=== PATIENT | female | born 1935 | race Caucasian/White ===

== ENCOUNTER 2016-09-03 12:04 | Emergency (ER) | payer OTHER ==
[~2016-09-03] VITALS: Ht 147.3 cm; Wt 90.8 kg
[~2016-09-03 12:04] MED LIST: ALBU1AER9 INH; CALC500C50 PO; CHOL20009 PO; DOXY100C2 PO; IBUP1CAP9 PO; METF500T5 PO; METO1TAB66 PO; MONT1TAB3 PO; NRV/10 PO; OMEG500C2 PO; QUIN20TA30 PO; ROSU20TA PO; SPIR25TA89 PO
[2016-09-03 12:08] VITALS: TEMP 36.9; Ht 147.3 cm; Wt 90.8 kg
--- NOTE | 2016-09-03 12:49 | EMERGENCY ROOM VISIT NOTE ---
History Report prepared by Maverick: Tanner Silva Under the Supervision of: Dr. Shereen Pierre M.D. First contact with patient: 12:24 Chief Complaint: BACK PAIN Stated Complaint: LOWER BACK PAIN History of Present Illness The patient is an 81 year old female who presents to the Emergency Room with complaints of worsening back pain that started a month ago. The patient presented to [facility] because the discomfort was more severe today than it had been. At [facility], they did an X-Ray that was inconclusive and they recommended she present to the ED for further evaluation. She notes that the discomfort is mostly on the left side and radiates upwards. The discomfort is worse with bending. She notes that she did not do more activity last night than she normally does. She denies urinary symptoms, abdominal pain, or fever. Source of History: patient Onset: a month ago Position: back Symptom Intensity: severe Timing: other (persistent) Modifying Factors (Worsening): other (bending) Associated Symptoms: No abdominal pain, No fevers, No urinary symptoms Review of Systems See HPI for pertinent positives & negatives. A total of 10 systems reviewed and were otherwise negative. Past Medical & Surgical Medical Problems: (1) Asthma (2) Diabetes (3) Heart disease (4) Hyperlipemia (5) Hypertension Surgical Problems: (1) History of appendectomy (2) History of cholecystectomy (3) History of hysterectomy (4) History of thyroidectomy Family History Diabetes mellitus Gallbladder disease Heart disease Hypertension Social History Smoking Status: Never Smoker Alcohol Use: none Marital Status: Housing Status: lives with significant other Occupation Status: retired Current/Historical Medications Scheduled Amlodipine Besylate (Amlodipine Besylate), 10 MG PO DAILY Calcium Carbonate (Antacid) (Tums), 2 TABS PO BIDM Cholecalciferol (Vitamin D), 2,000 UNITS PO DAILY Metformin Hcl Er (Glucophage Er), 500 MG PO QPM Metoprolol Succinate (Toprol Xl), 50 MG PO DAILY Montelukast Sodium (Singulair), 10 MG PO DAILY Rogers-3 Fatty Acids (Fish Oil), 1,000 MG PO BID Quinapril Hcl (Quinapril Hcl), 20 MG PO DAILY Rosuvastatin Calcium (Crestor), 20 MG PO DAILY Spironolactone (Aldactone), 25 MG PO DAILY Scheduled PRN Albuterol Sulfate (Proair Hfa), 2 PUFFS INH Q6H PRN for Shortness of Breath Doxycycline Hyclate (Vibramycin), 100 MG PO DAILY PRN for PRN Ibuprofen (Ibuprofen), 200 MG PO DAILY PRN for Pain Allergies Coded Allergies: Hydrochlorothiazide (Unverified Allergy, Unknown, unknown, 01/23/16) Physical Exam Vital Signs Date Time Temp Pulse Resp B/P Pulse Ox O2 Delivery O2 Flow Rate FiO2 09/03/16 14:50 78 16 154/68 96 09/03/16 13:47 68 16 134/70 09/03/16 12:08 36.9 71 16 148/65 97 Room Air Physical Exam Vital signs reviewed. General: Elderly-appearing female, in no significant distress, obese. HEENT: No scleral icterus, PERRLA, neck supple. Atraumatic. Cardiovascular: Regular rate and rhythm, no extra sounds. Pulmonary: Clear to auscultation bilaterally, normal work of breathing. Abdomen: Soft, tenderness to palpation to left lower quadrant to deep palpation , nondistended, positive bowel sounds. Musculoskeletal: Atraumatic, no peripheral edema. Mild tenderness over left lumbar spine, no CVA tenderness. Neurologic: Patient awake alert and oriented x 3, full strength in all 4 extremities. Cranial nerves 2 through 12 grossly intact. Skin: Warm, dry, no rash Medical Decision & Procedures ER Provider Diagnostic Interpretation: CT results as stated below per my review and radiologist interpretation: ABDOMEN AND PELVIS CT WITHOUT CONTRAST CT DOSE: 1042.71 mGycm HISTORY: Pain. Nausea. L flank pain TECHNIQUE: Multiaxial CT images of the abdomen and pelvis were performed without contrast. COMPARISON STUDY: None. FINDINGS: Lung bases are clear. Configuration of liver spleen and pancreas are unremarkable. There are several small hepatic hypodensities statistically consistent with cysts. Prior cholecystectomy. Pancreas is uniform. Kidneys are negative for calcification or hydronephrosis. Multiple lower pole left kidney suggests possibility of an exophytic mass measuring 2.9 x 1.9 cm. Bowel pattern is nonobstructive. There is no significant para-aortic or inguinal adenopathy. There are findings of sigmoid diverticulosis with evidence for moderate wall thickening. Mild pericolonic infiltrative change in the left lateral pericolonic region raising the possibility of acute diverticulitis. There is no evidence for abscess collection or obstruction. IMPRESSION: 1. Acute sigmoid diverticulitis. 2. No evidence for abscess collection or obstruction.. 3. Exophytic mass arising from the lower pole left kidney. A multi phase evaluation of the kidneys is suggested as initial follow-up. Alternatively, renal ultrasound could be utilized initially. 4. Study is otherwise negative post cholecystectomy Electronically signed by: Bruce Valdez M.D. 09/03/2016 2:07 PM Dictated Date/Time: 09/03/2016 2:02 PM Laboratory Results 09/03/16 13:20 Red Blood Count 4.45, Mean Corpuscular Volume 92.1, Mean Corpuscular Hemoglobin 31.9, Mean Corpuscular Hemoglobin Concent 34.6, Mean Platelet Volume 10.1, Neutrophils (%) (Auto) 56.4, Lymphocytes (%) (Auto) 31.4, Monocytes (%) (Auto) 11.8, Eosinophils (%) (Auto) 0.0, Basophils (%) (Auto) 0.4, Neutrophils # (Auto ) 2.64, Lymphocytes # (Auto) 1.47, Monocytes # (Auto) 0.55, Eosinophils # (Auto ) 0.00, Basophils # (Auto) 0.02 09/03/16 13:20 Test 09/03/16 13:15 09/03/16 13:20 Urine Color YELLOW Urine Appearance CLEAR (CLEAR) Urine pH 7.0 (4.5-7.5) Urine Specific Farrar 1.010 (1.000-1.030) Urine Protein NEG (NEG) Urine Glucose (UA) NEG (NEG) Urine Ketones NEG (NEG) Urine Occult Blood NEG (NEG) Urine Nitrite NEG (NEG) Urine Bilirubin NEG (NEG) Urine Urobilinogen NEG (NEG) Urine Leukocyte Esterase MODERATE (NEG) Urine WBC (Auto) 1-5 /hpf (0-5) Urine RBC (Auto) 0-4 /hpf (0-4) Urine Hyaline Casts (Auto) 0 /lpf (0-5) Urine Epithelial Cells (Auto) >30 /lpf (0-5) Urine Bacteria (Auto) NEG (NEG) White Blood Count 4.68 K/uL (4.8-10.8) Red Blood Count 4.45 M/uL (4.2-5.4) Hemoglobin 14.2 g/dL (12.0-16.0) Hematocrit 41.0 % (37-47) Mean Corpuscular Volume 92.1 fL (80-100) Mean Corpuscular Hemoglobin 31.9 pg (25-34) Mean Corpuscular Hemoglobin Concent 34.6 g/dl (32-36) Platelet Count 127 K/uL (130-400) Mean Platelet Volume 10.1 fL (7.4-10.4) Neutrophils (%) (Auto) 56.4 % Lymphocytes (%) (Auto) 31.4 % Monocytes (%) (Auto) 11.8 % Eosinophils (%) (Auto) 0.0 % Basophils (%) (Auto) 0.4 % Neutrophils # (Auto) 2.64 K/uL (1.4-6.5) Lymphocytes # (Auto) 1.47 K/uL (1.2-3.4) Monocytes # (Auto) 0.55 K/uL (0.11-0.59) Eosinophils # (Auto) 0.00 K/uL (0-0.5) Basophils # (Auto) 0.02 K/uL (0-0.2) RDW Standard Deviation 43.6 fL (36.4-46.3) RDW Coefficient of Variation 12.9 % (11.5-14.5) Immature Granulocyte % (Auto) 0.0 % Immature Granulocyte # (Auto) 0.00 K/uL (0.00-0.02) Anion Gap 5.0 mmol/L (3-11) Est Creatinine Clear Calc Drug Dose 46.3 ml/min Estimated GFR () 69.0 Estimated GFR (Non- 59.5 BUN/Creatinine Ratio 19.5 (10-20) Calcium Level 8.7 mg/dl (8.5-10.1) Total Bilirubin 0.5 mg/dl (0.2-1) Direct Bilirubin 0.1 mg/dl (0-0.2) Aspartate Amino Transf (AST/SGOT) 21 U/L (15-37) Alanine Aminotransferase (ALT/SGPT) 45 U/L (12-78) Alkaline Phosphatase 48 U/L (45-117) Total Protein 7.3 gm/dl (6.4-8.2) Albumin 3.7 gm/dl (3.4-5.0) Laboratory results per my review. Medications Administered Medications (Trade) Dose Ordered Sig/Janice Route Start Time Stop Time Status Last Admin Dose Admin Sodium Chloride (Nss 1000ml) 1,000 ml @ 125 mls/hr Q8H STAT IV 09/03/16 13:13 09/03/16 14:58 DC 09/03/16 13:28 125 MLS/HR ED Course 1242: Past medical records reviewed. The patient was evaluated in room A10. A complete history and physical examination was performed. 1313: Ordered NSS 1000 ml @ 125 mls/hr IV. 1436: Upon reevaluation, the patient appeared to have improvement of her symptoms. I discussed findings with her. She verbalized agreement of the treatment plan. She will follow-up with Dr. Acevedo - [facility] tomorrow in the clinic. The patient was discharged home. Medical Decision Differential diagnosis: Etiologies such as musculoskeletal, disc herniation, fracture, aortic disease, metastatic disease, cord compression, discitis, infection, renal colic, gastrointestinal, acute exacerbation of chronic back pain, sciatica, cauda equina, as well as others were entertained. This patient was evaluated and appeared to be in no significant distress. IV access was obtained and laboratory work was drawn. The patient was placed on the utility locate technician and found to be in a normal sinus rhythm. Patient was hydrated with normal saline solution. CT scan of the abdomen and pelvis was performed and reveals a mass on the left kidney. This may explain the patient' s flank discomfort. The patient was informed of the findings. There is no acute issue. The patient was asked to use oral Tylenol as needed for pain. She will follow-up with her physician tomorrow as scheduled by case management. Further workup can be ordered as an outpatient. The patient is aware of the plan and agrees. Impression Primary Impression: Left renal mass Additional Impression: Left flank pain Scribe Attestation The scribe's documentation has been prepared under my direction and personally reviewed by me in its entirety. I confirm that the note above accurately reflects all work, treatment, procedures, and medical decision making performed by me. Departure Information Dispostion Home / Self-Care Referrals Mavis Acevedo D.O. (PCP) Forms HOME CARE DOCUMENTATION FORM, IMPORTANT VISIT INFORMATION Patient Instructions My [facility] Additional Instructions Diagnosis: Left renal mass and flank pain Tylenol 650 mg every 6 hours as needed for pain. Warm compresses and gentle stretching. Follow-up with Dr. Acevedo tomorrow at 11 AM as scheduled by case management. Return to the emergency department for worsening of symptoms or any medical concerns. Problem Qualifiers
[2016-09-03] MEDS ORDERED: SODIUM CHLORIDE 0.9% 1000ML 1,000 ML IV STA (13:13)
[2016-09-03 13:33] LABS: BASO % 0.4 %; BASO ABS # 0.02 K/uL (0-0.2); COMPLETE YES; LYMPH % 31.4 %; LYMPH ABS # 1.47 K/uL (1.2-3.4); MEAN CELL VOLUME 92.1 fL (80-100); MEAN CORPUSCULAR HEMOGLOBIN 31.9 pg (25-34); MEAN CORPUSCULAR HGB CONC 34.6 g/dl (32-36); MEAN PLATELET VOLUME 10.1 fL (7.4-10.4); MONO % 11.8 %; NEUT % 56.4 %; PLATELET COUNT 127 K/uL (130-400); RED BLOOD COUNT 4.45 M/uL (4.2-5.4); WHITE BLOOD COUNT 4.68 K/uL (4.8-10.8)
[2016-09-03 13:34] LABS: URINE APPEARANCE CLEAR (CLEAR); URINE BILIRUBIN NEG (NEG); URINE COLOR YELLOW; URINE EPITHELIAL CELL AUTO >30 /lpf (0-5); URINE NITRITE NEG (NEG); UROBILINOGEN NEG (NEG); ZZUR CULT IF INDIC CLEAN CATCH NO
[2016-09-03 13:46] LABS: MANUAL MICROSCOPIC REQUIRED? NO; REVIEW REQ? NO
[2016-09-03 13:55] LABS: BUN/CREATININE RATIO 19.5 (10-20); CALCIUM 8.7 mg/dl (8.5-10.1); CREATININE 0.9 mg/dl (0.60-1.20); POTASSIUM 4.2 mmol/L (3.5-5.1)
--- NOTE | 2016-09-03 14:08 | DIAGNOSTIC IMAGING REPORT ---
ABDOMEN AND PELVIS CT WITHOUT CONTRAST CT DOSE: 1042.71 mGycm HISTORY: Pain. Nausea. L flank pain TECHNIQUE: Multiaxial CT images of the abdomen and pelvis were performed without contrast. COMPARISON STUDY: None. FINDINGS: Lung bases are clear. Configuration of liver spleen and pancreas are unremarkable. There are several small hepatic hypodensities statistically consistent with cysts. Prior cholecystectomy. Pancreas is uniform. Kidneys are negative for calcification or hydronephrosis. Multiple lower pole left kidney suggests possibility of an exophytic mass measuring 2.9 x 1.9 cm. Bowel pattern is nonobstructive. There is no significant para-aortic or inguinal adenopathy. There are findings of sigmoid diverticulosis with evidence for moderate wall thickening. Mild pericolonic infiltrative change in the left lateral pericolonic region raising the possibility of acute diverticulitis. There is no evidence for abscess collection or obstruction. IMPRESSION: 1. Acute sigmoid diverticulitis. 2. No evidence for abscess collection or obstruction.. 3. Exophytic mass arising from the lower pole left kidney. A multi phase evaluation of the kidneys is suggested as initial follow-up. Alternatively, renal ultrasound could be utilized initially. 4. Study is otherwise negative post cholecystectomy Electronically signed by: Bruce Valdez M.D. 09/03/2016 2:07 PM Dictated Date/Time: 09/03/2016 2:02 PM
[2016-09-03 14:50] VITALS: BP 154/68; PULSE 78; O2SAT 96
== END 2016-09-03 14:51 | disposition home or self-care (01) ==
LOC: C.EDB 12:06 → C.EDA 14:51
DX: N28.89 Other specified disorders of kidney and ureter (principal); R10.9 Unspecified abdominal pain; J45.909 Unspecified asthma, uncomplicated; E11.9 Type 2 diabetes mellitus without complications; E78.5 Hyperlipidemia, unspecified; I10 Essential (primary) hypertension; K57.32 Diverticulitis of large intestine without perforation or abscess without bleeding; Z90.710 Acquired absence of both cervix and uterus; Z83.3 Family history of diabetes mellitus; Z82.49 Family history of ischemic heart disease and other diseases of the circulatory system

== ENCOUNTER → 2016-10-28 | Outpatient (CLI) | payer OTHER ==
[~2016-10-28] MED LIST changes: +ASPI81TA28 PO; +CHOL20007 PO; +INSDGIPEN SQ; +METO-452 PO; -METO1TAB66 PO; +TRAM-10 PO
[2016-10-28 15:07] LABS: ALT/SGPT 51 U/L (12-78); BLOOD UREA NITROGEN 20 mg/dl (7-18); BUN/CREATININE RATIO 24.2 (10-20); CARBON DIOXIDE 33 mmol/L (21-32); CHLORIDE 103 mmol/L (98-107); CHOLESTEROL 148 mg/dl (0-200); CREATININE 0.84 mg/dl (0.60-1.20); GLUCOSE 89 mg/dl (70-99); POTASSIUM 4.3 mmol/L (3.5-5.1); SODIUM 139 mmol/L (136-145); TRIGLYCERIDES 321 mg/dl (0-150); VERY LOW DENSITY LIPOPROT CALC 64 mg/dl
[2016-10-28 15:13] LABS: CALCIUM 9.7 mg/dl (8.5-10.1)
[2016-10-28 15:16] LABS: ALB/GLOB RATIO 1.2 (0.9-2); ALKALINE PHOSPHATASE 51 U/L (45-117); AST/SGOT 28 U/L (15-37); CHOLESTEROL/HDL RATIO 3.3; HDL CHOLESTEROL 45 mg/dl; LDL CHOLESTEROL CALCULATED 39 mg/dl
[2016-10-28 15:31] LABS: RATIO 4.8 mcg/mg (0-30.0)
[2016-10-29 06:02] LABS: ESTIMATED AVERAGE GLUCOSE 137 mg/dl; HA1C FLAG Normal (Normal)
== END | disposition home or self-care (01) ==
LOC: C.LAB1850 12:44
PROVIDERS: ATTEND Nurse Practitioner Adult Health
DX: E11.9 Type 2 diabetes mellitus without complications (principal); E78.5 Hyperlipidemia, unspecified; I10 Essential (primary) hypertension; E66.01 Morbid (severe) obesity due to excess calories

== ENCOUNTER 2016-11-29 14:32 | Emergency (ER) | payer OTHER ==
[~2016-11-29] VITALS: Ht 147.3 cm; Wt 91.0 kg
[~2016-11-29 14:32] MED LIST changes: -ASPI81TA28 PO; -CHOL20007 PO; -INSDGIPEN SQ; -TRAM-10 PO
[2016-11-29 14:35] VITALS: TEMP 36.8; Ht 147.3 cm; Wt 91.0 kg
[2016-11-29] MEDS ORDERED: INSDGIPEN SQ (15:28)
[2016-11-29] MEDS ORDERED: ASPI81TA28 PO (15:30)
[2016-11-29] MEDS ORDERED: CHOL20007 PO (15:37)
--- NOTE | 2016-11-29 15:55 | DIAGNOSTIC IMAGING REPORT ---
CERVICAL SPINE 5 VIEWS HISTORY: R neck/shoulder pain COMPARISON: None. FINDINGS: The cervical spine is visualized from C1 through the superior endplate of T1. There is no fracture. No subluxation. Considerable degenerative disc change of the mid to lower cervical region. Prevertebral soft tissues and the atlantodens interval are intact. IMPRESSION: Considerable degenerative change. No acute process. Electronically signed by: Bruce Valdez M.D. 11/29/2016 3:54 PM Dictated Date/Time: 11/29/2016 3:53 PM
--- NOTE | 2016-11-29 15:56 | DIAGNOSTIC IMAGING REPORT ---
RIGHT SHOULDER MIN 2 VIEWS ROUTINE CLINICAL HISTORY: R neck/shoulder pain Right pain COMPARISON: None. DISCUSSION: Calcific supraspinatus tendinitis. Moderate degenerative change glenohumeral as well as acromioclavicular joint. No evidence for fracture. There is no evidence for soft tissue swelling. IMPRESSION: Calcific supraspinatus tendinitis. Moderate degenerative change. Electronically signed by: Bruce Valdez M.D. 11/29/2016 3:55 PM Dictated Date/Time: 11/29/2016 3:54 PM
[2016-11-29 16:30] VITALS: BP 133/68; PULSE 69; O2SAT 95
--- NOTE | 2016-11-29 16:41 | EMERGENCY ROOM VISIT NOTE ---
ED Visit Note First contact with patient: 14:40 Patient was seen by our PA/[employer] UP [employer]. I was involved in the patient's care and did evaluate the patient myself. I was involved in the care throughout the ER stay. The patient has right shoulder pain, she has calcific tendinitis on x-ray, she will be sent to orthopedics for follow-up.
[2016-11-29] MEDS ORDERED: TRAM-10 PO (16:54)
--- NOTE | 2016-11-29 17:02 | EMERGENCY ROOM VISIT NOTE ---
History First contact with patient: 14:40 Chief Complaint: SHOULDER PAIN Stated Complaint: PAIN IN SHOULDER PAIN History of Present Illness The patient is a 81 year old female who presents to the Emergency Room with complaints of right shoulder and neck pain for the past 4 days. The patient denies any known injury. The patient reports that she is not physically active , and cannot recall doing anything around the house to have injured her neck or shoulder. The patient is a back and side sleeper. She denies any prior history of neck stiffness or discomfort. She does report a history of moderately severe osteoarthritis, mostly in her knees. She also denies any history of right shoulder pain. She has noticed limited range of motion of the shoulder over the past few days as well. She reports that the pain radiates from her neck to her right elbow. She denies any paresthesias or numbness of the right hand or fingers. The patient is [id number], and rates her discomfort a 7 out of 10. Review of Systems 10 system review was performed and was negative except for pertinent positives and negatives as indicated in history of present illness Past Medical/Surgical History Medical Problems: (1) Asthma (2) Diabetes (3) Heart disease (4) Hyperlipemia (5) Hypertension (6) Osteoarthritis Surgical Problems: (1) History of appendectomy (2) History of cholecystectomy (3) History of hysterectomy (4) History of thyroidectomy Family History Diabetes mellitus Gallbladder disease Heart disease Hypertension Social History Smoking Status: Never Smoker Alcohol Use: none Marital Status: Housing Status: lives with significant other Occupation Status: retired Current/Historical Medications Scheduled Amlodipine Besylate (Amlodipine Besylate), 10 MG PO DAILY Aspirin (Aspirin Ec), 81 MG PO QPM Calcium Carbonate (Antacid) (Tums), 2 TABS PO BIDM Cholecalciferol (Vitamin D3), 2,000 UNITS PO DAILY Insulin Glargine (Lantus Solostar), 20 UNITS SQ QAM Metformin Hcl Er (Glucophage Er), 500 MG PO QPM Metoprolol Succinate (Toprol Xl), 50 MG PO DAILY Montelukast Sodium (Singulair), 10 MG PO DAILY Quinapril Hcl (Quinapril Hcl), 20 MG PO DAILY Rosuvastatin Calcium (Crestor), 20 MG PO DAILY Spironolactone (Aldactone), 25 MG PO DAILY Scheduled PRN Albuterol Sulfate (Proair Hfa), 2 PUFFS INH Q6H PRN for Shortness of Breath Doxycycline Hyclate (Vibramycin), 100 MG PO DAILY PRN for PRN Ibuprofen (Ibuprofen), 200 MG PO DAILY PRN for Pain Tramadol (Ultram), 1 TAB PO Q4H PRN for Pain Allergies Coded Allergies: Hydrochlorothiazide (Unverified Allergy, Unknown, unknown, 01/23/16) Physical Exam Vital Signs Date Time Temp Pulse Resp B/P (MAP) Pulse Ox O2 Delivery O2 Flow Rate FiO2 11/29/16 16:30 69 16 133/68 95 Room Air 11/29/16 14:35 36.8 80 20 157/77 96 Room Air Physical Exam CONSTITUTIONAL: Healthy and well nourished. Alert and oriented X 3 with positive affect. Patient does not appear in any acute distress. HEENT: Normocephalic, atraumatic. Pupils equal, round and reactive. Ears and nares are clear. No scleral icterus or conjunctival injection/pallor. NECK: Patient has mild discomfort with left lateral gaze. She has mild tenderness over the right lower cervical nerve roots. No focal tenderness through the paraspinous muscles or central cervical spine. She does have mild tenderness to the right sternocleidomastoid muscle. No muscle rigidity noted. No carotid bruits or JVD on examination. RESPIRATORY: Clear to auscultation bilaterally with no wheezing, crackles, rhonchi or stridor. Breathing does not cause any discomfort. CARDIOVASCULAR: Regular rate and rhythm with no murmurs, rubs or gallops. MUSCULOSKELETAL: Examination shows mild tenderness to palpation about the shoulder. She has noticeable loss of range of motion, limited to approximately 45 of abduction and forward flexion. She has no focal tenderness over the acromioclavicular joint, bicipital groove or biceps/triceps musculature. No focal tenderness to palpation about the elbow. Negative compression test and Tinel at the cubital tunnel. Equal hand home sales service professional bilaterally. Distal pulses are intact. INTEGUMENTARY: No rash or other significant dermatologic conditions noted. NEUROLOGIC: No focal neurologic deficits noted. Right hand median, radial and ulnar motor and sensory are intact. Right deltoid sensation is intact. Medical Decision & Procedures ER Provider Diagnostic Interpretation: My interpretation of an ECG shows a normal sinus rhythm of [address] elevation or other conduction abnormalities. My interpretation of cervical spine x-rays show significant degenerative changes without evidence for fracture. My interpretation of right shoulder x-rays shows a calcific supraspinatus tendinitis without evidence for fractures or dislocation. Mild glenohumeral arthritis is also noted. There is no superior migration of the humeral head in relation to the glenohumeral joint. Radiologist reports were also reviewed. ED Course Patient history and physical exam were performed. Nurse's notes were reviewed. Vital signs were reviewed and normal. The patient refused any analgesics on initial exam. I did elect to do an ECG, showing a normal sinus rhythm. X-rays of the cervical spine shows significant degenerative changes. X-rays of the right shoulder shows a calcific tendinitis of the supraspinatus tendon. The patient was advised of her x-ray findings. She was encouraged to follow-up with her orthopedic surgeon for further reevaluation and management. I did suggest alternating ice and heat to the shoulder. I also encouraged her to perform range of motion exercises to prevent stiffness. The patient reports that she can tolerate Motrin and Tylenol. She was encouraged to alternate these medications for baseline pain relief. She was provided a prescription for Ultram if needed for breakthrough pain. The patient was happy with plan of care, voice understanding of all discharge instructions, and rated her pain a 5 out of 10 at the time of discharge, continuing to refuse any additional medications. The patient was also seen and examined by Dr. Ruth, ED attending physician, who agrees with workup and plan of care. Medical Decision I suspect most of the patient's discomfort is secondary to a right super spinatus tendinitis. However, I cannot rule out the possibility of a mild cervical radiculopathy. I do not suspect cardiopulmonary etiology. She has no rash to suggest herpes zoster. The patient has no carotid bruits on auscultation. Impression Primary Impression: Right supraspinatus tendonitis Additional Impression: Neck pain on right side Departure Information Prescriptions Tramadol (Ultram) 50 Mg Tab 1 TAB PO Q4H Y for Pain, #15 TAB For Initial Treatment Prov: Sanchez Gilbert PA 11/29/16 Referrals Mavis Acevedo D.O. (PCP) Patient Instructions My [facility] Problem Qualifiers
== END 2016-11-29 17:08 | disposition home or self-care (01) ==
LOC: C.EDB 14:33 → C.EDA 17:08
DX: M75.81 Other shoulder lesions, right shoulder (principal); M54.2 Cervicalgia; J45.909 Unspecified asthma, uncomplicated; E11.9 Type 2 diabetes mellitus without complications; I51.9 Heart disease, unspecified; E78.5 Hyperlipidemia, unspecified; I10 Essential (primary) hypertension; M19.90 Unspecified osteoarthritis, unspecified site; Z83.3 Family history of diabetes mellitus; Z83.79 Family history of other diseases of the digestive system; Z82.49 Family history of ischemic heart disease and other diseases of the circulatory system; Z79.4 Long term (current) use of insulin; Z79.82 Long term (current) use of aspirin; Z79.899 Other long term (current) drug therapy

== ENCOUNTER → 2017-05-15 | Outpatient (CLI) | payer OTHER ==
[~2017-05-15] MED LIST changes: +ASPI81TA28 PO; +CHOL20007 PO; -CHOL20009 PO; +INSDGIPEN SQ; -OMEG500C2 PO; +TRAM-10 PO
[2017-05-15 11:57] LABS: HEMATOCRIT 43.8 % (37-47)
[2017-05-15 12:21] LABS: ESTIMATED AVERAGE GLUCOSE 137 mg/dl; HA1C FLAG Normal (Normal)
== END | disposition home or self-care (01) ==
LOC: C.LABPBG 08:31
PROVIDERS: ATTEND Nurse Practitioner Adult Health
DX: E11.9 Type 2 diabetes mellitus without complications (principal); Z51.81 Encounter for therapeutic drug level monitoring; Z79.4 Long term (current) use of insulin

== ENCOUNTER 2017-08-03 12:15 | Emergency (ER) | payer OTHER ==
[~2017-08-03] VITALS: Ht 147.3 cm; Wt 91.0 kg
[~2017-08-03 12:15] MED LIST changes: -TRAM-10 PO
[2017-08-03 12:18] VITALS: Ht 147.3 cm; Wt 91.0 kg
[2017-08-03] MEDS ORDERED: OPTIRAY 320 IV PRN (13:45)
[2017-08-03 13:50] LABS: BASO % 0.2 %; BASO ABS # 0.01 K/uL (0-0.2); EOS % 0.2 %; EOS ABS # 0.01 K/uL (0-0.5); HEMATOCRIT 44.2 % (37-47); HEMOGLOBIN 15.3 g/dL (12.0-16.0); LYMPH % 30.1 %; LYMPH ABS # 1.72 K/uL (1.2-3.4); MEAN CELL VOLUME 91.9 fL (80-100); MEAN CORPUSCULAR HEMOGLOBIN 31.8 pg (25-34); MEAN CORPUSCULAR HGB CONC 34.6 g/dl (32-36); MEAN PLATELET VOLUME 10.4 fL (7.4-10.4); MONO % 10.1 %; MONO ABS # 0.58 K/uL (0.11-0.59); NEUT % 59.4 %; PLATELET COUNT 137 K/uL (130-400); RED CELL DISTRIBUTION WIDTH CV 12.7 % (11.5-14.5); RED CELL DISTRIBUTION WIDTH SD 42.6 fL (36.4-46.3); WHITE BLOOD COUNT 5.72 K/uL (4.8-10.8)
[2017-08-03] MEDS ORDERED: ALBU18002 INH (13:55)
[2017-08-03 13:57] LABS: CALCIUM 9.5 mg/dl (8.5-10.1); CREATININE 0.87 mg/dl (0.60-1.20)
[2017-08-03 14:00] LABS: TOTAL PROTEIN 7.9 gm/dl (6.4-8.2)
--- NOTE | 2017-08-03 14:54 | DIAGNOSTIC IMAGING REPORT ---
CT ANGIOGRAPHY HEAD COMBO CT DOSE: 657.79 mGy.cm CLINICAL HISTORY: Atypical headache TECHNIQUE: Unenhanced images were obtained the brain. CT angiography was then performed in a dynamic helical fashion during intravenous administration of 93 cc of Optiray 320. MIP imaging was performed A dose lowering technique was utilized adhering to the principles of ALARA. COMPARISON STUDY: Noncontrast head CT dated 01/23/2016 FINDINGS: Unenhanced images reveal no intra or extra-axial mass lesions. There is no CT evidence of acute cortical infarction. There is no midline shift. There is no acute hemorrhage. There is no hydrocephalus. There are patchy white matter hypodensities likely small vessel basis. Postcontrast images reveal narrowing of the distal left vertebral artery. 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 There are no major intracranial branch occlusions. There are no additional lesions suspicious for aneurysm. There are no pathologically enhancing masses. There is no evidence of dural venous sinus thrombosis. IMPRESSION: 1. No evidence of acute intracranial hemorrhage 2. 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 08/03/2017 2:52 PM Dictated Date/Time: 08/03/2017 2:40 PM
--- NOTE | 2017-08-03 15:26 | EMERGENCY ROOM VISIT NOTE ---
History Report prepared by Maverick: Trav Love Under the Supervision of: Alicia MullerO. First contact with patient: 13:15 Chief Complaint: HEADACHE Stated Complaint: HEADACHE History of Present Illness The patient is an 82 year old female who presents to the Emergency Room with complaints of a persistent headache starting around 0730 this morning. The patient states that she is a diabetic, and she was switched from Lantus to Tresiba, and she states that she got a headache for a week and was put back on Lantus and felt better. She then went back on the Tresiba two days ago, and the headache came back today, and she states that the pain feels similar. The patient notes that she had some abdominal pain at 0500 this morning, and it went away when the headache came. She denies any changes in vision, black stools , bloody stools, change in urine, nausea, vomiting, fevers, and chills. The patient notes that she is a little bit light headed and has some intermittent chest pain, though she has a history of GERD. The patient states that her sugar was 132 this morning which is high for her, and she has not eaten any food today. She states that she took and Excedrin this morning, and she states that this has helped her headache. Source of History: patient Onset: 0730 this morning Position: head Quality: ache Timing: other (persistent) Modifying Factors (Relieving): other (Excedrin) Associated Symptoms: No fevers, No chills, No nausea, No vomiting Note: Associated symptoms: Light headed. Review of Systems See HPI for pertinent positives & negatives. A total of 10 systems reviewed and were otherwise negative. Past Medical & Surgical Medical Problems: (1) Asthma (2) Diabetes (3) Heart disease (4) Hyperlipemia (5) Hypertension (6) Osteoarthritis Surgical Problems: (1) History of appendectomy (2) History of cholecystectomy (3) History of hysterectomy (4) History of thyroidectomy Family History Diabetes mellitus Gallbladder disease Heart disease Hypertension Social History Smoking Status: Never Smoker Alcohol Use: none Marital Status: Housing Status: lives with significant other Occupation Status: retired Current/Historical Medications Scheduled Amlodipine Besylate (Amlodipine Besylate), 10 MG PO DAILY Calcium Carbonate (Antacid) (Tums), 2 TABS PO BIDM Cholecalciferol (Vitamin D3), 2,000 UNITS PO DAILY Insulin Glargine (Lantus Solostar), 22 UNITS SQ QAM Metformin Hcl Er (Glucophage Er), 500 MG PO QPM Metoprolol Succinate (Toprol Xl), 50 MG PO DAILY Montelukast Sodium (Singulair), 10 MG PO DAILY Quinapril Hcl (Quinapril Hcl), 2 TABS PO DAILY Rosuvastatin Calcium (Crestor), 20 MG PO DAILY Spironolactone (Aldactone), 25 MG PO DAILY Scheduled PRN Albuterol Sulfate (Proair Respiclick), 1 PUFF INH DAILY PRN for SOB/Wheezing Doxycycline Hyclate (Vibramycin), 100 MG PO DAILY PRN for PRN Ibuprofen (Ibuprofen), 200 MG PO DAILY PRN for Pain Allergies Coded Allergies: Hydrochlorothiazide (Unverified Allergy, Unknown, unknown, 08/03/17) Physical Exam Vital Signs Date Time Temp Pulse Resp B/P (MAP) Pulse Ox O2 Delivery O2 Flow Rate FiO2 08/03/17 16:37 37.1 62 18 129/70 96 Room Air 08/03/17 15:37 37.0 59 18 133/67 95 Room Air 08/03/17 13:56 62 18 121/60 98 Room Air 08/03/17 12:53 61 08/03/17 12:18 36.6 71 16 146/76 96 Physical Exam GENERAL: alert, well appearing, well nourished, no distress, non-toxic HEAD: no reproducible tenderness, no palpable mass at temples EYE EXAM: normal conjunctiva, PERRL and EOM's grossly intact OROPHARYNX: no exudate, no erythema, lips, buccal mucosa, and tongue normal and mucous membranes are moist NECK: supple, no nuchal rigidity, no adenopathy, non-tender LUNGS: Clear to auscultation. Normal chest wall mechanics HEART: no murmurs, S1 normal and S2 normal ABDOMEN: abdomen soft, non-tender, normo-active bowel sounds, no masses, no rebound or guarding. BACK: Back is symmetrical on inspection and there is no deformity, no midline tenderness, no CVA tenderness. SKIN: no rashes and no bruising UPPER EXTREMITIES: upper extremities are grossly normal. LOWER EXTREMITIES: No pitting edema. NEURO EXAM: Normal sensorium, cranial nerves II-XII intact, normal speech, no weakness of arms, no weakness of legs. No drift. Gross sensation intact. Medical Decision & Procedures ER Provider Diagnostic Interpretation: Radiology results have been interpreted by the radiologist and reviewed by me. CT ANGIOGRAPHY HEAD COMBO CT DOSE: 657.79 mGy.cm CLINICAL HISTORY: Atypical headache TECHNIQUE: Unenhanced images were obtained the brain. CT angiography was then performed in a dynamic helical fashion during intravenous administration of 93 cc of Optiray 320. MIP imaging was performed A dose lowering technique was utilized adhering to the principles of ALARA. COMPARISON STUDY: Noncontrast head CT dated 01/23/2016 FINDINGS: Unenhanced images reveal no intra or extra-axial mass lesions. There is no CT evidence of acute cortical infarction. There is no midline shift. There is no acute hemorrhage. There is no hydrocephalus. There are patchy white matter hypodensities likely small vessel basis. Postcontrast images reveal narrowing of the distal left vertebral artery. 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 There are no major intracranial branch occlusions. There are no additional lesions suspicious for aneurysm. There are no pathologically enhancing masses. There is no evidence of dural venous sinus thrombosis. IMPRESSION: 1. No evidence of acute intracranial hemorrhage 2. 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 08/03/2017 2:52 PM Dictated Date/Time: 08/03/2017 2:40 PM Laboratory Results 08/03/17 12:50 Red Blood Count 4.81, Mean Corpuscular Volume 91.9, Mean Corpuscular Hemoglobin 31.8, Mean Corpuscular Hemoglobin Concent 34.6, Mean Platelet Volume 10.4, Neutrophils (%) (Auto) 59.4, Lymphocytes (%) (Auto) 30.1, Monocytes (%) (Auto) 10.1, Eosinophils (%) (Auto) 0.2, Basophils (%) (Auto) 0.2, Neutrophils # (Auto ) 3.40, Lymphocytes # (Auto) 1.72, Monocytes # (Auto) 0.58, Eosinophils # (Auto ) 0.01, Basophils # (Auto) 0.01 08/03/17 12:50 Test 08/03/17 12:50 08/03/17 13:04 2/19/18 14:00 White Blood Count 5.72 K/uL (4.8-10.8) Red Blood Count 4.81 M/uL (4.2-5.4) Hemoglobin 15.3 g/dL (12.0-16.0) Hematocrit 44.2 % (37-47) Mean Corpuscular Volume 91.9 fL (80-100) Mean Corpuscular Hemoglobin 31.8 pg (25-34) Mean Corpuscular Hemoglobin Concent 34.6 g/dl (32-36) Platelet Count 137 K/uL (130-400) Mean Platelet Volume 10.4 fL (7.4-10.4) Neutrophils (%) (Auto) 59.4 % Lymphocytes (%) (Auto) 30.1 % Monocytes (%) (Auto) 10.1 % Eosinophils (%) (Auto) 0.2 % Basophils (%) (Auto) 0.2 % Neutrophils # (Auto) 3.40 K/uL (1.4-6.5) Lymphocytes # (Auto) 1.72 K/uL (1.2-3.4) Monocytes # (Auto) 0.58 K/uL (0.11-0.59) Eosinophils # (Auto) 0.01 K/uL (0-0.5) Basophils # (Auto) 0.01 K/uL (0-0.2) RDW Standard Deviation 42.6 fL (36.4-46.3) RDW Coefficient of Variation 12.7 % (11.5-14.5) Immature Granulocyte % (Auto) 0.0 % Immature Granulocyte # (Auto) 0.00 K/uL (0.00-0.02) Erythrocyte Sedimentation Rate 17 mm/hr (0-21) Anion Gap 7.0 mmol/L (3-11) Est Creatinine Clear Calc Drug Dose 47.1 ml/min Estimated GFR () 71.4 Estimated GFR (Non- 61.6 BUN/Creatinine Ratio 17.5 (10-20) Calcium Level 9.5 mg/dl (8.5-10.1) Magnesium Level 2.1 mg/dl (1.8-2.4) Total Bilirubin 0.6 mg/dl (0.2-1) Aspartate Amino Transf (AST/SGOT) 24 U/L (15-37) Alanine Aminotransferase (ALT/SGPT) 38 U/L (12-78) Alkaline Phosphatase 42 U/L (45-117) Total Protein 7.9 gm/dl (6.4-8.2) Albumin 4.0 gm/dl (3.4-5.0) Globulin 3.9 gm/dl (2.5-4.0) Albumin/Globulin Ratio 1.0 (0.9-2) Bedside Glucose 114 mg/dl (70-90) Urine Color YELLOW Urine Appearance CLEAR (CLEAR) Urine pH 7.5 (4.5-7.5) Urine Specific [place] 1.010 (1.000-1.030) Urine Protein NEG (NEG) Urine Glucose (UA) NEG (NEG) Urine Ketones NEG (NEG) Urine Occult Blood NEG (NEG) Urine Nitrite NEG (NEG) Urine Bilirubin NEG (NEG) Urine Urobilinogen NEG (NEG) Urine Leukocyte Esterase MODERATE (NEG) Urine WBC (Auto) 5-10 /hpf (0-5) Urine RBC (Auto) 0-4 /hpf (0-4) Urine Hyaline Casts (Auto) 0 /lpf (0-5) Urine Epithelial Cells (Auto) >30 /lpf (0-5) Urine Bacteria (Auto) NEG (NEG) Laboratory results per my review. Medications Administered Medications (Trade) Dose Ordered Sig/Janice Route Start Time Stop Time Status Last Admin Dose Admin Acetaminophen (Tylenol Tab) 1,000 mg NOW STAT PO 08/03/17 15:34 08/03/17 15:35 DC 08/03/17 15:39 1,000 MG ECG Per My Interpretation Indication: other (headache) Rate (beats per minute): 63 Rhythm: sinus rhythm Findings: no acute ischemic change, no ectopy, other (Normal interval and normal axis) ED Course 1315: The patient was evaluated in room C12. A complete history and physical exam was performed. 1532: I talked to Dr. Vaca - Radiology, and he thinks that the CT results are most likely chronic. 1534: Tylenol Tab 1000mg PO 1600: I reevaluated the patient, and I updated her on the results. 1613: I talked to Genesis, the nurse from [facility], and we are going to change her long acting insulin, and she is going to call in a new prescription for her. 1620: Upon reevaluation, the patient is feeling better. I discussed the findings and the treatment plan with the patient. She verbalizes agreement and understanding. She was discharged home. Medical Decision Differential diagnosis: Etiologies such as migraine headache, meningitis, sinusitis, CO exposure, ICH, SAH, infection, tumor, headache, sinus thrombosis, arterial dissection, as well as others were entertained. I feel most likely pt symptoms from medication change. Doubt cva, cerebellar etiology, temporal arteritis, meningitis/encephalitis, sinusitis. Labs and imaging reassuring. Doubt vascular etiology. Discussed with nurse from PCP's office regarding med changes. They will call in new prescription, f/u with pt, and f/u response of BSG to meds. Pt's family comfortable with plan and verbalized understanding. Pt with stable VS throughout. Well appearing. Headache not the worst of her life, not sudden onset. Did not feel pt warranted LP. Medication Reconcilliation Current Medication List: was personally reviewed by me Blood Pressure Screening Patient's blood pressure: Elevated blood pressure Blood pressure disposition: Elevated BP felt to be situational Consults Time Called: 1600 Consulting Physician: Genesis, the nurse from [facility] Returned Call: 1613 I talked to Genesis, the nurse from [facility], and we are going to change her long acting insulin, and she is going to call in a new prescription for her. Impression Primary Impression: Headache Additional Impression: Medication adverse effect Scribe Attestation The scribe's documentation has been prepared under my direction and personally reviewed by me in its entirety. I confirm that the note above accurately reflects all work, treatment, procedures, and medical decision making performed by me. Departure Information Dispostion Home / Self-Care Referrals No Doctor, Assigned (PCP) Forms HOME CARE DOCUMENTATION FORM, IMPORTANT VISIT INFORMATION Patient Instructions My [facility] Additional Instructions Please do not take the new diabetic medication. Please discuss your diabetes regimen with your doctor. Please continue checking your blood sugar daily. You may use routine [id number] medications to treat any residual headache. Please make sure you're drinking plenty of water. If you have any recurrent headaches, develop vision changes, vomiting, dizziness, numbness or tingling, difficulty walking, fevers, you've any other new concerns, please return the emergency room. Please follow-up with your family doctor about your headaches. Problem Qualifiers Primary Impression: Headache Headache type: unspecified Headache chronicity pattern: episodic headache Intractability: not intractable Qualified Codes: R51 - Headache Additional Impression: Medication adverse effect Encounter type: initial encounter Qualified Codes: T88.7XXA - Unspecified adverse effect of drug or medicament, initial encounter
[2017-08-03] MEDS ORDERED: ACETAMINOPHEN 500 MG TAB PO STA (15:34)
[2017-08-03 16:37] VITALS: BP 129/70; PULSE 62; TEMP 37.1; O2SAT 96
== END 2017-08-03 16:46 | disposition home or self-care (01) ==
LOC: C.EDB 12:16 → C.EDC 16:46
DX: R51 Headache (principal); T38.3X5A Adverse effect of insulin and oral hypoglycemic [antidiabetic] drugs, initial encounter; X58.XXXA Exposure to other specified factors, initial encounter; E11.9 Type 2 diabetes mellitus without complications; K21.9 Gastro-esophageal reflux disease without esophagitis; J45.909 Unspecified asthma, uncomplicated; E78.5 Hyperlipidemia, unspecified; I10 Essential (primary) hypertension; M19.90 Unspecified osteoarthritis, unspecified site; Z90.49 Acquired absence of other specified parts of digestive tract; Z90.710 Acquired absence of both cervix and uterus; Z79.4 Long term (current) use of insulin; Z79.84 Long term (current) use of oral hypoglycemic drugs; Z83.3 Family history of diabetes mellitus; Z82.49 Family history of ischemic heart disease and other diseases of the circulatory system

== ENCOUNTER → 2017-09-28 | Outpatient (CLI) | payer OTHER ==
[~2017-09-28] MED LIST changes: +ALBU18002 INH; -ALBU1AER9 INH; -ASPI81TA28 PO
[2017-09-28 13:05] LABS: ALBUMIN 3.9 gm/dl (3.4-5.0); ALT/SGPT 38 U/L (12-78); AST/SGOT 21 U/L (15-37); BLOOD UREA NITROGEN 17 mg/dl (7-18); CARBON DIOXIDE 27 mmol/L (21-32); CHOLESTEROL 127 mg/dl (0-200); GLUCOSE 134 mg/dl (70-99); POTASSIUM 4.3 mmol/L (3.5-5.1); SODIUM 139 mmol/L (136-145)
[2017-09-28 13:08] LABS: HEMOGLOBIN A1C 6.4 % (4.5-5.6)
[2017-09-28 13:15] LABS: ALKALINE PHOSPHATASE 48 U/L (45-117); LDL CHOLESTEROL CALCULATED 47 mg/dl; TOTAL PROTEIN 7.5 gm/dl (6.4-8.2)
== END | disposition home or self-care (01) ==
LOC: C.LABPBG 08:14
PROVIDERS: ATTEND Nurse Practitioner Adult Health
DX: E11.9 Type 2 diabetes mellitus without complications (principal); E78.5 Hyperlipidemia, unspecified; I10 Essential (primary) hypertension; E66.01 Morbid (severe) obesity due to excess calories; M17.10 Unilateral primary osteoarthritis, unspecified knee; L71.9 Rosacea, unspecified

== ENCOUNTER 2019-01-31 11:46 | Observation (INO) ==
[2019-01-31] MEDS ORDERED: FAMOTIDINE 20MG/5ML IV PUSH IV STA (12:04)
[2019-01-31] MEDS ORDERED: SODIUM CHLORIDE 0.9% 500 ML IV SCH (12:15)
[2019-01-31] MEDS ORDERED: PANTOprazole 80 MG in DEXTROSE 5% 100 ML IV STA (12:16)
--- NOTE | 2019-01-31 12:25 | Emergency Department Note ---
Entered by Judy Peace acting as a scribe for History of Present Illness General Chief complaint: Rectal Bleed Stated complaint: RECTAL BLEED Time Seen by Provider: 01/31/19 11:53 Source: patient History of Present Illness Provider complaint: rectal bleed Onset (ago): hour(s) less than 1 Pain Consistency: + other (episode) Maximum Pain Intensity: 5 Quality: + other (rectal bleeding) Associated symptoms: + other (epigastric pain that is worse at night, Heme positive stool, dizzy when she goes from a laying to sitting or standing position); no nausea/vomiting Treatments prior to arrival: other (Protonix) The patient is an 83 year old female with PMHx of GI bleeding who presents to the ED with complaints of an episode of rectal bleeding that began less than 1 hour ago. The patient states that she went to [facility] prior to coming to the ED and they found Heme positive stool. The patient states that she has also had epigastric pain for 1 week. The patient notes that [facility] The patient rates this pain as a 5/10 when it occurs.The patient states that sitting up mildly relieves this pain. The patient states that she has not been taking her Protonix in the past few months, but started taking it again 2 days ago. The patient states that she gets dizzy when she goes from a laying to sitting or standing position. The patient denies vomiting. Home Medications Home Medications Medication Instructions Recorded Confirmed Type amlodipine 10 mg PO QAM 09/13/18 01/31/19 History calcium carbonate [Tums] 400 mg PO BIDM 09/13/18 01/31/19 History cholecalciferol (vitamin D3) 2,000 unit PO HS 09/13/18 01/31/19 History [Vitamin D3] metformin 500 mg PO HS 09/13/18 01/31/19 History metoprolol succinate 50 mg PO QAM 09/13/18 01/31/19 History montelukast 10 mg PO QAM 09/13/18 01/31/19 History quinapril 20 mg PO BID 09/13/18 01/31/19 History spironolactone 25 mg PO QAM 09/13/18 01/31/19 History pantoprazole 40 mg PO QAM 09/19/18 01/31/19 History rosuvastatin 20 mg PO HS 09/19/18 01/31/19 History acetaminophen [Tylenol Extra 500 mg PO Q6H PRN 01/31/19 01/31/19 History Strength] albuterol sulfate [ProAir HFA] 2 puff INHALATION QID PRN 01/31/19 01/31/19 History aspirin 81 mg PO DAILY 01/31/19 01/31/19 History insulin glargine [Basaglar KwikPen 10 unit SUBCUT QAM 01/31/19 01/31/19 History U-100 Insulin] Allergies Allergy/AdvReac Type Severity Reaction Status Date / Time hydrochlorothiazide Allergy Unknown unknown Unverified 01/31/19 12:21 Past Med/Surg History Medical History Obesity (Chronic) Hypertension (Chronic) Diabetes (Chronic) Hyperlipemia (Chronic) Asthma (Chronic) Osteoarthritis (Chronic) Heart disease (Chronic) Surgical History History of cardiac cath (Chronic) 05/2009, 08/2013; no stents placed History of hysterectomy (Chronic) History of appendectomy (Chronic) History of cholecystectomy (Chronic) History of thyroidectomy (Chronic) partial removal thyroid lobe. 02/11/2011 Family History Other Coronary heart disease Diabetes Hypertension Social History Preferred Language: Telugu Communication Ability: Effective Beliefs That Will Affect Care: None marital status: Current Living Situation: Spouse current occupational status: retired Other Information That Helps Us Care for You: No Feels Safe at Home: Yes Safety Concerns: Feels Safe At This Time Smoking Status: Never smoker Hx Alcohol Use: No Hx Substance Use: No Review of Systems See HPI for pertinent positives & negatives. and A total of 10 systems reviewed and were otherwise negative Physical Exam Vital Signs Vital Signs - 24 hr 01/31/19 11:49 01/31/19 12:20 01/31/19 13:23 Temperature 36.7 C Temperature Source Oral Sepsis Recent Fever Within 48 Hours No Sepsis Action Taken by Nursing No Action Required Pulse Rate 66 Pulse Rate [Apical] 55 L Pulse Rhythm [Apical] Regular Pulse Strength [Apical] Normal Respiratory Rate 20 20 Respiratory Effort / Characteristics Non-Labored Spontaneous Non-Labored Spontaneous Respiratory Depth Normal Normal Blood Pressure 127/66 Blood Pressure [Right Arm] 133/58 L Blood Pressure Mean 86 Blood Pressure Mean [Right Arm] 83 Blood Pressure Position [Right Arm] Sitting Pulse Oximetry 97 97 97 Oxygen Delivery Method Room Air Room Air Room Air GENERAL: Patient is in no acute distress. HEENT: No acute trauma, normocephalic atraumatic, mucous membranes moist, no nasal congestion, no scleral icterus. NECK: No stridor, no adenopathy, no meningismus, trachea is midline. LUNGS: Clear to auscultation bilaterally, no wheeze, no rhonchi, breath sounds equal. HEART: Without murmurs gallops or rubs, regular rate and rhythm. ABDOMEN: Soft, nontender, bowel sounds positive, no hernias, no peritonitis. EXTREMITIES: No cyanosis or edema, full range of motion of all the joints without pain or difficulty, no signs for acute trauma. NEUROLOGIC: Oriented x 3, no acute motor or sensory deficits, no focal weakness. SKIN: No rash, no jaundice, no diaphoresis. Course 1154: Past medical records reviewed. The patient was evaluated in room A3. A complete history and physical exam was performed. 1303: I reevaluated the patient and she is resting comfortably. I updated her on the test results and plan for admission. She verbally agrees and understands. 1309: I discussed the patient case with Gayla CARDOZA PA-C. She will be accepting the patient for Dr. Herrera GAJOANNA Hospitalist. They will evaluate the patient for further management. Consultations Consultation #1: I discussed the patient case with Gayla CARDOZA PA-C. She will be accepting the patient for Dr. Herrera GAJOANNA Hospitalist. They will evaluate the patient for further management. Time: 13:09 Administered Medications Pantoprazole Sodium 40 mg/ (Dextrose) 100 mls @ 20 mls/hr IV Q5H [facility] Stop: 03/02/19 12:29 Last Admin: 01/31/19 13:06 Dose: 20 mls/hr Documented by: [id number] Sodium Chloride (Nss 1000ml) 1,000 mls @ 80 mls/hr IV .[id number] [facility] Stop: 02/01/19 16:01 Last Admin: 01/31/19 15:46 Dose: 80 mls/hr Documented by: [id number] Insulin Aspart (Novolog Flexpen) 0 units SC Q6 [facility] Stop: 03/02/19 17:59 Last Admin: 01/31/19 17:26 Dose: Not Given Documented by: [id number] Cosigned by: [id number] Ioversol (Optiray 320 100ml) 90 ml IV ONCE PRN PRN Reason: Interaction Checking Stop: 02/04/19 16:52 Last Admin: 01/31/19 16:54 Dose: 90 ml Documented by: [id number] Discontinued Medications Famotidine (Pepcid 20mg Iv Push) 20 mg IV ONE STA Stop: 01/31/19 12:05 Last Admin: 01/31/19 12:25 Dose: 20 mg Documented by: [id number] Sodium Chloride (Nss) 500 mls @ 999 mls/hr IV .Q31M [facility] Stop: 01/31/19 12:45 Last Infusion: 01/31/19 12:55 Dose: 0 mls/hr Documented by: [id number] Admin: 01/31/19 12:20 Dose: 999 mls/hr Documented by: [id number] Pantoprazole Sodium 80 mg/ (Dextrose) 120 mls @ 480 mls/hr IV NOW STA Stop: 01/31/19 12:30 Last Infusion: 01/31/19 13:06 Dose: 0 mls/hr Documented by: [id number] Admin: 01/31/19 12:45 Dose: 480 mls/hr Documented by: [id number] Medical Decision Making Differential Diagnosis Differentials include gastritis, ulcer, upper GI bleed, lower GI bleed, anemia, electrolyte imbalance, liver failure, angina, UT, pancreatitis. Medical Records Attestation: I reviewed the patient's medical records. Home Medications Current Medication List: was personally reviewed by me Laboratory Data Attestation: I reviewed the patient's lab results. Result diagrams: 01/31/19 12:17 01/31/19 12:17 Lab Results 01/31/19 01/31/19 01/31/19 Range/Units 12:17 12:17 12:17 WBC 8.68 (4.8-10.8) K/uL RBC 4.72 (4.2-5.4) M/uL Hgb 15.7 (12.0-16.0) g/dL Hct 43.1 (37-47) % MCV 91.3 (80-100) fL MCH 33.3 (25-34) pg MCHC 36.4 H (32-36) g/dL RDW Std Deviation 42.2 (36.4-46.3) fL RDW Coeff of Milana 12.5 (11.5-14.5) % Plt Count 135 (130-400) K/uL MPV 9.7 (7.4-10.4) fL Immature Gran % (Auto) 0.2 % Neut % (Auto) 65.5 % Lymph % (Auto) 23.3 % Divide % (Auto) 9.0 % Eos % (Auto) 1.8 % Baso % (Auto) 0.2 % Immature Gran # (Auto) 0.02 (0.00-0.02) K/uL Neut # (Auto) 5.68 (1.4-6.5) K/uL Lymph # (Auto) 2.02 (1.2-3.4) K/uL Divide # (Auto) 0.78 H (0.11-0.59) K/uL Eos # (Auto) 0.16 (0-0.5) K/uL Baso # (Auto) 0.02 (0-0.2) K/uL Sodium 138 (136-145) mmol/L Potassium 4.2 (3.5-5.1) mmol/L Chloride 105 (98-107) mmol/L Carbon Dioxide 28 (21-32) mmol/L Anion Gap 6.0 (3-11) BUN 13 (7-18) mg/dl Creatinine 1.12 (0.6-1.2) mg/dl Est Cr Clr Drug Dosing 33.4 ml/min Est GFR ( Amer) 52.2 Est GFR (Non-Af Amer) 45.1 BUN/Creatinine Ratio 11.7 (10-20) Glucose 85 (70-99) mg/dl Calcium 9.6 (8.5-10.1) mg/dl Magnesium 2.3 (1.8-2.4) mg/dl Total Bilirubin 0.6 (0.2-1) mg/dl AST 18 (15-37) U/L ALT 30 (12-78) U/L Alkaline Phosphatase 47 (45-117) U/L Troponin I < 0.015 (0-0.045) ng/ml Total Protein 7.7 (6.4-8.2) gm/dl Albumin 4.0 (3.4-5.0) gm/dl Globulin 3.7 (2.5-4.0) gm/dl Albumin/Globulin Ratio 1.1 (0.9-2) Lipase 154 (73-393) U/L Blood Type O Negative Antibody Screen NEGATIVE Crossmatch See Detail Imaging Data Radiologist's Impression: Radiology results as stated below per my review and the radiologist's interpretation: XR chest 1V portable HISTORY: 83 years-old Female epig pain acute epigastric abdominal pain COMPARISON: CT abdomen and pelvis 09/13/2017, chest radiograph 03/10/2014 TECHNIQUE: Portable AP view of the chest FINDINGS: Cardiomediastinal and hilar silhouettes are within normal limits. No pneumothorax, large pleural effusion, overt pulmonary edema or focal airspace consolidation. Chronic blunting of the left costophrenic angle is likely secondary to atelectasis/scarring. Degenerative changes of the shoulders and spine. Cholecystectomy. IMPRESSION: No acute process. The above report was generated using voice recognition software. It may contain grammatical, syntax or spelling errors. Electronically signed by: Gavin Figueroa M.D. 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 No significant electrolyte abnormality or kidney failure. No elevation to the liver enzymes. Patient does not have pancreatitis by our testing. EKG shows a sinus rhythm, no acute ischemia. Cardiac enzyme testing x1 is not consistent with acute cardiac injury. Chest film does not show free air or pneumonia. Blood type was O-. The patient by report was heme positive on outpatient stool testing. The patient presents with epigastric abdominal pain, dizziness and dark, chocolate colored stool. She has a history of previous upper GI bleeding. She has not been using her Protonix as prescribed. The patient likely has gastritis and or an ulcer causing her difficulty. Given the heme positive dark stool earlier, given the dizziness, I did think a hospital stay was warranted. Patient received IV saline, she was given IV Protonix as a bolus and then was placed on a Protonix drip. She was given IV Pepcid. I spoke to the patient, I talked with case management. The on-call hospitalist was consulted. Impression & Plan GI bleed, Heme positive stool, Dizziness Discharge Plan Visit Data *Final* Discharge Date/Time: 01/31/19 14:32 Chief Complaint: Rectal Bleed Stated Complaint: RECTAL BLEED ED Provider: Bossman Ruth Discharge Problem: GI bleed, Heme positive stool, Dizziness Patient Disposition: Admitted As Inpatient Discharge Instructions Interventions: ED Discharge Assessment Last Done: 01/31/19 14:32 Discharge Problem: GI bleed Qualifiers: GI bleed type/associated pathology: unspecified gastrointestinal hemorrhage type Qualified Code(s): K92.2 - Gastrointestinal hemorrhage, unspecified The scribe's documentation has been prepared under my direction and personally reviewed by me in its entirety. I confirm that the note above accurately reflects all work, treatment, procedures, and medical decision making performed by me.
[2019-01-31 12:29] LABS: Basophils # (auto) 0.02 K/uL (0-0.2); Basophils % (auto) 0.2 %; Eosinophils # (auto) 0.16 K/uL (0-0.5); Eosinophils % (auto) 1.8 %; Hematocrit (blood only) 43.1 % (37-47); Hemoglobin 15.7 g/dL (12.0-16.0); Immature Granulocytes # (auto) 0.02 K/uL (0.00-0.02); Immature Granulocytes % (auto) 0.2 %; Lymphocytes # (auto) 2.02 K/uL (1.2-3.4); Lymphocytes % (auto) 23.3 %; Mean Corpuscular Hgb Conc 36.4 g/dL (32-36); Mean Corpuscular Volume 91.3 fL (80-100); Mean Platelet Volume 9.7 fL (7.4-10.4); Monocytes # (auto) 0.78 K/uL (0.11-0.59); Neutrophils # (auto) 5.68 K/uL (1.4-6.5); Neutrophils % (auto) 65.5 %; Platelet Count 135 K/uL (130-400); RDW Coefficient of Variation 12.5 % (11.5-14.5); RDW Standard Deviation 42.2 fL (36.4-46.3); Red Blood Count 4.72 M/uL (4.2-5.4); White Blood Count 8.68 K/uL (4.8-10.8)
--- NOTE | 2019-01-31 12:34 | XRay Report ---
XR chest 1V portable HISTORY: 83 years-old Female epig pain acute epigastric abdominal pain COMPARISON: CT abdomen and pelvis 09/13/2017, chest radiograph 03/10/2014 TECHNIQUE: Portable AP view of the chest FINDINGS: Cardiomediastinal and hilar silhouettes are within normal limits. No pneumothorax, large pleural effu renea, overt pulmonary edema or focal airspace consolidation. Chronic blunting of the left costophreni c angle is likely secondary to atelectasis/scarring. Degenerative changes of the shoulders and spine. Cholecystectomy. IMPRESSION: No acute process. The above report was generated using voice recognition software. It may contain grammatical, syntax o r spelling errors. Electronically signed by: Gavin Figueroa M.D. 01/31/2019 12:32 PM
[2019-01-31 12:48] LABS: Alanine Aminotransferase 30 U/L (12-78); Albumin Globulin Ratio 1.1 (0.9-2); Aspartate Aminotransferase 18 U/L (15-37); BUN Creatinine Ratio 11.7 (10-20); Bilirubin,Total 0.6 mg/dl (0.2-1); Blood Urea Nitrogen 13 mg/dl (7-18); Calcium 9.6 mg/dl (8.5-10.1); Carbon Dioxide 28 mmol/L (21-32); Chloride 105 mmol/L (98-107); Creatinine Clr Calc Pharmacy 33.4 ml/min; Est GFR (African American) 52.2; Est GFR (Non-African American) 45.1; Globulin 3.7 gm/dl (2.5-4.0); Glucose 85 mg/dl (70-99); Magnesium 2.3 mg/dl (1.8-2.4); Potassium 4.2 mmol/L (3.5-5.1); Sodium 138 mmol/L (136-145); Total Protein 7.7 gm/dl (6.4-8.2)
[2019-01-31 12:50] LABS: Alkaline Phosphatase 47 U/L (45-117); Troponin I < 0.015 ng/ml (0-0.045)
[2019-01-31] MEDS: PANTOprazole 40 MG in DEXTROSE 5% 100 ML IV SCH ×3 (13:06→23:10)
--- NOTE | 2019-01-31 14:08 | History & Physical Report ---
Date of Service January 31, 2019 Assessment & Plan (1) Gastritis: (2) Epigastric abdominal pain: Pt is 83 y/o F with PMH erosive gastritis in 06/2018 presented to ER with complaint of epigastric pain during middle of night x 1 week. Has not been taking Protonix at home. Takes ASA 81mg at bedtime. Reported dark brown loose stools today. Hemoccult positive stool reported at urgent care today. Suspect gastritis -In ER pt afebrile, P: 66, R: 20, BP: 127/66, 97% on RA. No leukocytosis, H/H: 15.7/43, Plt: 135, BUN: 13, Cr: 1.12, GFR: 45, negative troponin, Normal lipase, LFTs WNL -In ER given Protonix bolus and drip, Pepcid 20mg IV, 500ml NSS. -Hold ASA -Continue Protonix -IVF -Clear liquids per GI -Type and cross and hold PRBCs in case of clinical worsening -GI consult -CBC, BMP in am (3) Diabetes: DM II A1C: 6.3 on 10/22/18 -Hold metformin -Basal bolus insulin per protocol (4) Hypertension: Stable -Hold quinapril, spironolactone -Amlodipine, metoprolol with holding parameters (5) Hyperlipemia: -Continue rosuvastatin (6) Asthma: -Continue Singulair, Continue albuterol prn DVT Prophylaxis -SCDs for now Full Code as per discussion with pt Follows with Dr Mavis Acevedo for routine care Pt was seen and care coordinated with Dr Bocanegra. See addendum History of Present Illness Chief Complaint: Epigastric discomfort Primary Care Provider: Mavis Acevedo DO Pt is 83 y/o F with PMH HTN, dyslipidemia, DM II, asthma, obesity, h/o GI bleed with erosive gastritis presented to ER with complaint of epigastric pain x1 week. Patient states goes to bed around 9:00 and then wakes up around 3 AM with epigastric pain and sometimes left upper quadrant discomfort. She reports improvement of pain when going out and sitting up in her recliner chair. Patient denies noting any pain during the day and denies any increased pain after eating. Patient takes a baby aspirin every evening at 9 PM. Denies any other NSAID use. Drinks 1 to 2 cups decaffeinated green tea daily. Past 2 days has been taking Protonix daily. This morning had 5 episodes of loose stool which she described as "chocolate milk" in consistency. Last ate oatmeal at around 7am today, nothing since. Denies noticing any melena or bright red blood. Patient was seen at urgent care today and had reported heme positive stool and was referred to ER. Patient with history of hospitalization at [facility] 06/2018 for gastroenteritis, GI bleed, found to have erosive gastritis that secondary to NSAID use. Reported colonoscopy with small polyp that was removed, diverticulosis, internal hemorrhoids. She was discharged on Protonix twice daily (Could not locate actual scope reports). Patient followed up with [facility] in 09/2018 and it was recommended for patient to be taking Protonix 40 mg daily. Patient however has not been taking any Protonix for several months as she reports she mixed up her medications and misunderstood that she should be taking this. Denies any ETOH use, tobacco use. Denies recent antibiotic use. Patient reports chronic dizziness with standing too fast which has been going on for years. Denies any increased dizziness, denies any syncope. Patient with history shingles to right flank in 09/2018 and was treated with Valtrex and pain medication. Denies fever/chills, diaphoresis, N/V, indigestion, LIN, vision changes, neck pain, CP, SOB, orthopnea, palpitations, cough, sore throat, choking, otalgia, rhinorrhea, paresthesias, weakness, extremity weakness, extremity edema, rashes, urinary symptoms. Allergies Allergy/AdvReac Type Severity Reaction Status Date / Time hydrochlorothiazide Allergy Unknown unknown Unverified 01/31/19 12:21 Home Medications Home Medications Medication Instructions Recorded Confirmed Type amlodipine 10 mg PO QAM 09/13/18 01/31/19 History calcium carbonate [Tums] 400 mg PO BIDM 09/13/18 01/31/19 History cholecalciferol (vitamin D3) 2,000 unit PO HS 09/13/18 01/31/19 History [Vitamin D3] metformin 500 mg PO HS 09/13/18 01/31/19 History metoprolol succinate 50 mg PO QAM 09/13/18 01/31/19 History montelukast 10 mg PO QAM 09/13/18 01/31/19 History quinapril 20 mg PO BID 09/13/18 01/31/19 History spironolactone 25 mg PO QAM 09/13/18 01/31/19 History pantoprazole 40 mg PO QAM 09/19/18 01/31/19 History rosuvastatin 20 mg PO HS 09/19/18 01/31/19 History acetaminophen [Tylenol Extra 500 mg PO Q6H PRN 01/31/19 01/31/19 History Strength] albuterol sulfate [ProAir HFA] 2 puff INHALATION QID PRN 01/31/19 01/31/19 History aspirin 81 mg PO DAILY 01/31/19 01/31/19 History insulin glargine [Basaglar KwikPen 10 unit SUBCUT QAM 01/31/19 01/31/19 History U-100 Insulin] Past Med/Surg History Family History Other Coronary heart disease Diabetes Hypertension Social History Preferred Language: Yoruba Communication Ability: Effective Beliefs That Will Affect Care: None marital status: Current Living Situation: Spouse current occupational status: retired Other Information That Helps Us Care for You: No Feels Safe at Home: Yes Safety Concerns: Feels Safe At This Time Smoking Status: Never smoker Hx Alcohol Use: No Hx Substance Use: No Review of Systems Review of Systems: All systems reviewed & are unremarkable except as noted in HPI & below Physical Exam Physical Exam: General: no acute distress, obese Head: normocephalic, atraumatic Eyes: PERRL, EOM's intact, conjunctiva non-injected, anicteric ENT: normal inspection external ears, nose, mucous membranes moist Neck: supple, trachea midline Lungs: clear, no respiratory distress, no wheezing/rhonchi/rales CV: RRR, no murmur, no pretibial edema Abd: normal BS, soft, protuberant, mild tenderness to epigastric region without rebound or guarding Ext: no cyanosis, no calf tenderness Neuro: A&O x 3, no focal deficits noted, normal affect Skin: warm, dry Results & Data Vital Signs (Past 12 Hours) Vital Signs Temp Pulse Pulse Resp BP BP Pulse Ox 01/31/19 13:23 55 L 20 133/58 L 97 01/31/19 12:20 97 01/31/19 11:49 36.7 C 66 20 127/66 97 Laboratory Results Short CBC 01/31/19 Range/Units 12:17 WBC 8.68 (4.8-10.8) K/uL Hgb 15.7 (12.0-16.0) g/dL Hct 43.1 (37-47) % Plt Count 135 (130-400) K/uL BMP 01/31/19 12:17 Sodium 138 Potassium 4.2 Chloride 105 Carbon Dioxide 28 BUN 13 Creatinine 1.12 Glucose 85 Calcium 9.6 Cardiac Enzymes 01/31/19 Range/Units 12:17 Troponin I < 0.015 (0-0.045) ng/ml Liver Function 01/31/19 Range/Units 12:17 Total Bilirubin 0.6 (0.2-1) mg/dl AST 18 (15-37) U/L ALT 30 (12-78) U/L Alkaline Phosphatase 47 (45-117) U/L Albumin 4.0 (3.4-5.0) gm/dl Diagnostic Findings CXR: IMPRESSION: No acute process. ECG Rate (beats per minute): 59 Rhythm: sinus bradycardia Additional Comments: sinus arrhythmia Code Status & VTE Plan VTE Prophylaxis Plan VTE Prophylaxis will be ordered: Yes Supervising Physician Co-Signing Physician Notes I have seen and examined the patient and have discussed the case with the provider above. I agree with the assessment and plan as stated with the following exceptions. 83 yo F with h/o gastritis who has been noncompliant with protonix despite avoiding NSAIDs and restricting her diet presents for persistent epigastric pain with radiation to the LUQ area. However, she does take baby aspirin just prior to sleep. 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 She denies any tia hematochezia or hematemesis but was seen at Urgent care recently with FOBT positive. She reports 5 episodes of brownish loose stool this morning, and denies eating anything out of the ordinary. She does not appear acutely infected and reports no relationship to food. She has no anemia and is hemodynamically stable and afebrile. She is in no acute distress with some minor epigastric pain to palpation on exam. Abdomen is soft, and nondistended. Heart and lung exams are normal. Mucous membranes are moist. Skin is warm and dry without jaundice. NPO for now but GI ok with clear liquids. 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 Agree with plan above including holding ASA, protonix drip, trend H/H, GI consult. Treat pain as needed, but denies any abdominal pain now. Restart protonix PO at discharge with h/o gastritis. Cont Toprol XL despite concerns for UGIB as there doesn't appear to be a brisk bleed. Cont with clears for now. Follow clinical progress with respect to bleeding, abdominal pain, and diarrhea. Pt notes that lightheadedness with changing position is a chronic issue. PT/OT consult to ensure safety at home. DO Daljit
--- NOTE | 2019-01-31 14:54 | Gastrointestinal Consultation ---
Date of Consultation January 31, 2019 Assessment & Plan (1) Epigastric abdominal pain: Ms. Hendricks is an 83 yr old female with epigastric pain. She had an occult positive stool but no gross GI bleed. Hb and BUN remain normal. It is unlikely that she has a significant GI bleed. Regarding the cause of her pain, likely gastritis (on ASA but was not taking a previously prescribed PPI). 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 1. CT abd/pelvis with IV, oral contrast. 2. Would allow a clear liquid diet. 3. Unlikely to recommend repeat endoscopy as it was w/o significant abnormalities earlier this year, though would consider if unrelenting epigastric pain, if drop in Hb or if gross GI bleeding occurs during hospitalization. 4. Will continue to follow. Present on Admission?: Yes Supervising Physician Co-Signing Physician Notes On 01/31/19, I performed a history and physical examination of this patient and reviewed the electronic medical record. Specifically, on physical examination there is mild epigastric tenderness. I have discussed the case with NIKOLAI Blanco. The above note reflects my findings, conclusions, and recommendations. Jonn Neville MD History of Present Illness Reason for Consultation: Epigastric pain, occult positive stool Requesting Physician: Derek Kim PA-C Attending Physician: [facility] History of Present Illness Ms. Miguelangel Hendricks is an 83 yr old female pt of Dr. Jorge Acevedo with a hx of PMH HTN, dyslipidemia, DM II, asthma, obesity, h/o GI bleed with erosive gastritis presented to ER with complaint of epigastric pain x about 5 days. She wakes up in the middle of every night and notices epigastric pain which then keeps her awake. A stool test was (+) for occult bleed today but pt denies any gross GI bleeding. 1 week. At home, she is maintained on a daily PPI. She is on ASA 81 mg daily, and denies any other NSAIDs use. She underwent endoscopy (see below) and was prescribed pantoprazole daily for gastritis, but had stopped taking it a few months ago and restarted a few days ago. Restarting the pantoprazole has not helped the pain. She also takes TUMs daily but hadn't taken it during the pain so is unsure if it improves her pain. Pt reports having undergone EGD and colonscopy at [place] early this year. A review of [facility] records from Dr. Neville's office visit with the patient show: "She was hospitalized at [place] for gastroenteritis on 07/11/18 with a GI bleed and found to have erosive gastritis attributed to NSAID use. Colonoscopy showed a small polyp (removed), diverticulosis and internal hemorrhoids. She was discharged on PPI. Non-contrast CT in [place] in 06/2018 and 08/2018 did not show pancreatic cyst." On arrival, Hb 15, BUN 13. LFTs and lipase are normal. On exam, she is awake, alert, oriented. She rates her epigastric pain as a 5 and also reports that she had some diarrhea yesterday (loose brown). Allergies Allergy/AdvReac Type Severity Reaction Status Date / Time hydrochlorothiazide Allergy Unknown unknown Unverified 01/31/19 12:21 Home Medications Home Medications Medication Instructions Recorded Confirmed Type amlodipine 10 mg PO QAM 09/13/18 01/31/19 History calcium carbonate [Tums] 400 mg PO BIDM 09/13/18 01/31/19 History cholecalciferol (vitamin D3) 2,000 unit PO HS 09/13/18 01/31/19 History [Vitamin D3] metformin 500 mg PO HS 09/13/18 01/31/19 History metoprolol succinate 50 mg PO QAM 09/13/18 01/31/19 History montelukast 10 mg PO QAM 09/13/18 01/31/19 History quinapril 20 mg PO BID 09/13/18 01/31/19 History spironolactone 25 mg PO QAM 09/13/18 01/31/19 History pantoprazole 40 mg PO QAM 09/19/18 01/31/19 History rosuvastatin 20 mg PO HS 09/19/18 01/31/19 History acetaminophen [Tylenol Extra 500 mg PO Q6H PRN 01/31/19 01/31/19 History Strength] albuterol sulfate [ProAir HFA] 2 puff INHALATION QID PRN 01/31/19 01/31/19 Hist ory aspirin 81 mg PO DAILY 01/31/19 01/31/19 History insulin glargine [Marcieaglkrupa QuintanaPen 10 unit SUBCUT QAM 01/31/19 01/31/19 History U-100 Insulin] Patient History Medical History Obesity (Chronic) Hypertension (Chronic) Diabetes (Chronic) Hyperlipemia (Chronic) Asthma (Chronic) Osteoarthritis (Chronic) Heart disease (Chronic) Surgical History History of cardiac cath (Chronic) 05/2009, 08/2013; no stents placed History of hysterectomy (Chronic) History of appendectomy (Chronic) History of cholecystectomy (Chronic) History of thyroidectomy (Chronic) partial removal thyroid lobe. 02/11/2011 Family History Other Coronary heart disease Diabetes Hypertension Social History Preferred Language: Mongolian Communication Ability: Effective Beliefs That Will Affect Care: None marital status: Current Living Situation: Spouse current occupational status: retired Other Information That Helps Us Care for You: No Feels Safe at Home: Yes Safety Concerns: Feels Safe At This Time Smoking Status: Never smoker Hx Alcohol Use: No Hx Substance Use: No Review of Systems Review of Systems: ROS: Gen: Denies weakness, fevers, weight loss Eyes: No eye redness, or pain, no recent vision changes Resp: No SOB, no cough Cardio: No palpitations/irregular beats, no chest pain GI: + epigastric/lower chest abdominal pain, diarrhea x 1 day, no nausea/vomiting : Denies pain on urination Skin: No jaundice, itching or new rashes Physical Exam Constitutional: WD/WN, vitals as above Eyes: PERRL, conjunctivae normal, anicteric sclerae ENMT: external ear and nose normal, oropharynx normal Neck: trachea midline, no thyromegaly Respiratory: normal respiratory effort, lungs clear to auscultation Cardiovascular: RRR, no murmur, no edema Gastrointestinal (Abdomen): Inspection/Auscultation: abdomen normal to inspection; abdomen not distended Percussion/Palpation: + abdomen tender (mild epigastric tenderness) and abdomen soft Musculoskeletal: no cyanosis or clubbing, extremities motor strength 5/5 Skin: no rashes, warm and dry Neurologic: PERRL, EOMI, accommodation nl, no face palsy, no dysarthria Psychiatric: A+Ox3, euthymic affect Lymphatic: no cervical or axillary lymphadenopathy Results & Data Vital Signs (Past 12 Hours) Vital Signs Temp Pulse Pulse Resp BP BP Pulse Ox 01/31/19 14:31 36.6 C 56 L 18 133/69 99 01/31/19 13:23 55 L 20 133/58 L 97 01/31/19 12:20 97 01/31/19 11:49 36.7 C 66 20 127/66 97
[2019-01-31] MEDS ORDERED: GLUCAGON FOR INJ 1 MG VIAL SQ PRN (15:02)
[2019-01-31] MEDS ORDERED: DEXTROSE 50% 50 ML SYRINGE IV PRN (15:02)
[2019-01-31] MEDS ORDERED: ONDANSETRON INJ 2 MG/ML 2 ML VIAL IV PRN (15:02)
[2019-01-31] MEDS ORDERED: GLUCOSE 40% GEL 15 GM TUBE PO PRN (15:02)
[2019-01-31] MEDS ORDERED: GLUCOSE 10 TABS/TUBE PO PRN (15:02)
[2019-01-31] MEDS ORDERED: CARBOHYDRATES FOR HYPOGLYCEMIA PO PRN (15:02)
[2019-01-31] MEDS ORDERED: ACETAMINOPHEN 325 MG TAB PO PRN (15:02)
[2019-01-31] MEDS ORDERED: ALBUTEROL HFA 8 GM INHALER INH PRN (15:02)
[2019-01-31] MEDS ORDERED: SODIUM CHLORIDE 0.9% 250 ML IV PRN (15:02)
[2019-01-31] MEDS: SODIUM CHLORIDE 0.9% 1000ML 1,000 ML IV SCH (15:46)
[2019-01-31] MEDS ORDERED: IOVERSOL 100ml IV PRN (16:53)
--- NOTE | 2019-01-31 17:02 | CT Scan Report ---
CT SCAN OF THE ABDOMEN WITH IV CONTRAST CLINICAL HISTORY: Epigastric abdominal pain. COMPARISON STUDY: Abdominal CT dated 09/13/2018 and 09/03/2016. TECHNIQUE: Following the IV administration of 90 cc of Optiray 320, CT scan of the abdomen is perfor med from the lung bases to the pelvic inlet. Images are reviewed in the axial, sagittal, and coronal planes. IV contrast was administered without complication. Oral contrast was utilized. A dose lowerin g technique was utilized adhering to the principles of ALARA. CT DOSE: 505.96 mGy.cm FINDINGS: Lung bases: The heart is normal in size and without pericardial effusion. The aortic valve leaflets a re densely calcified. The lung bases are clear noting bibasilar scarring/atelectasis. There is a tiny hiatal hernia. Liver: The contrast-enhanced liver is normal in size, contour, and attenuation. There is mild central intrahepatic biliary ductal dilatation. The hepatic veins and portal veins are patent. Hepatic cysts measure up to 2.3 cm. Additional subcentimeter hepatic hypodensities also likely represent cysts but are too small for definitive characterization. Gallbladder: Surgically absent noting clips in the gallbladder fossa. Spleen: Normal in size and attenuation. Pancreas: There is moderate glandular atrophy of the pancreas. 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 Adrenal glands: Unremarkable. Kidneys: The contrast enhanced kidneys demonstrate cortical atrophy and are without hydronephrosis. T he kidneys enhance symmetrically. Renal cysts measure up to 3.1 cm. Additional subcentimeter cortical hypodensities also likely represent cysts but are too small for definitive characterization. Abdominal vasculature: The abdominal aorta is normal in course and caliber noting mild atheroscleroti c calcification. Bowel: Visualized portions of the small bowel and colon are normal in caliber. There is no evidence o f obstruction. Enteric contrast reaches the distal small bowel. Peritoneum: There is no intraperitoneal free air or abdominal ascites. Lymphadenopathy: None. Skeletal structures: The skeletal structures are osteopenic. There is moderate lumbosacral spondylosi s. No lytic or blastic lesions are seen. IMPRESSION: 1. There are no acute infectious or inflammatory findings in the abdomen or pelvis. 2. Additional findings as above. Electronically signed by: Bossman Henao M.D. 01/31/2019 5:00 PM
[2019-01-31] MEDS ORDERED: INSULIN ASPART 100 UNITS/ML 3 ML PEN SC SCH (18:00)
[2019-01-31 19:49] LABS: Appearance Urine Clear (Clear); Bilirubin Urine Negative (Negative); Blood Urine Negative (Negative); Color Urine Yellow; Glucose Urine UA Negative (Negative); Ketones Urine Negative (Negative); Leukocyte Esterase Urine 1+ (Negative); Nitrite Urine Negative (Negative); Protein Urine Negative (Negative); Specific Gravity Urine 1.027 (1.000-1.030); Urobilinogen Urine Negative (Negative)
[2019-01-31 20:28] LABS: Bacteria Urine Automated Negative (Negative); Cast Urine Automated 0 /lpf (0-5); Epithelial Cell Urine Auto 0-5 /lpf (0-5); RBC Urine Automated 0-4 /hpf (0-4)
[2019-01-31] MEDS: INSULIN GLARGINE SOLOSTAR 100 UNITS/ML 3 ML PEN SC SCH (20:46)
[2019-01-31] MEDS ORDERED: ROSUVASTATIN CALCIUM 20 MG TAB PO SCH (21:00)
[2019-01-31] MEDS ORDERED: Nursing to Pharmacy Communication ONE (21:48)
[2019-02-01] MEDS: PANTOprazole 40 MG in DEXTROSE 5% 100 ML IV SCH ×2 (03:50→08:20)
[2019-02-01] MEDS: SODIUM CHLORIDE 0.9% 1000ML 1,000 ML IV SCH (03:50)
[2019-02-01 06:06] LABS: Hematocrit (blood only) 38.9 % (37-47); Hemoglobin 13.6 g/dL (12.0-16.0); Mean Platelet Volume 9.8 fL (7.4-10.4); Platelet Count 116 K/uL (130-400); RDW Coefficient of Variation 12.7 % (11.5-14.5); RDW Standard Deviation 42.7 fL (36.4-46.3); Red Blood Count 4.23 M/uL (4.2-5.4); White Blood Count 4.77 K/uL (4.8-10.8)
[2019-02-01 06:42] LABS: BUN Creatinine Ratio 10.3 (10-20); Calcium 8.2 mg/dl (8.5-10.1); Creatinine Clr Calc Pharmacy 41.9 ml/min; Est GFR (Non-African American) 59.5; Potassium 4.2 mmol/L (3.5-5.1)
--- NOTE | 2019-02-01 08:17 | Hospitalist Progress Note ---
Date of Service February 01, 2019 Assessment & Plan (1) Gastritis: (2) Epigastric abdominal pain: Pt is 83 y/o F with PMH of erosive gastritis in 06/2018 presented to ER with complaint of epigastric pain during middle of night x 1 week. Has not been taking Protonix at home since her meds got mixed up after a shingles attack. Takes ASA 81mg at bedtime. Reported dark brown loose stools . Hemoccult positive stool reported at urgent care on day of admission Likely gastritis, uncontrolled with not taking her protonix for few months. No overt GI bleeding. Hb on presentation - 15.7. No episodes of GI bleed or melena while in hospital, HB today is 13.6 -Received IV Protonix bolus and drip, Pepcid 20 mg IV in ED -H & H - stable with no episodes of active GI bleed -Hold Aspirin for now. Re-started on Protonix p.o. daily-explained importance of taking this medication on a regular basis GI inputs appreciatedunlikely to recommend repeat endoscopy as it was without significant abnormalities earlier this year and no overt GI bleeding. Cleared for discharge. -Work up- LFTs- normal, CT abd/pelvis-no acute infectious or inflammatory findings in abdomen/pelvis. 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 Unchanged dating back to 2017. Per discussion with GI, recommends repeat CT abdomen in 2 years to monitor progress of pancreatic cyst. (4) Diabetes: DM II A1C: 6.3 on 10/22/18 -Hold metformin -Basal bolus insulin per protocol (5) Hypertension: Stable -Hold quinapril, spironolactone--> OK to restart. -Amlodipine, metoprolol with holding parameters (6) Hyperlipemia: -Continue rosuvastatin (7) Asthma: -Continue Singulair, Continue albuterol prn DVT Prophylaxis -SCDs for now Disposition Observation status Okay to discharge home if tolerates p.o. and continues to be medically stable. Lives at home with . Full Code as per discussion with pt Follows with Dr Mavis Acevedo for routine care Subjective Patient is feeling better. Epigastric pain has improved. No nausea, vomiting. No burning sensation. No fever, chills, chest pain, shortness of breath. No bowel movement since admission Tolerating clear liquids. Physical Exam Physical Exam: GENERAL- AAOX3, No acute distress LUNGS- Air entry bilaterally equal. No rales, rhonchi, crackles, wheezes heard. HEART- Regular rate and rhythm. No murmurs ABDOMEN- Soft, non tender, non distended, Bowel sounds heard. EXTREMITIES- Good peripheral pulses, no edema Results & Data Vital Signs (Past 12 Hours) Vital Signs Temp Pulse Pulse Resp BP Pulse Ox 02/01/19 07:03 36.6 C 56 L 18 135/71 99 02/01/19 03:56 36.4 C L 68 18 148/73 H 95 02/01/19 00:36 52 L 02/01/19 00:00 36.4 C L 62 18 151/82 H 96
[2019-02-01] MEDS: INSULIN GLARGINE SOLOSTAR 100 UNITS/ML 3 ML PEN SC SCH (08:19)
[2019-02-01] MEDS: INSULIN ASPART 100 UNITS/ML 3 ML PEN SC SCH ×2 (08:20→12:20)
[2019-02-01] MEDS ORDERED: MONTELUKAST SODIUM 10 MG TABLET PO SCH (09:00)
[2019-02-01] MEDS ORDERED: AMLODIPINE BESYLATE 5 MG TAB PO SCH (09:00)
[2019-02-01] MEDS ORDERED: METOPROLOL SUCC 50MG EXT REL TAB PO SCH (09:00)
--- NOTE | 2019-02-01 11:25 | Gastroenterology Progress Note ---
Date of Service February 01, 2019 Assessment & Plan (1) Epigastric abdominal pain: Ms. Hendricks is an 83 yr old female with epigastric pain w/o evidence of significant GI bleeding (no gross GI bleeding and no drop in Hb or increase in BUN). Hb and BUN remain normal. Regarding the cause of her pain, likely gastritis (on ASA but was not taking a previously prescribed PPI), migratory nature also suggests possible IBS. 1. Advance to regular diet (no plans for endoscopy as she underwent EGD, colon at [place] in Jun 2018). 2. No GI contraindication to discharge. 3. Recommend OP daily po PPI. 4. GI will sign off. Supervising Physician Co-Signing Physician Notes I have performed a history and physical examination of this patient and reviewed the electronic medical record. Specifically, on physical examination there is no significant abdominal tenderness. I have discussed the case with NIKOLAI Blanco. The above note reflects my findings, conclusions, and recommendations. Jonn Neville MD Subjective Ms. Hendricks is an 83 yr old female with obesity, HTN, DM, post distant cholecystectomy. Admitted yesterday for epigastric pain. Normal LFTs, lipase. CT with IV contrast w/o abnormalities. Patient's epigastric pain "better," though does c/o lower abdomen discomfort today. No nausea, vomiting. One loose brown BM this morning. Tolerating clear liquids po. Review of Systems Review of Systems: ROS: Gen: Denies weakness, fevers, weight loss Eyes: No eye redness, or pain, no recent vision changes Resp: No SOB, no cough Cardio: No palpitations/irregular beats, no chest pain GI: + epigastric/lower chest abdominal pain, diarrhea x 1 day, no nausea/vomiting : Denies pain on urination Skin: No jaundice, itching or new rashes Physical Exam Constitutional: WD/WN, vitals as above Eyes: PERRL, conjunctivae normal, anicteric sclerae ENMT: external ear and nose normal, oropharynx normal Neck: trachea midline, no thyromegaly Respiratory: normal respiratory effort, lungs clear to auscultation Cardiovascular: RRR, no murmur, no edema Gastrointestinal (Abdomen): Inspection/Auscultation: abdomen normal to inspection; abdomen not distended Percussion/Palpation: + abdomen tender (mild RLQ tendernss; no epigastric tenderness this morning) and abdomen soft Musculoskeletal: no cyanosis or clubbing, extremities motor strength 5/5 Skin: no rashes, warm and dry Neurologic: PERRL, EOMI, accommodation nl, no face palsy, no dysarthria Psychiatric: A+Ox3, euthymic affect Lymphatic: no cervical or axillary lymphadenopathy Results & Data Vital Signs (Past 12 Hours) Vital Signs Temp Pulse Pulse Resp BP Pulse Ox 02/01/19 09:00 60 02/01/19 07:03 36.6 C 56 L 18 135/71 99 02/01/19 03:56 36.4 C L 68 18 148/73 H 95 02/01/19 00:36 52 L 02/01/19 00:00 36.4 C L 62 18 151/82 H 96
--- NOTE | 2019-02-01 12:57 | Discharge Summary ---
Date of Service February 01, 2019 Admission HPI Per Admitting Provider Pt is 83 y/o F with PMH HTN, dyslipidemia, DM II, asthma, obesity, h/o GI bleed with erosive gastritis presented to ER with complaint of epigastric pain x1 week. Patient states goes to bed around 9:00 and then wakes up around 3 AM with epigastric pain and sometimes left upper quadrant discomfort. She reports improvement of pain when going out and sitting up in her recliner chair. Patient denies noting any pain during the day and denies any increased pain after eating. Patient takes a baby aspirin every evening at 9 PM. Denies any other NSAID use. Drinks 1 to 2 cups decaffeinated green tea daily. Past 2 days has been taking Protonix daily. This morning had 5 episodes of loose stool which she described as "chocolate milk" in consistency. Last ate oatmeal at around 7am today, nothing since. Denies noticing any melena or bright red blood. Patient was seen at urgent care today and had reported heme positive stool and was referred to ER. Patient with history of hospitalization at [facility] 06/2018 for gastroenteritis, GI bleed, found to have erosive gastritis that secondary to NSAID use. Reported colonoscopy with small polyp that was removed, diverticulosis, internal hemorrhoids. She was discharged on Protonix twice daily (Could not locate actual scope reports). Patient followed up with [facility] in 09/2018 and it was recommended for patient to be taking Protonix 40 mg daily. Patient however has not been taking any Protonix for several months as she reports she mixed up her medications and misunderstood that she should be taking this. Denies any ETOH use, tobacco use. Denies recent antibiotic use. Patient reports chronic dizziness with standing too fast which has been going on for years. Denies any increased dizziness, denies any syncope. Patient with history shingles to right flank in 09/2018 and was treated with Valtrex and pain medication. Denies fever/chills, diaphoresis, N/V, indigestion, LIN, vision changes, neck pain, CP, SOB, orthopnea, palpitations, cough, sore throat, choking, otalgia, rhinorrhea, paresthesias, weakness, extremity weakness, extremity edema, rashes, urinary symptoms. Principal Diagnosis 1. Gastritis 2. FOBT positive, likely secondary to above Secondary diagnoses on discharge 1. Pancreatic cyst, 8 mm 2. Diabetes mellitus type 2 3. Hypertension 4. Hyperlipidemia 5. Asthma Discharge Exam GENERAL- AAOX3, No acute distress LUNGS- Air entry bilaterally equal. No rales, rhonchi, crackles, wheezes heard. HEART- Regular rate and rhythm. No murmurs ABDOMEN- Soft, non tender, non distended, Bowel sounds heard. EXTREMITIES- Good peripheral pulses, no edema Discharge Data Allergies Allergy/AdvReac Type Severity Reaction Status Date / Time hydrochlorothiazide Allergy Unknown unknown Unverified 01/31/19 12:21 Consultations 01/31/19 13:20 ED Decision to Admit Stat 01/31/19 15:02 Consult Case Management - Discharge Planning Routine Consult Gastroenterology Routine Ordered Studies 01/31/19 15:13 CT abdomen oral and IV con Routine Hospital Course (1) Gastritis: (2) Epigastric abdominal pain: Pt is 83 y/o F with PMH of erosive gastritis in 06/2018 presented to ER with complaint of epigastric pain during middle of night x 1 week. Has not been taking Protonix at home since her meds got mixed up after a shingles attack. Takes ASA 81mg at bedtime. Reported dark brown loose stools . Hemoccult positive stool reported at urgent care on day of admission Likely gastritis, uncontrolled with not taking her protonix for few months. No overt GI bleeding. Hb on presentation - 15.7. No episodes of GI bleed or melena while in hospital, HB today is 13.6 -Received IV Protonix bolus and drip, Pepcid 20 mg IV . -H & H - stable with no episodes of active GI bleed -Hold Aspirin for now. If no episodes of tia bleeding or melena, ok to restart during next office appt Re-started on Protonix p.o. daily-explained importance of taking this medication on a regular basis GI inputs appreciatedunlikely to recommend repeat endoscopy as it was without significant abnormalities earlier this year and no overt GI bleeding. Cleared for discharge. -Work up- LFTs- normal, CT abd/pelvis-no acute infectious or inflammatory findings in abdomen/pelvis. 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 Unchanged dating back to 2017. Per discussion with GI, recommends repeat CT abdomen in 2 years to monitor progress of pancreatic cyst. This was conveyed to patient and family as well (4) Diabetes: DM II A1C: 6.3 on 10/22/18 -Hold metformin -Basal bolus insulin per protocol (5) Hypertension: Stable -Hold quinapril, spironolactone--> OK to restart. -Amlodipine, metoprolol with holding parameters (6) Hyperlipemia: -Continue rosuvastatin (7) Asthma: -Continue Singulair, Continue albuterol prn DVT Prophylaxis -SCDs for now Disposition Observation status Okay to discharge home today Lives at home with . Updated son by bedside Full Code as per discussion with pt Follows with Dr Mavis Acevedo for routine care Total Time Total Time Spent Total Time Spent (In Minutes): 25 minutes Discharge Plan Discharge Items Patient Disposition: Home - Self-Care Reason For Visit: EPIGASTRIC DISCOMFORT Discharge Diagnosis: Epigastric pain likely secondary to gastritis Discharge Goals: Decrease discomfort Activity: Resume your previous activity Non-emergency contact: Primary Care Provider Call non-emergency contact if: your symptoms worsen Follow-up/Referrals: Mavis Acevedo, DO [Primary Care Provider] - 02/04/19 10:15 am Diet: Carb Consistent or DM2 and Low Sodium (2gm) Addtl Provider Instructions: You were admitted to the hospital for epigastric pain likely secondary to gastritis. Medication changes 1. Restart Protonix 40 mg p.o. daily which is your medication for gastritis. 2. Will hold aspirin until next follow-up appointment. If no episodes of dark tarry stools or fresh red blood in stools, okay to restart aspirin. Prescriptions: Continued metoprolol succinate 50 mg tablet extended release 24 hr 50 mg PO QAM RF: 0 spironolactone 25 mg tablet 25 mg PO QAM RF: 0 amlodipine 10 mg tablet 10 mg PO QAM RF: 0 calcium carbonate [Tums] 200 mg calcium (500 mg) Tablet,Chewable 400 mg PO BIDM RF: 0 montelukast 10 mg tablet 10 mg PO QAM RF: 0 quinapril 20 mg tablet 20 mg PO BID RF: 0 metformin 500 mg tablet extended release 24 hr 500 mg PO HS RF: 0 cholecalciferol (vitamin D3) [Vitamin D3] 2,000 unit Tablet 2,000 unit PO HS RF: 0 Basaglar KwikPen U-100 Insulin 100 unit/mL (3 mL) insulin pen 10 unit subcut QAM RF: 0 acetaminophen [Tylenol Extra Strength] 500 mg Tablet 500 mg PO Q6H PRN (Reason: Pain) RF: 0 albuterol sulfate [ProAir HFA] 90 mcg/actuation Hfa Aerosol Inhaler 2 puff inhalation QID PRN (Reason: Shortness Of Breath Or Wheezing) RF: 0 pantoprazole 40 mg tablet,delayed release (DR/EC) 40 mg PO QAM RF: 0 rosuvastatin 20 mg tablet 20 mg PO HS RF: 0 Discontinued aspirin 81 mg Tablet,Delayed Release (Dr/Ec) 81 mg PO DAILY RF: 0 Stand-Alone Forms: [employer] [facility]Other Patient Handouts: Gastritis, Gastritis Tx Discharge Orders: Discharge Order (Routine); Ordered 02/01/19 Ordered By: Karla Poole Admission Data Admit Date/Time: 01/31/19 14:00 Attending Provider: Karla Poole Admit Provider: Genesis Bocanegra Primary Care Provider: Mavis Acevedo Other Providers: Genesis Bocanegra ; Jonn Neville Service: Telemetry Medical
== END 2019-02-01 14:17 | disposition home or self-care (01) ==
LOC: 2N 11:46 → ED 11:46 → 2N 14:32
DX: Z79.899 Other long term (current) drug therapy; K86.2 Cyst of pancreas; J45.909 Unspecified asthma, uncomplicated; M19.90 Unspecified osteoarthritis, unspecified site; Z79.4 Long term (current) use of insulin; E11.9 Type 2 diabetes mellitus without complications; I10 Essential (primary) hypertension; R10.13 Epigastric pain; K29.71 Gastritis, unspecified, with bleeding; E78.5 Hyperlipidemia, unspecified

== ENCOUNTER 2019-06-12 07:41 | Observation (INO) ==
[2019-06-12 08:18] LABS: Basophils # (auto) 0.01 K/uL (0-0.2); Basophils % (auto) 0.2 %; Eosinophils % (auto) 1.7 %; Hematocrit (blood only) 47.6 % (37-47); Hemoglobin 16.4 g/dL (12.0-16.0); Immature Granulocytes # (auto) 0.01 K/uL (0.00-0.02); Immature Granulocytes % (auto) 0.2 %; Lymphocytes # (auto) 1.74 K/uL (1.2-3.4); Lymphocytes % (auto) 28.9 %; Mean Corpuscular Hemoglobin 31.9 pg (25-34); Mean Corpuscular Hgb Conc 34.5 g/dL (32-36); Mean Corpuscular Volume 92.6 fL (80-100); Mean Platelet Volume 10.2 fL (7.4-10.4); Monocytes # (auto) 0.86 K/uL (0.11-0.59); Monocytes % (auto) 14.3 %; Neutrophils # (auto) 3.31 K/uL (1.4-6.5); Neutrophils % (auto) 54.7 %; Platelet Count 134 K/uL (130-400); RDW Coefficient of Variation 12.9 % (11.5-14.5); RDW Standard Deviation 43.4 fL (36.4-46.3); Red Blood Count 5.14 M/uL (4.2-5.4); White Blood Count 6.03 K/uL (4.8-10.8)
[2019-06-12 08:26] LABS: Albumin Level 3.6 gm/dl (3.4-5.0); BUN Creatinine Ratio 18.7 (10-20); Calcium 9.3 mg/dl (8.5-10.1); Creatinine Clr Calc Pharmacy 30.7 ml/min; Est GFR (African American) 48.7; Potassium 4.3 mmol/L (3.5-5.1)
[2019-06-12 08:29] LABS: Albumin Globulin Ratio 0.9 (0.9-2); Bilirubin,Total 0.9 mg/dl (0.2-1); Globulin 4.1 gm/dl (2.5-4.0); INR 1.1 (0.9-1.1); Partial Thromboplastin Time 27.9 Seconds (21.0-31.0); Prothrombin Time 11.4 Seconds (9.0-12.0); Total Protein 7.7 gm/dl (6.4-8.2)
[2019-06-12] MEDS ORDERED: IOVERSOL 100ml IV PRN (08:56)
--- NOTE | 2019-06-12 09:29 | CT Scan Report ---
ABDOMEN AND PELVIS CT WITH IV CONTRAST CT DOSE: 875.33 mGy.cm HISTORY: Acute generalized abdominal pain with GI bleed diffuse abd pain w/ GI bleed TECHNIQUE: Multiaxial CT images of the abdomen and pelvis were performed following the IV administrat ion of 94 cc of Optiray 320, A dose lowering technique was utilized adhering to the principles of AL QUOC. COMPARISON STUDY: CT abdomen and pelvis 01/31/2019 FINDINGS: Clear lung bases. No pneumatosis or pneumoperitoneum. Aortic annular and coronary arterial calcificat ions are noted. Imaged inferior cardiac chambers are unremarkable. Cholecystectomy. Spleen and adrena l glands are unremarkable. There are multiple hepatic cysts noted within the right left hepatic lobes measuring up to 2.1 cm. There is mild intrahepatic biliary ductal dilation of the left hepatic lobe laterally which is unchanged. Cholecystectomy. Dilation of the extrahepatic common bile duct is likel y on a postsurgical basis. 10 x 9 mm cystic focus of the uncinate process pancreas is suggestive of a probable sidebranch IPMN. 3.5 cm cyst with mild marginal calcification involves the superior pole le ft kidney, unchanged. No renal calculi or hydronephrosis. Partial distention of the urinary bladder. Hysterectomy. Mixed plaque the abdominal aorta without aneurysm. No adenopathy. Mild nonspecific distal esophageal wall thickening. No bowel obstruction. Colonic diverticulosis with out acute diverticulitis. No bowel wall thickening, ascites or mesenteric stranding. Soft tissues are within normal limits. Degenerative changes of the spine, pelvis and hips. Anterolisthesis L4 on L5, likely secondary to long-standing facet arthrosis. IMPRESSION: 1. No acute intra-abdominal or intrapelvic abnormality identified. 2. Colonic diverticulosis without acute diverticulitis. 3. Prior cholecystectomy and hysterectomy. 4. Additional findings as above. ACT 112: Negative or not required by law. The above report was generated using voice recognition software. It may contain grammatical, syntax o r spelling errors. Electronically signed by: Gavin Figueroa M.D. 06/12/2019 9:28 AM
[2019-06-12] MEDS ORDERED: FAMOTIDINE 20MG/5ML IV PUSH IV STA (10:23)
[2019-06-12] MEDS ORDERED: SODIUM CHLORIDE 0.9% 1000ML 500 ML IV ONE (10:23)
[2019-06-12] MEDS ORDERED: ONDANSETRON 4 MG OD TAB PO PRN (10:54)
[2019-06-12] MEDS ORDERED: ONDANSETRON INJ 2 MG/ML 2 ML VIAL IV PRN (10:57)
[2019-06-12] MEDS ORDERED: ACETAMINOPHEN 325 MG TAB PO PRN (10:58)
--- NOTE | 2019-06-12 11:03 | History & Physical Report ---
Date of Service June 12, 2019 Assessment & Plan (1) Vomiting: Diarrhea Dehydration -This is a patient who had acute abdominal pain and associated vomiting x 10 episodes as per patient and also associated symptoms of loose stools and she saw blood in her stool. Patient's hemoglobin as 16 on admission with somewhat elevated creatinine suggestive of dehydration with lab imaging of diverticulosis. Patient denies history of irritable bowel disease but notes that 4 days ago she had similar symptoms and 5 days before that time she also had similar symptoms. At those times she reported that she thought it could have been associated with metformin use but she has not been taking metformin in last 2 days. Patient does not have abdomen pain currently in ED. no chest pain or palpitations of shortness of breath. no dizziness. no lightheadedness. family at bedside including and son Frederick [phone] -creatinine elevation to 1.18 and hemoglobin of 16 suggest dehydration -give IV fluids -IV anti-emetics prn Acute Kidney injury -IV fluids Blood per rectum -blood in stool with diarrhea unlikely to be from GI hemorrhage especially with hemoglobin of 16 -more likely from straining during defecation -will seek GI consult and repeat CBC and keep NPO after midnight but doubt any need for acute endoscopy or acute colonoscopy -FOBT and stool cultures ordered -give oral pantoprazole Type 2 diabetes mellitus with jail use of insulin -hold metformin -can continue Long acting insulin 9 units daily of long acting insulin -sliding scale aspart as needed Hypertension -continue home quinapril 20 mg daily as lisinopril 20 mg daily for now DVT ppx: SCDs Full Code son: Frederick [phone] History of Present Illness This is a patient who had acute abdominal pain and associated vomiting x 10 episodes as per patient and also associated symptoms of loose stools and she saw blood in her stool. Patient's hemoglobin as 16 on admission with somewhat elevated creatinine suggestive of dehydration with lab imaging of diverticulosis. Patient denies history of irritable bowel disease but notes that 4 days ago she had similar symptoms and 5 days before that time she also had similar symptoms. At those times she reported that she thought it could have been associated with metformin use but she has not been taking metformin in last 2 days. Patient does not have abdomen pain currently in ED. no chest pain or palpitations of shortness of breath. no dizziness. no lightheadedness. family at bedside including and son Frederick [phone] Allergies: patient reported to medical doctor that she does not have drug allergies or food allergies Family History: when asked about family history, patient denies any family history related to current abdominal situation and woul not further elaborate Primary Care Provider: Mavis Acevedo DO Allergies Allergy/AdvReac Type Severity Reaction Status Date / Time hydrochlorothiazide Allergy Unknown unknown Unverified 06/12/19 10:08 Home Medications Home Medications Medication Instructions Recorded Confirmed Type calcium carbonate [Tums] 400 mg PO BIDM 09/13/18 06/12/19 History cholecalciferol (vitamin D3) 2,000 unit PO HS 09/13/18 06/12/19 History [Vitamin D3] metformin 500 mg PO HS 09/13/18 06/12/19 History metoprolol succinate 50 mg PO QAM 09/13/18 06/12/19 History montelukast 10 mg PO QAM 09/13/18 06/12/19 History quinapril 20 mg PO QAM 09/13/18 06/12/19 History spironolactone 25 mg PO QAM 09/13/18 06/12/19 History pantoprazole 40 mg PO QAM 09/19/18 06/12/19 History rosuvastatin 20 mg PO HS 09/19/18 06/12/19 History Basaglar KwikPen U-100 Insulin 9 unit SUBCUT QAM 01/31/19 06/12/19 History acetaminophen [Tylenol Extra 500 mg PO Q6H PRN 01/31/19 06/12/19 History Strength] albuterol sulfate [ProAir HFA] 2 puff INHALATION QID PRN 01/31/19 06/12/19 History Past Med/Surg History Medical History Asthma (Chronic) Diabetes (Chronic) Heart disease (Chronic) Hyperlipemia (Chronic) Hypertension (Chronic) Obesity (Chronic) Osteoarthritis (Chronic) Surgical History History of appendectomy (Chronic) History of cardiac cath (Chronic) 05/2009, 08/2013; no stents placed History of cholecystectomy (Chronic) History of hysterectomy (Chronic) History of thyroidectomy (Chronic) partial removal thyroid lobe. 02/11/2011 Family History Other Coronary heart disease Diabetes Hypertension Social History Preferred Language: Bulgarian Communication Ability: Effective Beliefs That Will Affect Care: None marital status: Current Living Situation: Spouse current occupational status: retired Feels Safe at Home: Yes Smoking Status: Never smoker Hx Alcohol Use: No Hx Substance Use: No Review of Systems Review of Systems: All systems reviewed & are unremarkable except as noted in HPI & below Physical Exam Constitutional: comfortable Eyes: PERRL, conjunctivae normal, anicteric sclerae EOM intact bilaterally ENMT: external ear and nose normal, oropharynx normal Neck: normal visual inspection Respiratory: normal respiratory effort, lungs clear to auscultation Cardiovascular: Rate/Rhythm: regular rate and regular rhythm Gastrointestinal (Abdomen): normal bowel sounds, soft, nontender, no hepatosplenomegaly Musculoskeletal: Head/Neck/Chest: normocephalic and head atraumatic Neurologic: PERRL, EOMI, accommodation nl, no face palsy, no dysarthria CN's II-XI intact bilaterally Psychiatric: A+Ox3, euthymic affect Results & Data Vital Signs (Past 12 Hours) Vital Signs Temp Pulse Pulse Resp BP BP Pulse Ox 06/12/19 09:58 72 16 163/75 H 96 06/12/19 07:45 36.5 C 85 20 155/86 H 96 Code Status & VTE Plan VTE Prophylaxis Plan VTE Prophylaxis will be ordered: Yes (1) Vomiting Nausea presence: with nausea Vomiting Intractability: non-intractable Vomiting type: unspecified Qualified Code(s): R11.2 - Nausea with vomiting, unspecified
[2019-06-12] MEDS ORDERED: DEXTROSE 50% 50 ML SYRINGE IV PRN (12:09)
[2019-06-12] MEDS ORDERED: GLUCOSE 10 TABS/TUBE PO PRN (12:09)
[2019-06-12] MEDS ORDERED: GLUCOSE 40% GEL 15 GM TUBE PO PRN (12:09)
[2019-06-12] MEDS ORDERED: CARBOHYDRATES FOR HYPOGLYCEMIA PO PRN (12:09)
[2019-06-12] MEDS ORDERED: GLUCAGON FOR INJ 1 MG VIAL SQ PRN (12:09)
--- NOTE | 2019-06-12 13:53 | Emergency Department Note ---
Entered by Karen Cobb acting as a scribe for Ricardo Turner DO History of Present Illness General Chief complaint: Rectal Bleed Stated complaint: BLEEDING FROM RECTUM,VOMITING Source: patient History of Present Illness Onset (ago): hour(s) (this morning) Location: abdomen Pain Consistency: + intermittent Maximum Pain Intensity: 7 Quality: + other (rectal bleeding) Associated symptoms: + nausea/vomiting and + other (positive diarrhea; negative blood in vomit; negative urinary symptoms; positive generalized abdominal pain) The patient is a 84 year old female who presents to the Emergency Room with complaints of intermittent rectal bleeding that began this morning. The patient states that she had one episode this morning of bright red blood in the toilet and states that this was then followed by an episode of darker blood in the toilet. The patient states that she has had persistent vomiting and diarrhea beginning yesterday morning. She reports approximately 10 episodes of vomiting and diarrhea each. The patient denies blood in her vomit and urinary symptoms. She reports generalized abdominal pain during this time. The patient states that she last vomited last night at approximately 2030, 12 hours prior to arrival. The patient states that she has recently had gastritis and diverticulitis. The patient states that she is on blood thinners. She reports a history of a cholecystectomy. Home Medications Home Medications Medication Instructions Recorded Confirmed Type calcium carbonate [Tums] 400 mg PO BIDM 09/13/18 06/12/19 History cholecalciferol (vitamin D3) 2,000 unit PO 09/13/18 06/12/19 History [Vitamin D3] metformin 500 mg PO 09/13/18 06/12/19 History metoprolol succinate 50 mg PO QAM 09/13/18 06/12/19 History montelukast 10 mg PO QAM 09/13/18 06/12/19 History quinapril 20 mg PO QAM 09/13/18 06/12/19 History spironolactone 25 mg PO QAM 09/13/18 06/12/19 History pantoprazole 40 mg PO QAM 09/19/18 06/12/19 History rosuvastatin 20 mg PO 09/19/18 06/12/19 History Basaglar KwikPen U-100 Insulin 9 unit SUBCUT QA 01/31/19 06/12/19 History acetaminophen [Tylenol Extra 500 mg PO Q6H PRN 01/31/19 06/12/19 History Strength] albuterol sulfate [ProAir HFA] 2 puff INHALATION QID PRN 01/31/19 06/12/19 History Allergies Allergy/AdvReac Type Severity Reaction Status Date / Time hydrochlorothiazide Allergy Unknown unknown Unverified 06/12/19 10:08 Past Med/Surg History Medical History Asthma (Chronic) Diabetes (Chronic) Heart disease (Chronic) Hyperlipemia (Chronic) Hypertension (Chronic) Obesity (Chronic) Osteoarthritis (Chronic) Surgical History History of appendectomy (Chronic) History of cardiac cath (Chronic) 05/2009, 08/2013; no stents placed History of cholecystectomy (Chronic) History of hysterectomy (Chronic) History of thyroidectomy (Chronic) partial removal thyroid lobe. 02/11/2011 Family History Other Coronary heart disease Diabetes Hypertension Social History Preferred Language: French Communication Ability: Effective Beliefs That Will Affect Care: None marital status: Current Living Situation: Spouse current occupational status: retired Feels Safe at Home: Yes Smoking Status: Never smoker Hx Alcohol Use: No Hx Substance Use: No Review of Systems See HPI for pertinent positives & negatives. and A total of 10 systems reviewed and were otherwise negative Physical Exam Vital Signs Vital Signs - 24 hr 06/12/19 07:45 06/12/19 08:00 06/12/19 08:04 Temperature 36.5 C Temperature Source Oral Oral Pulse Rate 85 76 Pulse Rate [Right Finger] Pulse Rate from SpO2 Sensor Respiratory Rate 20 14 Respiratory Effort / Characteristics Non-Labored Spontaneous Respiratory Depth Normal Blood Pressure 155/86 H Blood Pressure [Left Arm] Blood Pressure Mean 109 Blood Pressure Mean [Left Arm] Blood Pressure Position Sitting Pulse Oximetry 96 Oxygen Delivery Method Room Air Sepsis Recent Fever Within 48 Hours No Sepsis Action Taken by Nursing No Action Required 06/12/19 08:30 06/12/19 09:07 06/12/19 09:30 Temperature Temperature Source Pulse Rate 69 82 77 Pulse Rate [Right Finger] Pulse Rate from SpO2 Sensor 80 77 Respiratory Rate 15 18 22 Respiratory Effort / Characteristics Respiratory Depth Blood Pressure Blood Pressure [Left Arm] Blood Pressure Mean Blood Pressure Mean [Left Arm] Blood Pressure Position Pulse Oximetry 95 98 Oxygen Delivery Method Sepsis Recent Fever Within 48 Hours Sepsis Action Taken by Nursing 06/12/19 09:56 06/12/19 09:58 06/12/19 10:00 Temperature Temperature Source Pulse Rate 76 71 Pulse Rate [Right Finger] 72 Pulse Rate from SpO2 Sensor 76 71 Respiratory Rate 21 16 17 Respiratory Effort / Characteristics Respiratory Depth Blood Pressure 163/75 H 149/76 H Blood Pressure [Left Arm] 163/75 H Blood Pressure Mean 91 115 Blood Pressure Mean [Left Arm] 104 Blood Pressure Position Pulse Oximetry 98 96 98 Oxygen Delivery Method Room Air Sepsis Recent Fever Within 48 Hours Sepsis Action Taken by Nursing 06/12/19 10:30 06/12/19 10:31 Temperature Temperature Source Pulse Rate 74 82 Pulse Rate [Right Finger] Pulse Rate from SpO2 Sensor 75 81 Respiratory Rate 21 17 Respiratory Effort / Characteristics Respiratory Depth Blood Pressure 160/70 H Blood Pressure [Left Arm] Blood Pressure Mean 95 Blood Pressure Mean [Left Arm] Blood Pressure Position Pulse Oximetry 97 96 Oxygen Delivery Method Sepsis Recent Fever Within 48 Hours Sepsis Action Taken by Nursing GENERAL: Sitting up in bed, wearing hospital gown, no acute distress, non-toxic. EYE EXAM: normal conjunctiva OROPHARYNX: no exudate, no erythema, lips, buccal mucosa, and tongue normal and mucous membranes are moist NECK: supple, no nuchal rigidity, no adenopathy, non-tender LUNGS: Clear to auscultation. Normal chest wall mechanics HEART: no murmurs, S1 normal and S2 normal ABDOMEN: Mild diffuse abdominal tenderness, abdomen soft, normo-active bowel sounds, no masses, no rebound or guarding. RECTAL: Heme positive. BACK: Back is symmetrical on inspection and there is no deformity, no midline tenderness, no CVA tenderness. SKIN: no rashes and no bruising UPPER EXTREMITIES: upper extremities are grossly normal. LOWER EXTREMITIES: No pitting edema. NEURO EXAM: Normal sensorium, cranial nerves II-XII grossly intact, normal speech, no gross weakness of arms, no gross weakness of legs. Course Course ED COURSE: Vital signs were reviewed and showed hypertension. The patients medical record was reviewed. The patient has a history of GI bleed with erosive gastritis, internal hemorrhoids, and diverticulosis. The above diagnostic studies were performed and reviewed. ED treatments and interventions as stated above. 0811: The patient was evaluated in room B11B. A complete history and physical examination was performed. 0953: Upon reevaluation, the patient is resting comfortably. I discussed my findings with the patient and she understands and agrees with the treatment plan. Based on the patients age, coexisting illnesses, exam and lab findings the decision to treat as an inpatient was made. The patient remained stable while under my care. 1028: The patient will be evaluated for further management. I discussed the case with Dr. Moe Hospitalist who accepts the patient for further azucena luation. Administered Medications Ioversol (Optiray 320 100ml) 94 ml IV ONCE PRN PRN Reason: Interaction Checking Stop: 06/16/19 08:55 Last Admin: 06/12/19 08:57 Dose: 94 ml Documented by: [id number] Discontinued Medications Famotidine (Pepcid 20mg Iv Push) 20 mg IV ONE STA Stop: 06/12/19 10:24 Last Admin: 06/12/19 10:57 Dose: 20 mg Documented by: [id number] Sodium Chloride (Nss 1000ml) 500 mls @ 999 mls/hr IV .Q31M ONE Stop: 06/12/19 10:53 Last Admin: 06/12/19 10:57 Dose: 999 mls/hr Documented by: [id number] Medical Decision Making Differential Diagnosis Differential diagnosis includes etiologies such as diverticulosis, AVM, coagulopathy, colitis, inflammatory bowel disease, malignancy, Nancy-Villegas tear, esophagitis, peptic ulcer disease, variceal bleed, gastritis, epistaxis, fissure, hemorrhoids, as well as others were entertained. Medical Records Attestation: I reviewed the patient's medical records. Home Medications Current Medication List: was personally reviewed by me Laboratory Data Attestation: I reviewed the patient's lab results. Result diagrams: 06/12/19 08:00 06/12/19 08:00 Lab Results 06/12/19 06/12/19 06/12/19 Range/Units 08:00 08:00 08:00 WBC 6.03 (4.8-10.8) K/uL RBC 5.14 (4.2-5.4) M/uL Hgb 16.4 H (12.0-16.0) g/dL Hct 47.6 H (37-47) % MCV 92.6 (80-100) fL MCH 31.9 (25-34) pg MCHC 34.5 (32-36) g/dL RDW Std Deviation 43.4 (36.4-46.3) fL RDW Coeff of Milana 12.9 (11.5-14.5) % Plt Count 134 (130-400) K/uL MPV 10.2 (7.4-10.4) fL Immature Gran % (Auto) 0.2 % Neut % (Auto) 54.7 % Lymph % (Auto) 28.9 % Twiggs % (Auto) 14.3 % Eos % (Auto) 1.7 % Baso % (Auto) 0.2 % Immature Gran # (Auto) 0.01 (0.00-0.02) K/uL Neut # (Auto) 3.31 (1.4-6.5) K/uL Lymph # (Auto) 1.74 (1.2-3.4) K/uL Tw[place]gs # (Auto) 0.86 H (0.11-0.59) K/uL Eos # (Auto) 0.10 (0-0.5) K/uL Baso # (Auto) 0.01 (0-0.2) K/uL PT 11.4 (9.0-12.0) Seconds INR 1.1 (0.9-1.1) APTT 27.9 (21.0-31.0) Seconds PTT Ratio 1.0 Sodium 138 (136-145) mmol/L Potassium 4.3 (3.5-5.1) mmol/L Chloride 105 (98-107) mmol/L Carbon Dioxide 28 (21-32) mmol/L Anion Gap 5.0 (3-11) BUN 22 H (7-18) mg/dl Creatinine 1.18 (0.6-1.2) mg/dl Est Cr Clr Drug Dosing 30.7 ml/min Est GFR ( Amer) 48.7 Est GFR (Non-Af Amer) 42.0 BUN/Creatinine Ratio 18.7 (10-20) Glucose 120 H (70-99) mg/dl Calcium 9.3 (8.5-10.1) mg/dl Total Bilirubin 0.9 (0.2-1) mg/dl AST 14 L (15-37) U/L ALT 28 (12-78) U/L Alkaline Phosphatase 49 (45-117) U/L Total Protein 7.7 (6.4-8.2) gm/dl Albumin 3.6 (3.4-5.0) gm/dl Globulin 4.1 H (2.5-4.0) gm/dl Albumin/Globulin Ratio 0.9 (0.9-2) Blood Type Antibody Screen 06/12/19 Range/Units 08:23 WBC (4.8-10.8) K/uL RBC (4.2-5.4) M/uL Hgb (12.0-16.0) g/dL Hct (37-47) % MCV (80-100) fL MCH (25-34) pg MCHC (32-36) g/dL RDW Std Deviation (36.4-46.3) fL RDW Coeff of Milana (11.5-14.5) % Plt Count (130-400) K/uL MPV (7.4-10.4) fL Immature Gran % (Auto) % Neut % (Auto) % Lymph % (Auto) % Twiggs % (Auto) % Eos % (Auto) % Baso % (Auto) % Immature Gran # (Auto) (0.00-0.02) K/uL Neut # (Auto) (1.4-6.5) K/uL Lymph # (Auto) (1.2-3.4) K/uL Twiggs # (Auto) (0.11-0.59) K/uL Eos # (Auto) (0-0.5) K/uL Baso # (Auto) (0-0.2) K/uL PT (9.0-12.0) Seconds INR (0.9-1.1) APTT (21.0-31.0) Seconds PTT Ratio Sodium (136-145) mmol/L Potassium (3.5-5.1) mmol/L Chloride (98-107) mmol/L Carbon Dioxide (21-32) mmol/L Anion Gap (3-11) BUN (7-18) mg/dl Creatinine (0.6-1.2) mg/dl Est Cr Clr Drug Dosing ml/min Est GFR ( Amer) Est GFR (Non-Af Amer) BUN/Creatinine Ratio (10-20) Glucose (70-99) mg/dl Calcium (8.5-10.1) mg/dl Total Bilirubin (0.2-1) mg/dl AST (15-37) U/L ALT (12-78) U/L Alkaline Phosphatase (45-117) U/L Total Protein (6.4-8.2) gm/dl Albumin (3.4-5.0) gm/dl Globulin (2.5-4.0) gm/dl Albumin/Globulin Ratio (0.9-2) Blood Type O Negative Antibody Screen NEGATIVE Imaging Data Radiologist's Impression: Radiology results as stated below per my review and the radiologist's interpretation: ABDOMEN AND PELVIS CT WITH IV CONTRAST CT DOSE: 875.33 mGy.cm HISTORY: Acute generalized abdominal pain with GI bleed diffuse abd pain w/ GI bleed TECHNIQUE: Multiaxial CT images of the abdomen and pelvis were performed following the IV administration of 94 cc of Optiray 320, A dose lowering technique was utilized adhering to the principles of ALARA. COMPARISON STUDY: CT abdomen and pelvis 01/31/2019 FINDINGS: Clear lung bases. No pneumatosis or pneumoperitoneum. Aortic annular and coronary arterial calcifications are noted. Imaged inferior cardiac chambers are unremarkable. Cholecystectomy. Spleen and adrenal glands are unremarkable. There are multiple hepatic cysts noted within the right left hepatic lobes measuring up to 2.1 cm. There is mild intrahepatic biliary ductal dilation of the left hepatic lobe laterally which is unchanged. Cholecystectomy. Dilation of the extrahepatic common bile duct is likely on a postsurgical basis. 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 3.5 cm cyst with mild marginal calcification involves the superior pole left kidney, unchanged. No renal calculi or hydronephrosis. Partial distention of the urinary bladder. Hysterectomy. Mixed plaque the abdominal aorta without aneurysm. No adenopathy. Mild nonspecific distal esophageal wall thickening. No bowel obstruction. Colonic diverticulosis without acute diverticulitis. No bowel wall thickening, ascites or mesenteric stranding. Soft tissues are within normal limits. Degenera tive changes of the spine, pelvis and hips. Anterolisthesis L4 on L5, likely secondary to long-standing facet arthrosis. IMPRESSION: 1. No acute intra-abdominal or intrapelvic abnormality identified. 2. Colonic diverticulosis without acute diverticulitis. 3. Prior cholecystectomy and hysterectomy. 4. Additional findings as above. ACT 112: Negative or not required by law. The above report was generated using voice recognition software. It may contain grammatical, syntax or spelling errors. Electronically signed by: Gavin Figueroa M.D. 06/12/2019 9:28 AM ECG Data Attestation: I personally reviewed and interpreted this ECG as follows: Indication: + vomiting Rate (beats per minute): 73 Rhythm: + sinus rhythm ECG Intervals/blocks: + Normal QT-c ECG [place]: + Left axis deviation ECG Findings: + Q waves (septal); no PVCs Blood Pressure Blood Pressure Findings: Elevated blood pressure Blood Pressure Disposition: further management by hospitalist SEUN Narrative Patient is an 84-year-old female who presents the ER for vomiting and diarrhea with about 10 episodes in the past 24 hours of each. Past 2 loose bowel movements have been bright red blood per rectum. She notes that the last one was a little bit darker. History of previous abdominal surgeries. She has a history of erosive gastritis with an upper GI bleed diverticuli as well. IV was established blood work was obtained and showed no significant leukocytosis or anemia. INR was unremarkable. BMP along with LFTs bilirubin was unremarkable. Patient was given IV fluids and IV famotidine. Patient was updated bedside. Patient was discussed with the hospitalist and will be observed with the previous upper GI bleed, bright red blood per rectum which became darker and slightly elevated BUN. Impression & Plan GI bleed, Elevated BUN, Diarrhea, Vomiting Discharge Plan Visit Data *Final* Discharge Date/Time: 06/12/19 11:50 Chief Complaint: Rectal Bleed Stated Complaint: BLEEDING FROM RECTUM,VOMITING ED Provider: Ricardo Turner Discharge Problem: GI bleed, Elevated BUN, Diarrhea, Vomiting Patient Disposition: Admitted As Inpatient Discharge Instructions Interventions: ED Discharge Assessment Last Done: 06/12/19 11:50 Discharge Problem: GI bleed Qualifiers: GI bleed type/associated pathology: unspecified gastrointestinal hemorrhage type Qualified Code(s): K92.2 - Gastrointestinal hemorrhage, unspecified Diarrhea Qualifiers: Diarrhea type: unspecified type Qualified Code(s): R19.7 - Diarrhea, unspecified Vomiting Qualifiers: Vomiting type: unspecified Vomiting Intractability: non-intractable Nausea presence: with nausea Qualified Code(s): R11.2 - Nausea with vomiting, unspecified The scribe's documentation has been prepared under my direction and personally reviewed by me in its entirety. I confirm that the note above accurately reflects all work, treatment, procedures, and medical decision making performed by me.
[2019-06-12] MEDS: INSULIN ASPART 100 UNITS/ML 3 ML PEN SC SCH ×3 (14:30→21:50)
[2019-06-12 17:09] LABS: Basophils # (auto) 0.01 K/uL (0-0.2); Basophils % (auto) 0.2 %; Eosinophils # (auto) 0.11 K/uL (0-0.5); Eosinophils % (auto) 2.1 %; Hematocrit (blood only) 41.5 % (37-47); Hemoglobin 14.2 g/dL (12.0-16.0); Immature Granulocytes # (auto) 0.01 K/uL (0.00-0.02); Immature Granulocytes % (auto) 0.2 %; Lymphocytes % (auto) 36.5 %; Mean Corpuscular Hemoglobin 32.1 pg (25-34); Mean Corpuscular Hgb Conc 34.2 g/dL (32-36); Mean Corpuscular Volume 93.7 fL (80-100); Mean Platelet Volume 9.6 fL (7.4-10.4); Monocytes # (auto) 0.62 K/uL (0.11-0.59); Monocytes % (auto) 11.9 %; Neutrophils # (auto) 2.55 K/uL (1.4-6.5); Neutrophils % (auto) 49.1 %; Platelet Count 119 K/uL (130-400); RDW Coefficient of Variation 12.9 % (11.5-14.5); Red Blood Count 4.43 M/uL (4.2-5.4)
[2019-06-12] MEDS: CALCIUM CARBONATE 500 MG CHEWABLE TAB PO SCH (18:00)
[2019-06-12] MEDS: ROSUVASTATIN CALCIUM 20 MG TAB PO SCH (19:55)
[2019-06-12] MEDS: CHOLECALCIFEROL 1,000 UNITS TAB PO SCH (19:55)
[2019-06-13] MEDS ORDERED: Nursing to Pharmacy Communication ONE (03:35)
[2019-06-13 05:56] LABS: Estimated Average Glucose 131 mg/dl; Hemoglobin A1C 6.2 % (4.5-5.6)
[2019-06-13] MEDS ORDERED: INSULIN ASPART 100 UNITS/ML 3 ML PEN SC SCH (06:00)
[2019-06-13] MEDS: lisinopriL 20 MG TAB PO SCH (08:23)
[2019-06-13] MEDS: CALCIUM CARBONATE 500 MG CHEWABLE TAB PO SCH ×2 (08:23→17:13)
[2019-06-13] MEDS: METOPROLOL SUCC 50MG EXT REL TAB PO SCH (08:23)
[2019-06-13] MEDS: MONTELUKAST SODIUM 10 MG TABLET PO SCH (08:23)
[2019-06-13] MEDS: PANTOprazole 40 MG TAB PO SCH (08:23)
[2019-06-13] MEDS: INSULIN GLARGINE SOLOSTAR 100 UNITS/ML 3 ML PEN SQ SCH (09:00)
--- NOTE | 2019-06-13 09:32 | Gastrointestinal Consultation ---
Date of Consultation June 13, 2019 Assessment & Plan (1) GI bleed: Blood with BM yesterday likely outlet bleeding as Hb/Hct and BUN are normal and it has not recurred. Intermittent nausea/vomiting/diarrhea, likely viral gastroenteritis. Plan: 1. Stool studies: culture, C-diff. 2. Would defer endoscopy. 3. GI will sign off. Please notify us of new/worsening GI issues. Present on Admission?: Yes Supervising Physician Co-Signing Physician Notes Late entry: Patient was seen and examined on 06/13 with NIKOLAI Rocha whose note reflects our findings and plan. History of Present Illness Reason for Consultation: Rectal bleeding Requesting Physician: Dr. Carpio Attending Physician: Genesis Bocanegra DO History of Present Illness Ms. Hendricks is an 84 yr old female pt of Dr. Jorge Acevedo with a hx of PMH HTN, dyslipidemia, DM II, asthma, obesity who presented to the ED yesterday morning with report of vomiting and bloody diarrhea. On arrival, Hb was 16->14.2 today. BUN is normal at 22, Cr 1.18. CT abd/pelvis with IV, nor oral contrast suggests diverticulosis. Per pt, prior endoscopy was at [facility] in Jun 2018 with diverticulosis, no other abnormalities. Pt is awake, alert, oriented. She tells me that she passed one BM with blood just prior to admission, no BMs or rectal bleeding since arrival. Allergies Allergy/AdvReac Type Severity Reaction Status Date / Time hydrochlorothiazide Allergy Unknown unknown Unverified 06/12/19 10:08 Home Medications Home Medications Medication Instructions Recorded Confirmed Type calcium carbonate [Tums] 400 mg PO BIDM 09/13/18 06/12/19 History cholecalciferol (vitamin D3) 2,000 unit PO HS 09/13/18 06/12/19 History [Vitamin D3] metoprolol succinate 50 mg PO QAM 09/13/18 06/12/19 History montelukast 10 mg PO QAM 09/13/18 06/12/19 History quinapril 20 mg PO QAM 09/13/18 06/12/19 History spironolactone 25 mg PO QAM 09/13/18 06/12/19 History pantoprazole 40 mg PO QAM 09/19/18 06/12/19 History rosuvastatin 20 mg PO HS 09/19/18 06/12/19 History Basaglar MarianoPen U-100 Insulin 9 unit SUBCUT QAM 01/31/19 06/12/19 History acetaminophen [Tylenol Extra 500 mg PO Q6H PRN 01/31/19 06/12/19 History Strength] albuterol sulfate [ProAir HFA] 2 puff INHALATION QID PRN 01/31/19 06/12/19 History Patient History Medical History Asthma (Chronic) Diabetes (Chronic) Heart disease (Chronic) Hyperlipemia (Chronic) Hypertension (Chronic) Obesity (Chronic) Osteoarthritis (Chronic) Surgical History History of appendectomy (Chronic) History of cardiac cath (Chronic) 05/2009, 08/2013; no stents placed History of cholecystectomy (Chronic) History of hysterectomy (Chronic) History of thyroidectomy (Chronic) partial removal thyroid lobe. 02/11/2011 Family History Other Coronary heart disease Diabetes Hypertension Social History Preferred Language: Citizen Of [place] Communication Ability: Effective Round Cutter Operator Required: No Beliefs That Will Affect Care: None marital status: Current Living Situation: Spouse current occupational status: retired Other Information That Helps Us Care for You: No Feels Safe at Home: Yes Safety Concerns: Feels Safe At This Time Smoking Status: Never smoker Hx Alcohol Use: No Hx Substance Use: No Physical Exam Constitutional: WD/WN, vitals as above Eyes: PERRL, conjunctivae normal, anicteric sclerae ENMT: external ear and nose normal, oropharynx normal Neck: trachea midline, no thyromegaly Respiratory: normal respiratory effort, lungs clear to auscultation Cardiovascular: RRR, no murmur, no edema Gastrointestinal (Abdomen): Inspection/Auscultation: abdomen normal to inspection and normal bowel sounds; abdomen not distended Percussion/Palpation: abdomen soft; abdomen nontender Skin: no rashes, warm and dry Neurologic: patellar DTR's 2+ bilat, sensation intact Psychiatric: A+Ox3, euthymic affect Genitourinary: no vaginal lesions, no adnexal mass Lymphatic: no cervical or axillary lymphadenopathy Results & Data Vital Signs (Past 12 Hours) Vital Signs Temp Pulse Resp BP Pulse Ox 06/13/19 07:18 36.7 C 75 18 158/74 H 96 06/12/19 23:41 36.3 C L 71 16 153/60 H 97 Laboratory Results WBC 5, Hb 16->14, Hct 41, [place] 119, Na 138, K 4.3, BUN 22, C4 1.18, glucose 120. Diagnostic Findings CT abd/pelvis with IV, no oral contrast on 06/12: 1. No acute intra-abdominal or intrapelvic abnormality identified. 2. Colonic diverticulosis without acute diverticulitis. 3. Prior cholecystectomy and hysterectomy. 4. Additional findings as above. (1) GI bleed GI bleed type/associated pathology: unspecified gastrointestinal hemorrhage type Qualified Code(s): K92.2 - Gastrointestinal hemorrhage, unspecified
[2019-06-13] MEDS: INSULIN ASPART 100 UNITS/ML 3 ML PEN SC SCH ×3 (12:21→20:50)
--- NOTE | 2019-06-13 19:11 | Hospitalist Progress Note ---
Date of Service June 13, 2019 Assessment & Plan (1) Diarrhea: Resolved, no stool has been collected as she has not had a bowel movement since admission. (2) Vomiting: Has resolved since admission. Tolerating p.o. (3) Hematochezia: Per GI will defer any type of endoscopy to the outpatient setting. Blood counts are stable and no further hematochezia is present. 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 This is a known issue for her and she has seen [facility] gastroenterology for this in the past. Prior notes report no further work-up was pursued secondary to her age. However in the setting of her pattern of symptoms the last couple of months, I recommended that she does follow-up with them as outpatient to consider investigating this further. I did discuss this with the GI nurse who will contact her for scheduling. (5) DVT prophylaxis: SCDs/ambulation Full code Disposition-home when medically stable Genesis Bocanegra DO [facility] Hospitalist Subjective 84-year-old female reporting acute abdominal pain associated with vomiting and loose stools. Some hematochezia was present prompting ER presentation. She reports that all of these symptoms have resolved and reports a pattern of the symptoms emerging and episodes approximately 4 times in the last 2 months. She is currently feeling well and is tolerating p.o. She denies any symptoms at this time. She does report using metformin at 1 of these points and says that she thinks it made her sick. Review of Systems Review of Systems: All systems reviewed & are unremarkable except as noted in HPI & below Physical Exam Physical Exam: CONSTITUTIONAL: WNWD, vitals as above, generally well- appearing EYES: normal conjunctivae, no scleral icterus ENT: MMM RESPIRATORY: clear to auscultation bilaterally, no crackles, rales or wheezes, normal respiratory effort CARDIOVASCULAR: regular rate and rhythm, S1 and 2 heard without murmurs, gallops or rubs, no JVD, no peripheral edema GASTROINTESTINAL: normal bowel sounds, soft, nontender, nondistended MUSCULOSKELETAL: strength 5/5 throughout, head is normocephalic and atraumatic SKIN: warm and dry NEUROLOGIC: CN 2-12 grossly intact, normal cognition, normal speech, no gross focal deficits. PSYCHIATRIC: alert cooperative and oriented to person, place and time. Results & Data Vital Signs (Past 12 Hours) Vital Signs Temp Pulse Resp BP Pulse Ox 06/13/19 15:44 36.7 C 64 19 145/78 H 96 06/13/19 07:18 36.7 C 75 18 158/74 H 96 Medications Administered Current Inpatient Medications Acetaminophen (Tylenol) 325 mg PO Q6H PRN PRN Reason: pain of fever Stop: 07/12/19 10:59 Calcium Carbonate (Tums) 500 mg PO BIDM [facility] Stop: 07/12/19 16:59 Last Admin: 06/13/19 17:13 Dose: 500 mg Documented by: Dextrose (Dextrose 50%) 25 - 50 ml IV UD PRN; Protocol PRN Reason: Hypoglycemia Protocol Stop: 07/12/19 12:08 Glucagon (Glucagen) 1 mg SQ UD PRN; Protocol PRN Reason: Hypoglycemia Protocol Stop: 07/12/19 12:08 Glucose (Dex4 Glucose) 4 - 8 tabs PO UD PRN; Protocol PRN Reason: Hypoglycemia Protocol Stop: 07/12/19 12:08 Glucose (Glucose 40%) 15 - 30 gm PO UD PRN; Protocol PRN Reason: Hypoglycemia Protocol Stop: 07/12/19 12:08 Insulin Aspart (Novolog Flexpen) 0 units SC [facility] Stop: 07/13/19 11:59 Last Admin: 06/13/19 18:13 Dose: Not Given Documented by: Insulin Glargine (Lantus Solostar Pen) 9 units SQ [facility] Stop: 07/13/19 08:59 Last Admin: 06/13/19 09:00 Dose: 9 units Documented by: Ioversol (Optiray 320 100ml) 94 ml IV ONCE PRN PRN Reason: Interaction Checking Stop: 06/16/19 08:55 Last Admin: 06/12/19 08:57 Dose: 94 ml Documented by: Lisinopril (Zestril) 20 mg PO [facility] Stop: 07/13/19 08:59 Last Admin: 06/13/19 08:23 Dose: 20 mg Documented by: Metoprolol Succinate (Toprol Xl) 50 mg PO [facility] Stop: 07/13/19 08:59 Last Admin: 06/13/19 08:23 Dose: 50 mg Documented by: Miscellaneous (Carbohydrates For Hypoglycemia) 15 - 30 gm PO UD PRN PRN Reason: Hypoglycemia Protocol Stop: 07/12/19 12:08 Montelukast Sodium (Singulair) 10 mg PO [facility] Stop: 07/13/19 08:59 Last Admin: 06/13/19 08:23 Dose: 10 mg Documented by: Ondansetron HCl (Zofran) 4 mg IV Q6H PRN PRN Reason: Nausea Stop: 07/12/19 10:56 Pantoprazole Sodium (Protonix) 40 mg PO [facility] Stop: 07/13/19 08:59 Last Admin: 06/13/19 08:23 Dose: 40 mg Documented by: Rosuvastatin Calcium (Crestor) 20 mg PO [facility] Stop: 07/12/19 20:59 Last Admin: 06/12/19 19:55 Dose: 20 mg Documented by: Vitamin D (Vitamin D3) 2,000 units PO [facility] Stop: 07/12/19 20:59 Last Admin: 06/12/19 19:55 Dose: 2,000 units Documented by: (1) Diarrhea Diarrhea type: unspecified type Qualified Code(s): R19.7 - Diarrhea, unspecified (2) Vomiting Nausea presence: with nausea Vomiting Intractability: non-intractable Vomiting type: unspecified Qualified Code(s): R11.2 - Nausea with vomiting, unspecified
[2019-06-13] MEDS: ROSUVASTATIN CALCIUM 20 MG TAB PO SCH (20:09)
[2019-06-13] MEDS: CHOLECALCIFEROL 1,000 UNITS TAB PO SCH (20:10)
[2019-06-14 06:43] LABS: Hematocrit (blood only) 40.8 % (37-47); Hemoglobin 14.1 g/dL (12.0-16.0); Mean Corpuscular Hemoglobin 32.3 pg (25-34); Mean Corpuscular Hgb Conc 34.6 g/dL (32-36); Mean Corpuscular Volume 93.6 fL (80-100); Mean Platelet Volume 9.4 fL (7.4-10.4); Platelet Count 116 K/uL (130-400); RDW Coefficient of Variation 12.7 % (11.5-14.5); RDW Standard Deviation 43.8 fL (36.4-46.3); Red Blood Count 4.36 M/uL (4.2-5.4); White Blood Count 4.98 K/uL (4.8-10.8)
[2019-06-14 07:19] LABS: BUN Creatinine Ratio 18.6 (10-20); Calcium 8.9 mg/dl (8.5-10.1); Creatinine Clr Calc Pharmacy 36.3 ml/min; Est GFR (African American) 58.8; Est GFR (Non-African American) 50.7; Potassium 4.1 mmol/L (3.5-5.1)
[2019-06-14] MEDS: lisinopriL 20 MG TAB PO SCH (09:05)
[2019-06-14] MEDS: PANTOprazole 40 MG TAB PO SCH (09:05)
[2019-06-14] MEDS: MONTELUKAST SODIUM 10 MG TABLET PO SCH (09:05)
[2019-06-14] MEDS: METOPROLOL SUCC 50MG EXT REL TAB PO SCH (09:05)
[2019-06-14] MEDS: INSULIN GLARGINE SOLOSTAR 100 UNITS/ML 3 ML PEN SQ SCH (09:06)
[2019-06-14] MEDS: INSULIN ASPART 100 UNITS/ML 3 ML PEN SC SCH ×2 (09:08→13:17)
[2019-06-14] MEDS: CALCIUM CARBONATE 500 MG CHEWABLE TAB PO SCH (09:14)
--- NOTE | 2019-06-14 14:49 | Discharge Summary ---
Date of Service June 14, 2019 Admission HPI Per Admitting Provider This is a patient who had acute abdominal pain and associated vomiting x 10 episodes as per patient and also associated symptoms of loose stools and she saw blood in her stool. Patient's hemoglobin as 16 on admission with somewhat elevated creatinine suggestive of dehydration with lab imaging of diverticulosis. Patient denies history of irritable bowel disease but notes that 4 days ago she had similar symptoms and 5 days before that time she also had similar symptoms. At those times she reported that she thought it could have been associated with metformin use but she has not been taking metformin in last 2 days. Patient does not have abdomen pain currently in ED. no chest pain or palpitations of shortness of breath. no dizziness. no lightheadedness. family at bedside including and son Frederick [phone] Admission Exam Per Admitting Provider Constitutional: comfortable Eyes: PERRL, conjunctivae normal, anicteric sclerae EOM intact bilaterally ENMT: external ear and nose normal, oropharynx normal Neck: normal visual inspection Respiratory: normal respiratory effort, lungs clear to auscultation Cardiovascular: Rate/Rhythm: regular rate and regular rhythm Gastrointestinal (Abdomen): normal bowel sounds, soft, nontender, no hepatosplenomegaly Musculoskeletal: Head/Neck/Chest: normocephalic and head atraumatic Neurologic: PERRL, EOMI, accommodation nl, no face palsy, no dysarthria CN's II-XI intact bilaterally Psychiatric: A+Ox3, euthymic affect Principal Diagnosis nausea and vomiting-resolved hematochezia-resolved Discharge Exam CONSTITUTIONAL: WNWD, vitals as above, generally well-appearing EYES: normal conjunctivae, no scleral icterus ENT: MMM RESPIRATORY: clear to auscultation bilaterally, no crackles, rales or wheezes, normal respiratory effort CARDIOVASCULAR: regular rate and rhythm, S1 and 2 heard without murmurs, gallops or rubs, no JVD, no peripheral edema GASTROINTESTINAL: normal bowel sounds, soft, nontender, nondistended MUSCULOSKELETAL: strength 5/5 throughout, head is normocephalic and atraumatic SKIN: warm and dry NEUROLOGIC: CN 2-12 grossly intact, normal cognition, normal speech, no gross focal deficits. PSYCHIATRIC: alert cooperative and oriented to person, place and time Discharge Data Allergies Allergy/AdvReac Type Severity Reaction Status Date / Time hydrochlorothiazide Allergy Unknown unknown Unverified 06/12/19 10:08 Consultations 06/12/19 10:10 ED Decision to Admit Stat 06/12/19 10:25 Consult Gastroenterology Routine 06/12/19 12:09 Consult Case Management - Discharge Planning Routine Ordered Studies 06/12/19 08:19 CT abd pelvis IV con only Stat Hospital Course (1) Diarrhea: (2) Vomiting: (3) KIESHA (acute kidney injury): (4) Hematochezia: (5) IPMN (intraductal papillary mucinous neoplasm): 84-year-old female with multiple episodes of vomiting and diarrhea associated with hematochezia prompting ER visit. She was admitted to the hospitalist service and IV fluids were given in the setting of acute kidney injury. Creatinine was elevated to 1.2 and hemoglobin of 16 suggested dehydration on labs. Hematochezia was thought likely secondary to straining from defecation as opposed to acute GI bleed, however GI was consulted. H&H was trended and was stable. Per GI endoscopy was deferred to outpatient. 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 This appears unchanged from prior imaging studies. Record review revealed she has seen [facility] gastroenterology for this in the past and work-up was deferred secondary to her age. However in light of persistent recurring symptoms in the last 2 months, I discussed with the GI nurse practitioner about seeing her again for consideration of further investigation of this as a cause for her symptoms. I had a lengthy discussion with the patient and her family regarding other treatment efforts such as dairy restriction or weight restriction. At time of discharge she was hemodynamically stable and afebrile and tolerating p.o. She was asymptomatic. She was mentating and ambulating at baseline. She was sent home in stable condition with close primary care follow-up recommended. Total Time Total Time Spent Total Time Spent (In Minutes): 60 Total Time Includes: Examination of the Patient, Discharge Planning, Medication Reconciliation, Communication With Other Providers and Other (arranged outpatient follow-up) Discharge Plan Discharge Items Patient Disposition: Home - Self-Care Reason For Visit: VOMITING,DEHYDRATION,DIARRHEA,BLOOD PER RECTUM Discharge Diagnosis: nausea and vomiting-resolved hematochezia-resolved Condition on Discharge: Good Activity: Resume your previous activity Non-emergency contact: Primary Care Provider Call non-emergency contact if: you have any medication questions, your symptoms worsen, your pain is not controlled, your pain is worsening, your pain is unusual for you, your pain is concerning for you and you have a fever Follow-up/Referrals: Mavis Acevedo DO [Primary Care Provider] - Diet: Carb Consistent or DM2 and Low Sodium (2gm) Addtl Attending Provider Instructions: Please continue all medications as instructed on discharge list below. Please follow-up with your primary care provider as follows: 06/17/2019 10:30 AM Mavis Acevedo DO [facility] This appointment will be to discuss how you are feeling since discharge, and discuss the pattern of GI symptoms you have been experiencing to see if there is a trigger. Additionally, we are stopping your metformin, and you will need to discuss with your provider an alternative treatment strategy for your diabetes. I did discuss your pancreatic cyst again with the [facility] Gastroenterology group. With your ongoing pattern of symptoms recently, they will be contacting you to set up a follow-up and discuss if there is any further investigation you want to pursue for this cyst. It may be possible that this is related to your recurrent GI symptoms. It was a pleasure taking care of you! Please call if you have any questions or problems. You can reach a [facility] hospitalist on duty at [facility] 24 hours a day by calling [phone]. Take care of yourself. Genesis Bocanegra DO [facility] Hospitalist Pending Studies at Discharge: No Stand-Alone Forms: My [facility] [employer], Smoking Cessation Medications and DC Order Prescriptions: Continued metoprolol succinate 50 mg tablet extended release 24 hr 50 mg PO QAM RF: 0 spironolactone 25 mg tablet 25 mg PO QAM RF: 0 calcium carbonate [Tums] 200 mg calcium (500 mg) Tablet,Chewable 400 mg PO BIDM RF: 0 montelukast 10 mg tablet 10 mg PO QAM RF: 0 quinapril 20 mg tablet 20 mg PO QAM RF: 0 cholecalciferol (vitamin D3) [Vitamin D3] 2,000 unit Tablet 2,000 unit PO HS RF: 0 Basaglar KwikPen U-100 Insulin 100 unit/mL (3 mL) insulin pen 9 unit subcut QAM RF: 0 acetaminophen [Tylenol Extra Strength] 500 mg Tablet 500 mg PO Q6H PRN (Reason: Pain) RF: 0 albuterol sulfate [ProAir HFA] 90 mcg/actuation Hfa Aerosol Inhaler 2 puff inhalation QID PRN (Reason: Shortness Of Breath Or Wheezing) RF: 0 pantoprazole 40 mg tablet,delayed release (DR/EC) 40 mg PO QAM RF: 0 rosuvastatin 20 mg tablet 20 mg PO HS RF: 0 Discontinued metformin 500 mg tablet extended release 24 hr 500 mg PO HS RF: 0 Discharge Orders: Discharge Order (Routine); Ordered 06/14/19 Ordered By: Genesis Bocanegra Admission Data Admit Date/Time: 06/13/19 17:08 Attending Provider: Genesis Bocanegra Admit Provider: Silverio Tobias Primary Care Provider: Mavis Acevedo Other Providers: Silverio Tobias ; Jacqui Lira Other Interventions: Discharge Summary Assessment (RN) Last Done: 06/14/19 15:13 DC Date/Time DO NOT enter until pt leaves facility: 06/14/19 15:39
== END 2019-06-14 15:39 | disposition home or self-care (01) ==
LOC: 3N 07:41 → ED 07:41 → SUATTDRO 10:46 → 3N 11:50

== ENCOUNTER 2022-08-19 17:57 | Observation (INO) ==
--- NOTE | 2022-08-19 18:45 | CT Scan Report ---
CT SCAN OF THE BRAIN WITHOUT IV CONTRAST CLINICAL HISTORY: Dizziness. COMPARISON STUDY: CT of the brain dated 04/28/2022. TECHNIQUE: Unenhanced axial CT scan of the brain is performed from the vertex to the skull base. A do se lowering technique was utilized adhering to the principles of ALARA. CT DOSE: 537.48 mGy.cm FINDINGS: Brain parenchyma: There is age-related involutional change noting mild subcortical and periventricula r microangiopathic disease. There is no hemorrhage, mass effect, or evidence of acute territorial isc hemia by CT criteria. Degroot-white matter differentiation is preserved. No extra-axial fluid collection is seen. Ventricles, sulci, cisterns: Prominent secondary to involutional change. Intracranial vasculature: There is atherosclerotic calcification of the cavernous carotid and vertebr al arteries. Calvarium: Unremarkable. Sinuses and mastoids: There is mild mucosal thickening in the right sphenoid sinus. The remaining vis ualized paranasal sinuses are clear. The mastoid air cells are well pneumatized. Orbits: The bony orbits are grossly intact. There are bilateral ocular lens implants. IMPRESSION: There is no hemorrhage, mass effect, or evidence of acute territorial ischemia by CT nico saleem. ACT 112: Negative or not required by law. Electronically signed by: Bossman Henao M.D. 08/19/2022 6:42 PM
[2022-08-19 18:56] LABS: Basophils # (auto) 0.06 K/uL (0-0.2); Basophils % (auto) 0.9 %; Eosinophils # (auto) 0.48 K/uL (0-0.50); Eosinophils % (auto) 7.4 %; Hematocrit (blood only) 41.4 % (37.0-47.0); Hemoglobin 14.2 g/dl (12.0-16.0); Immature Granulocytes # (auto) 0.03 K/uL (0.01-0.20); Immature Granulocytes % (auto) 0.5 %; Lymphocytes # (auto) 1.62 K/uL (1.2-3.4); Mean Corpuscular Hemoglobin 32.3 pg (25.0-34.0); Mean Corpuscular Hgb Conc 34.3 g/dL (32.0-36.0); Mean Corpuscular Volume 94.1 fL (80.0-100.0); Mean Platelet Volume 9.7 fL (9.4-12.4); Monocytes # (auto) 0.59 K/uL (0.11-0.59); Monocytes % (auto) 9.1 %; Neutrophils # (auto) 3.69 K/uL (1.40-6.50); Neutrophils % (auto) 57.1 %; Platelet Count 160 K/uL (130-400); RDW Coefficient of Variation 12.2 % (11.5-14.5); RDW Standard Deviation 42.8 fL (36.4-46.3); White Blood Count 6.47 K/ul (4.8-10.8)
[2022-08-19 19:03] LABS: Alanine Aminotransferase 24 U/L (7-52); Albumin Globulin Ratio 1.4 (0.9-2); Albumin Level 4.3 gm/dl (3.4-5.0); Alkaline Phosphatase 43 U/L (34-104); Anion Gap 6 (3-11); Aspartate Aminotransferase 21 U/L (13-39); BUN Creatinine Ratio 15.9 (10-20); Bilirubin,Total 0.7 mg/dl (0.2-1.0); Blood Urea Nitrogen 13 mg/dl (6-23); Calcium 9.6 mg/dl (8.5-10.1); Carbon Dioxide 28 mmol/L (21-32); Chloride 100 mmol/L (98-107); Est GFR (Non-African American) 63.9 ml/min; Globulin 3.1 gm/dl (2.5-4.0); Glucose 153 mg/dl (70-99(Fasting)); Sodium 134 mmol/L (136-145); Total Protein 7.4 gm/dl (6.0-8.3)
[2022-08-19 19:10] LABS: Troponin I High Sensitivity 4.6 pg/ml (0-14)
[2022-08-19 19:14] LABS: Partial Thromboplastin Ratio 1.1; Partial Thromboplastin Time 31.4 Seconds (21.0-31.0); Prothrombin Time 11.1 Seconds (9.0-12.0)
--- NOTE | 2022-08-19 19:20 | Emergency Department Note ---
Impression & Plan Hypertensive urgency, Dizziness, Cough ED Provider Note NAME: ABUNDIO GURROLA AGE: 87 SEX: F : 1935 ARRIVES VIA: Walk-In INFORMANT: Patient, ED PROVIDER(S): Constantine Lee MD CHIEF COMPLAINT: Dizziness MEDICAL DECISION MAKING: Patient presents due to concern for dizziness. Blood work was ordered IV was then established chest x-ray was ordered as well. The patient was ordered IV fluids. Patient has a normal white count H&H and platelet count. Kidney function is unremarkable. BSG 153 but nonfasting and the patient is not in DKA with normal bicarb and anion gap. LFTs unremarkable. Troponin not elevated. Hyponatremia at 134. Slightly worse compared to prior. The patient did have a head CT completed which is negative. EKG fairly unremarkable. I did discuss medical management as an outpatient by increasing the patient's metoprolol versus inpatient treatment for hypertensive urgency. After further discussion with the patient the patient's family they would prefer inpatient observation and treatment at this time. I did speak the on-call hospitalist service Dr. Carpio and the patient was admitted to the medicine service. Prior /Outside records reviewed: I did review the patient's diabetes visit with NIKOLAI Latif. This was from August 2021. Differential diagnosis: Benign positional vertigo, dehydration, hypovolemia, anemia, tumor, infection, hypoglycemia, electrolyte abnormalities, cardiac sources, intracerebral event, toxicologic, neurologic, as well as other pathologies. Diagnostics, as interpreted by me: ECG: Sinus with sinus arrhythmia, rate of 66, borderline VA at 200, normal QRS and normal axis Q-wave in 3. No ST elevations, no significant change for comparison April 28, 2020 Cardiac monitoring: An order was placed for continuous cardiac monitoring. The monitor shows a rate of 67 with sinus rhythm. Patient was placed on pulse oximetry Medical decision rules: None Imaging studies: See below 1 view chest x-ray by my read No obvious pleural effusion, pneumonia, or pneumothorax. HPI: Patient presents due to concern for dizziness. The patient states that she has been battling a mild productive cough and associated cold symptoms over the last month. The patient was seen yesterday at [facility] and was started on azithromycin. No imaging or blood work done at that time. The patient states that today she noticed that she was dizzy and lightheaded around 2 PM. Patient denies any nausea vomiting fevers or chills. Patient denies any chest pains or shortness of breath. Patient states that her cough did turn productive and discolored within the last 24 hours. Prior to this it had been productive and clear. Patient is a non-smoker. The patient does have a known history of asthma states that she has had some wheezing at home. The patient does have an inhaler which she is only used within the last several days. Patient denies any leg swelling or calf pain. Patient does believe that she has been taking her medications as prescribed. Patient denies any diarrhea or vomiting. PAST MEDICAL HISTORY: See Below PAST SURGICAL HISTORY: See Below SOCIAL HISTORY: See Below HOME MEDICATIONS: See Below ALLERGIES: See Below VITALS: See Below PHYSICAL EXAMINATION: GENERAL: NAD, wearing a mask, non-toxic. Wearing glasses. EYE EXAM: Normal conjunctiva. PERRL, no anisocoria and EOM's grossly intact w/o pain. NECK: Supple, no nuchal rigidity, no adenopathy, non-tender. No signs of meningismus. FROM of the neck with good chin to chest and neck extension. No stridor. LUNGS: Clear to auscultation. Normal chest wall mechanics. HEART: NSR, no MRG. ABDOMEN: Abdomen soft, non-tender, normo-active bowel sounds, no masses, no rebound or guarding. BACK: No CVA TTP. SKIN: No rashes and no bruising. UPPER EXTREMITIES: Upper extremities are grossly normal. LOWER EXTREMITIES: Grossly normal, no edema. NEURO EXAM: A&O x3, cranial nerves II-XII grossly intact, normal speech, moves all 4 extremities. Past Med/Surg History Medical History Asthma Diabetes Heart disease Hyperlipemia Hypertension Obesity Osteoarthritis Surgical History History of appendectomy History of cardiac cath 05/2009, 08/2013; no stents placed History of cholecystectomy History of hysterectomy History of thyroidectomy partial removal thyroid lobe. 02/11/2011 Family History Father Cardiac disorder Mother Diabetes Hypertension Other Coronary heart disease Social History Smoking Status: Never smoker Hx Alcohol Use: No Hx Substance Use: No Preferred Language: Sami Communication Ability: Effective Non Categorical Preschool Teacher Required: No Beliefs That Will Affect Care: None marital status: Current Living Situation: Spouse current occupational status: retired How many Children do You have: 1 Feels Safe at Home: Yes Assistive Devices: None and Cane Allergies Allergies Allergy/AdvReac Type Severity Reaction Status Date / Time hydrochlorothiazide Allergy Unknown unknown Unverified 08/19/22 22:18 Tresiba FlexTouch SOPN Allergy Unknown Uncoded 08/19/22 22:18 Home Meds Home Medications Medication Instructions Recorded Confirmed metoprolol succinate 50 mg 75 mg PO QAM 09/13/18 08/19/22 tablet,extended release 24 hr spironolactone 25 mg tablet 25 mg PO QAM 09/13/18 08/19/22 pantoprazole 40 mg tablet,delayed 40 mg PO QAM 09/19/18 08/19/22 release aspirin 81 mg tablet,delayed 81 mg PO QAM 02/14/21 08/19/22 release (Adult Low Dose Aspirin) cholecalciferol (vitamin D3) 50 4,000 unit PO HS 02/20/21 08/19/22 mcg (2,000 unit) tablet (Vitamin D3) montelukast 10 mg tablet 10 mg PO HS 10/13/21 08/19/22 psyllium husk 0.52 gram capsule 0.52 g PO DAILY 11/21/21 08/19/22 azithromycin 250 mg tablet 250 mg PO UD 08/19/22 08/19/22 cyanocobalamin (vitamin B-12) 1,000 mcg sublingual DAILY 08/19/22 08/19/22 1,000 mcg sublingual tablet quinapril 20 mg tablet 20 mg PO HS 08/19/22 08/19/22 rosuvastatin 20 mg tablet 20 mg PO DAILY 08/19/22 08/19/22 Previous Rx's Medication Instructions Recorded insulin glargine 100 unit/mL (3 9 unit (0.09 mL) subcut QAM 90 10/28/21 mL) subcutaneous pen (Basaglar days #15 mL KwikPen U-100 Insulin) blood sugar diagnostic (Contour #200 ea 01/23/22 Next Test Strips) lancets (Microlet Lancet) #200 ea 05/13/22 BD Kim 2nd Gen Pen Needle 32 #100 ea 05/21/22 gauge x 5/32" (pen needle, diabetic) Results & Data (ED) Vital Signs Vital Signs - 24 hr 08/19/22 18:06 08/19/22 19:25 08/19/22 19:25 Temperature 35.9 C L Temperature Source Temporal Artery Scan Pulse Rate 67 63 Pulse Rate [Right] 63 Pulse Rate from SpO2 Sensor Respiratory Rate 19 18 Respiratory Effort / Characteristics Non-Labored Spontaneous Non-Labored Respiratory Depth Normal Normal Respiratory Pattern Regular Blood Pressure 176/106 H Blood Pressure [Left Arm] 229/87 H Blood Pressure Mean 129 Blood Pressure Mean [Left Arm] 134 Pulse Oximetry 97 98 Oxygen Delivery Method Room Air Room Air Sepsis Recent Fever Within 48 Hours No Sepsis New/Unexplained Change in Mental Status N/A Sepsis Action Taken by Nursing No Action Required 08/19/22 19:25 08/19/22 19:30 08/19/22 19:47 Temperature Temperature Source Pulse Rate 61 58 L Pulse Rate [Right] Pulse Rate from SpO2 Sensor 64 60 Respiratory Rate 18 19 Respiratory Effort / Characteristics Respiratory Depth Respiratory Pattern Blood Pressure 229/95 H Blood Pressure [Left Arm] Blood Pressure Mean 139 Blood Pressure Mean [Left Arm] Pulse Oximetry 98 99 Oxygen Delivery Method Sepsis Recent Fever Within 48 Hours Sepsis New/Unexplained Change in Mental Status Sepsis Action Taken by Nursing 08/19/22 19:47 08/19/22 20:00 08/19/22 20:24 Temperature Temperature Source Pulse Rate 65 59 L 64 Pulse Rate [Right] Pulse Rate from SpO2 Sensor 62 59 L 62 Respiratory Rate 18 19 19 Respiratory Effort / Characteristics Respiratory Depth Respiratory Pattern Blood Pressure Blood Pressure [Left Arm] Blood Pressure Mean Blood Pressure Mean [Left Arm] Pulse Oximetry 97 98 97 Oxygen Delivery Method Sepsis Recent Fever Within 48 Hours Sepsis New/Unexplained Change in Mental Status Sepsis Action Taken by Nursing 08/19/22 20:24 08/19/22 20:30 08/19/22 21:04 Temperature Temperature Source Pulse Rate 63 76 Pulse Rate [Right] Pulse Rate from SpO2 Sensor 66 Respiratory Rate 16 18 Respiratory Effort / Characteristics Respiratory Depth Respiratory Pattern Blood Pressure 216/112 H Blood Pressure [Left Arm] Blood Pressure Mean 146 Blood Pressure Mean [Left Arm] Pulse Oximetry 96 Oxygen Delivery Method Sepsis Recent Fever Within 48 Hours Sepsis New/Unexplained Change in Mental Status Sepsis Action Taken by Nursing 08/19/22 21:09 08/19/22 21:09 08/19/22 21:30 Temperature Temperature Source Pulse Rate 65 60 Pulse Rate [Right] Pulse Rate from SpO2 Sensor 67 61 Respiratory Rate 19 18 Respiratory Effort / Characteristics Respiratory Depth Respiratory Pattern Blood Pressure 214/82 H Blood Pressure [Left Arm] Blood Pressure Mean 126 Blood Pressure Mean [Left Arm] Pulse Oximetry 98 99 Oxygen Delivery Method Sepsis Recent Fever Within 48 Hours Sepsis New/Unexplained Change in Mental Status Sepsis Action Taken by Nursing 08/19/22 22:00 08/19/22 22:30 08/19/22 23:00 Temperature Temperature Source Pulse Rate 66 63 66 Pulse Rate [Right] Pulse Rate from SpO2 Sensor 68 Respiratory Rate 20 19 18 Respiratory Effort / Characteristics Respiratory Depth Respiratory Pattern Blood Pressure Blood Pressure [Left Arm] Blood Pressure Mean Blood Pressure Mean [Left Arm] Pulse Oximetry 97 Oxygen Delivery Method Sepsis Recent Fever Within 48 Hours Sepsis New/Unexplained Change in Mental Status Sepsis Action Taken by Nursing 08/19/22 23:03 08/19/22 23:04 08/19/22 23:28 Temperature Temperature Source Pulse Rate 70 64 Pulse Rate [Right] Pulse Rate from SpO2 Sensor Respiratory Rate 17 Respiratory Effort / Characteristics Respiratory Depth Respiratory Pattern Blood Pressure 175/92 H Blood Pressure [Left Arm] Blood Pressure Mean 119 Blood Pressure Mean [Left Arm] Pulse Oximetry Oxygen Delivery Method Sepsis Recent Fever Within 48 Hours Sepsis New/Unexplained Change in Mental Status Sepsis Action Taken by Nursing 08/19/22 23:08 08/19/22 23:30 08/20/22 00:00 Temperature Temperature Source Pulse Rate 96 H 74 63 Pulse Rate [Right] Pulse Rate from SpO2 Sensor Respiratory Rate 11 L 23 16 Respiratory Effort / Characteristics Respiratory Depth Respiratory Pattern Blood Pressure Blood Pressure [Left Arm] Blood Pressure Mean Blood Pressure Mean [Left Arm] Pulse Oximetry Oxygen Delivery Method Sepsis Recent Fever Within 48 Hours Sepsis New/Unexplained Change in Mental Status Sepsis Action Taken by Nursing 08/20/22 00:30 08/20/22 00:31 08/20/22 00:31 Temperature Temperature Source Pulse Rate 81 72 Pulse Rate [Right] Pulse Rate from SpO2 Sensor 71 Respiratory Rate 19 17 Respiratory Effort / Characteristics Respiratory Depth Respiratory Pattern Blood Pressure 183/90 H Blood Pressure [Left Arm] Blood Pressure Mean 121 Blood Pressure Mean [Left Arm] Pulse Oximetry 98 Oxygen Delivery Method Sepsis Recent Fever Within 48 Hours Sepsis New/Unexplained Change in Mental Status Sepsis Action Taken by Nursing 08/20/22 01:00 Temperature Temperature Source Pulse Rate 66 Pulse Rate [Right] Pulse Rate from SpO2 Sensor 67 Respiratory Rate 20 Respiratory Effort / Characteristics Respiratory Depth Respiratory Pattern Blood Pressure Blood Pressure [Left Arm] Blood Pressure Mean Blood Pressure Mean [Left Arm] Pulse Oximetry 97 Oxygen Delivery Method Sepsis Recent Fever Within 48 Hours Sepsis New/Unexplained Change in Mental Status Sepsis Action Taken by Snf Medications Current Medication List: was personally reviewed by me Laboratory Data Attestation: I reviewed the patient's lab results. 08/19/22 18:19 08/19/22 18:19 Lab Results 08/19/22 08/19/22 08/19/22 Range/Units 18:19 18:19 18:19 WBC 6.47 (4.8-10.8) K/ul RBC 4.40 (4.20-5.40) M/uL Hgb 14.2 (12.0-16.0) g/dl Hct 41.4 (37.0-47.0) % MCV 94.1 (80.0-100.0) fL MCH 32.3 (25.0-34.0) pg MCHC 34.3 (32.0-36.0) g/dL RDW Std Deviation 42.8 (36.4-46.3) fL RDW Coeff of Milana 12.2 (11.5-14.5) % Plt Count 160 (130-400) K/uL MPV 9.7 (9.4-12.4) fL Immature Gran % (Auto) 0.5 % Neut % (Auto) 57.1 % Lymph % (Auto) 25.0 % [place] % (Auto) 9.1 % Eos % (Auto) 7.4 % Baso % (Auto) 0.9 % Neut # (Auto) 3.69 (1.40-6.50) K/uL Lymph # (Auto) 1.62 (1.2-3.4) K/uL [place] # (Auto) 0.59 (0.11-0.59) K/uL Eos # (Auto) 0.48 (0-0.50) K/uL Baso # (Auto) 0.06 (0-0.2) K/uL Immature Gran # (Auto) 0.03 (0.01-0.20) K/uL PT 11.1 (9.0-12.0) Seconds INR 1.0 (0.9-1.1) APTT 31.4 H (21.0-31.0) Seconds PTT Ratio 1.1 Sodium 134 L (136-145) mmol/L Potassium 4.0 (3.5-5.1) mmol/L Chloride 100 (98-107) mmol/L Carbon Dioxide 28 (21-32) mmol/L Anion Gap 6 (3-11) BUN 13 (6-23) mg/dl Creatinine 0.82 (0.6-1.2) mg/dl Est Cr Clr Drug Dosing Not Reportable Est GFR ( Amer) 74.0 ml/min Est GFR (Non-Af Amer) 63.9 ml/min BUN/Creatinine Ratio 15.9 (10-20) Glucose 153 H (70-99(Fasting)) mg/dl Calcium 9.6 (8.5-10.1) mg/dl Total Bilirubin 0.7 (0.2-1.0) mg/dl AST 21 (13-39) U/L ALT 24 (7-52) U/L Alkaline Phosphatase 43 (34-104) U/L Troponin I High Sens 4.6 (0-14) pg/ml Total Protein 7.4 (6.0-8.3) gm/dl Albumin 4.3 (3.4-5.0) gm/dl Globulin 3.1 (2.5-4.0) gm/dl Albumin/Globulin Ratio 1.4 (0.9-2) SARS-CoV-2, RNA, NAAT (NEGATIVE) 08/19/22 Range/Units 22:05 WBC (4.8-10.8) K/ul RBC (4.20-5.40) M/uL Hgb (12.0-16.0) g/dl Hct (37.0-47.0) % MCV (80.0-100.0) fL MCH (25.0-34.0) pg MCHC (32.0-36.0) g/dL RDW Std Deviation (36.4-46.3) fL RDW Coeff of Milana (11.5-14.5) % Plt Count (130-400) K/uL MPV (9.4-12.4) fL Immature Gran % (Auto) % Neut % (Auto) % Lymph % (Auto) % [place] % (Auto) % Eos % (Auto) % Baso % (Auto) % Neut # (Auto) (1.40-6.50) K/uL Lymph # (Auto) (1.2-3.4) K/uL [place] # (Auto) (0.11-0.59) K/uL Eos # (Auto) (0-0.50) K/uL Baso # (Auto) (0-0.2) K/uL Immature Gran # (Auto) (0.01-0.20) K/uL PT (9.0-12.0) Seconds INR (0.9-1.1) APTT (21.0-31.0) Seconds PTT Ratio Sodium (136-145) mmol/L Potassium (3.5-5.1) mmol/L Chloride (98-107) mmol/L Carbon Dioxide (21-32) mmol/L Anion Gap (3-11) BUN (6-23) mg/dl Creatinine (0.6-1.2) mg/dl Est Cr Clr Drug Dosing Est GFR ( Amer) ml/min Est GFR (Non-Af Amer) ml/min BUN/Creatinine Ratio (10-20) Glucose (70-99(Fasting)) mg/dl Calcium (8.5-10.1) mg/dl Total Bilirubin (0.2-1.0) mg/dl AST (13-39) U/L ALT (7-52) U/L Alkaline Phosphatase (34-104) U/L Troponin I High Sens (0-14) pg/ml Total Protein (6.0-8.3) gm/dl Albumin (3.4-5.0) gm/dl Globulin (2.5-4.0) gm/dl Albumin/Globulin Ratio (0.9-2) SARS-CoV-2, RNA, NAAT NEGATIVE (NEGATIVE) Administered Medications Discontinued Medications Sodium Chloride (Nss 1000ml) 1,000 mls @ 999 mls/hr IV .Q1H1M ONE Stop: 08/19/22 20:55 Last Infusion: 08/19/22 21:02 Dose: 0 mls/hr Documented By: Admin: 08/19/22 20:20 Dose: 999 mls/hr Documented By: ENS Imaging Data Radiologist's Impression: Head CT 08/19/22 18:08 CT SCAN OF THE BRAIN WITHOUT IV CONTRAST CLINICAL HISTORY: Dizziness. COMPARISON STUDY: CT of the brain dated 04/28/2022. TECHNIQUE: Unenhanced axial CT scan of the brain is performed from the vertex to the skull base. A dose lowering technique was utilized adhering to the principles of ALARA. CT DOSE: 537.48 mGy.cm FINDINGS: Brain parenchyma: There is age-related involutional change noting mild subcortical and periventricular microangiopathic disease. There is no hemorrhage, mass effect, or evidence of acute territorial ischemia by CT criteria. Degroot-white matter differentiation is preserved. No extra-axial fluid collection is seen. Ventricles, sulci, cisterns: Prominent secondary to involutional change. Intracranial vasculature: There is atherosclerotic calcification of the cavernous carotid and vertebral arteries. Calvarium: Unremarkable. Sinuses and mastoids: There is mild mucosal thickening in the right sphenoid sinus. The remaining visualized paranasal sinuses are clear. The mastoid air cells are well pneumatized. Orbits: The bony orbits are grossly intact. There are bilateral ocular lens implants. IMPRESSION: There is no hemorrhage, mass effect, or evidence of acute territorial ischemia by CT criteria. ACT 112: Negative or not required by law. Electronically signed by: Bossman Henao M.D. 08/19/2022 6:42 PM Discharge Plan Visit Data Chief Complaint: Dizziness Stated Complaint: DIZZINESS,LIGHTHEADED ED Provider: Constantine Lee Discharge Problem: Hypertensive urgency, Dizziness, Cough Patient Disposition: Admitted As Inpatient Forms Stand Alone Forms: My [facility] [employer] Prescriptions Prescriptions: No Action cholecalciferol (vitamin D3) [Vitamin D3] 50 mcg (2,000 unit) tablet 4,000 unit PO HS Basaglar KwikPen U-100 Insulin 100 unit/mL (3 mL) insulin pen 9 unit subcut QAM 90 Days Qty: 15 3RF (DME) Contour Next Test Strips Strip See Rx Instructions .Route Qty: 200 3RF Rx Instructions: Test blood sugar two times daily (DME) lancets [Microlet Lancet] Misc See Rx Instructions .ROUTE .MEDSUPPLY Qty: 200 3RF Rx Instructions: Test blood sugar two times daily (DME) pen needle, diabetic [BD Kim 2nd Gen Pen Needle] 32 gauge x 5/32" needle See Rx Instructions .ROUTE .MEDSUPPLY Qty: 100 3RF Rx Instructions: use once daily aspirin [Adult Low Dose Aspirin] 81 mg tablet,delayed release (DR/EC) 81 mg PO QAM metoprolol succinate 50 mg tablet extended release 24 hr 75 mg PO QAM spironolactone 25 mg tablet 25 mg PO QAM pantoprazole 40 mg tablet,delayed release (DR/EC) 40 mg PO QAM azithromycin 250 mg tablet 250 mg PO UD quinapril 20 mg tablet 20 mg PO HS cyanocobalamin (vitamin B-12) 1,000 mcg tablet, sublingual 1,000 mcg sublingual DAILY rosuvastatin 20 mg tablet 20 mg PO DAILY montelukast 10 mg tablet 10 mg PO HS psyllium husk [Metamucil] 0.52 gram Capsule 0.52 g PO DAILY Referrals Referrals: Mavis Acevedo DO [Primary Care Provider] -
[2022-08-19] MEDS ORDERED: SODIUM CHLORIDE 0.9% 1000ML 1,000 ML IV ONE (19:55)
[2022-08-20] MEDS ORDERED: ACETAMINOPHEN 325 MG TAB PO PRN (02:26)
[2022-08-20] MEDS ORDERED: GLUCOSE 10 TAB/TUBE PO PRN (02:26)
[2022-08-20] MEDS ORDERED: hydrALAZINE HCL 20 MG/ML VIAL IV PRN (02:26)
[2022-08-20] MEDS ORDERED: NITROGLYCERIN SL 0.4 MG/TAB TAB SL PRN (02:26)
[2022-08-20] MEDS ORDERED: POLYETHYLENE (MIRALAX) 17 GM PACK PO PRN (02:26)
[2022-08-20] MEDS ORDERED: GLUCAGON FOR INJ 1 MG VIAL SQ PRN (02:26)
[2022-08-20] MEDS ORDERED: CARBOHYDRATES FOR HYPOGLYCEMIA PO PRN (02:26)
[2022-08-20] MEDS ORDERED: DEXTROSE 50% 50 ML SYRINGE IV PRN (02:26)
[2022-08-20] MEDS ORDERED: GLUCOSE 40% GEL 15 GM TUBE PO PRN (02:26)
--- NOTE | 2022-08-20 04:36 | History and Physical Report ---
DATE OF ADMISSION: 08/20/2022. CHIEF COMPLAINT: Dizziness, hypertensive urgency. HISTORY OF PRESENT ILLNESS: An 87-year-old female with past medical history significant for type 2 diabetes, chronic kidney disease stage III, hyperlipidemia, history of asthma, hypertension, obesity, GERD, history of acute cystitis, rosacea, history of post herpetic nervous system involvement. Lives at home with her . Ambulates with a walker, presents with dizziness. The patient states today she was feeling a lot dizzy and not able to walk because of dizziness, that is the reason she came to the hospital. Found to have high blood pressure. Currently feeling better. Dizziness is improved. Denies nausea. Her vision was blurred when she was feeling dizzy. No earache, no runny nose, no sore throat. She has ongoing cough for about 1 month and she was intially bringing whitish phlegm, but lately she was bringing yellowish phlegm, and doctor and was prescribed azithromycin, which she took 2 doses for 2 days. Earlier when she had cough, she was feeling short of breath, but that has improved. Denies any chest pain. No nausea, no abdominal pain. Normal bowel and bladder movements. Currently resting comfortably and hemodynamically stable. ALLERGIES: HYDROCHLOROTHIAZIDE, TRESIBA, FLEXTOUCH. PAST MEDICAL HISTORY: As mentioned above. PAST SURGICAL HISTORY: Cardiac catheterization, no stents placed, right knee surgery, laparoscopic appendectomy with hysterectomy, partial removal of thyroid nodule, cholecystectomy. MEDICATIONS: The patient is on aspirin 81 mg p.o. daily, azithromycin as directed, vitamin D 50 mcg p.o. daily, vitamin B12 1000 mcg sublingual daily, insulin glargine 9 units daily, metoprolol succinate 75 mg p.o. a.m., montelukast 10 mg p.o. at bedtime, Protonix 40 mg p.o. a.m., Metamucil 0.5 g p.o. daily,quinapril 20 mg p.o. at bedtime, lovastatin 20 mg p.o. daily, spironolactone 25 mg p.o. daily. FAMILY HISTORY: Significant for brother has diabetes, heart disorder, hypertension; mother has diabetes; father has heart disorder. SOCIAL HISTORY: , lives with her . No smoking, no alcohol, no drug use. REVIEW OF SYSTEMS: As per HPI. Rest of the review of systems is negative. PHYSICAL EXAMINATION: GENERAL: The patient is old and frail, not in acute distress. VITAL SIGNS: Temperature 35.9, pulse 66, respiratory rate 20, blood pressure when she came in was 229/87, currently 183/90, oxygen 97% on room air. HEENT: Pupils equal, round and reactive to light. Oral mucosa moist. NECK: No JVD, no neck masses. CARDIOVASCULAR: S1 and S2 heard. Regular rate and rhythm. No murmur, no gallop. RESPIRATORY SYSTEM: Normal AP diameter. No accessory muscle use. No wheezing or crackles. ABDOMEN: Soft, bowel sounds present, nontender, no distention. CENTRAL NERVOUS SYSTEM: Cranial nerves II through XII grossly intact, nonfocal. EXTREMITIES: Lower extremity edema present, no erythema seen. LABORATORY DATA: WBC 6.4, hemoglobin 14.2, hematocrit 41.4, platelets 160. PT 11.1, INR 1, APTT 31.4. Sodium 134, potassium 4, chloride 100, bicarbonate 28, BUN 13, creatinine 0.8, serum glucose 153, calcium 9.6, total bilirubin 0.7, AST 21, ALT 24, alkaline phosphatase 43. Troponin I high sensitivity 4.6. SARS-CoV-2 rapid test negative. IMAGING DATA: CT of the head, no acute findings. Chest x-ray, no acute findings. EKG: Sinus rhythm with marked sinus arrhythmia at a rate of 66, no significant change was found. ASSESSMENT AND PLAN: This is an 87-year-old female who presents with hypertensive urgency and dizziness. 1. Dizziness: Probably secondary to hypertensive urgency. CT of the head is okay. The patient's dizziness is currently improved. Will monitor. 2. Hypertensive urgency: Will continue her home medication of quinapril, metoprolol succinate and spironolactone. She is having issues with blood pressure as outpatient too. Will place on IV hydralazine p.r.n. for now. Follow the echocardiogram. Monitor in the tele. Consult cardiology in the a.m. for adjustment of the medications. 3. Chronic cough: Going on for 1 month with phlegm. Recently started on azithromycin, she took two days, will complete the course. 4. History of asthma: Continue her home inhalers. 5. History of type 2 diabetes: Continue home long-acting insulin. Placed on insulin sliding scale. Follow the blood sugars. 6. Hyperlipidemia: On statin. 7. Chronic kidney disease stage III: Presently with creatinine of 0.8. We will follow the labs. 8. Gastroesophageal reflux disease: On Protonix. 9. Deep venous thrombosis prophylaxis: Placed on heparin subcutaneous. DISPOSITION: Closely monitor in the tele floor. Level 1 full code as per my discussion with the patient. PT, OT prior to discharge. Social service to help with discharge planning. Job ID: [id number] [facility]ASSETT HOSPITALCristy
[2022-08-20 05:00] LABS: Basophils # (auto) 0.03 K/uL (0-0.2); Basophils % (auto) 0.5 %; Eosinophils # (auto) 0.52 K/uL (0-0.50); Eosinophils % (auto) 8.5 %; Hematocrit (blood only) 39.7 % (37.0-47.0); Hemoglobin 13.8 g/dl (12.0-16.0); Immature Granulocytes # (auto) 0.02 K/uL (0.01-0.20); Immature Granulocytes % (auto) 0.3 %; Lymphocytes # (auto) 1.72 K/uL (1.2-3.4); Mean Corpuscular Hemoglobin 32.6 pg (25.0-34.0); Mean Corpuscular Hgb Conc 34.8 g/dL (32.0-36.0); Mean Corpuscular Volume 93.9 fL (80.0-100.0); Mean Platelet Volume 9.6 fL (9.4-12.4); Monocytes # (auto) 0.68 K/uL (0.11-0.59); Monocytes % (auto) 11.1 %; Neutrophils # (auto) 3.17 K/uL (1.40-6.50); Neutrophils % (auto) 51.6 %; Platelet Count 146 K/uL (130-400); RDW Coefficient of Variation 12.3 % (11.5-14.5); RDW Standard Deviation 42.3 fL (36.4-46.3); Red Blood Count 4.23 M/uL (4.20-5.40); White Blood Count 6.14 K/ul (4.8-10.8)
[2022-08-20 05:15] LABS: Anion Gap 2 (3-11); BUN Creatinine Ratio 13.6 (10-20); Blood Urea Nitrogen 11 mg/dl (6-23); Calcium 8.7 mg/dl (8.5-10.1); Carbon Dioxide 28 mmol/L (21-32); Chloride 106 mmol/L (98-107); Est GFR (African American) 75.2 ml/min; Est GFR (Non-African American) 64.8 ml/min; Glucose 127 mg/dl (70-99(Fasting)); Magnesium 1.9 mg/dl (1.7-2.4); Potassium 4.5 mmol/L (3.5-5.1); Sodium 136 mmol/L (136-145)
[2022-08-20 05:23] LABS: Troponin I High Sensitivity 5.3 pg/ml (0-14)
--- NOTE | 2022-08-20 07:32 | XRay Report ---
XR chest 1V portable CLINICAL HISTORY: dizziness TECHNIQUE: Single frontal radiograph of the chest was obtained. Comparison: Comparison is made to chest radiograph 04/28/2022 FINDINGS: No lines and tubes are seen. Calcified aortic knob is seen. The lungs are clear. No evidence of pleur al effusion or pneumothorax. IMPRESSION: No acute chest disease. ACT 112: Negative or not required by law. Electronically signed by: Arslan Servin M.D. 08/20/2022 7:30 AM
[2022-08-20 08:06] LABS: Estimated Average Glucose 143 mg/dl; Hemoglobin A1C 6.6 % (4.5-5.6)
[2022-08-20] MEDS ORDERED: SPIRONOLACTONE 25 MG TAB PO SCH (09:00)
[2022-08-20] MEDS: AZITHROMYCIN 250 MG TAB PO SCH (09:12)
[2022-08-20] MEDS: ASPIRIN 81 MG ECTAB PO SCH (09:12)
[2022-08-20] MEDS: HEPARIN SOD 5,000 UNIT/0.5 ML VIAL SQ SCH ×2 (09:13→21:40)
[2022-08-20] MEDS: PANTOprazole 40 MG TAB PO SCH (09:13)
[2022-08-20] MEDS: ROSUVASTATIN CALCIUM 20 MG TAB PO SCH (09:13)
[2022-08-20] MEDS: CYANOCOBALAMIN (B-12) 500 MCG TABLET PO SCH (09:13)
[2022-08-20] MEDS: METOPROLOL SUCC 25MG EXT REL TAB PO SCH (09:13)
[2022-08-20] MEDS: LANTUS PER UNIT CHARGE SQ SCH (09:18)
[2022-08-20] MEDS: INSULIN ASPART PER UNIT SC SCH ×4 (10:19→20:24)
--- NOTE | 2022-08-20 11:08 | Cardiology Consultation ---
Date of Consultation August 20, 2022 Assessment & Plan (1) Dizziness: (2) Hypertensive urgency: Plan I have increased the patient's enalapril to 20 mg twice daily. I have also decreased her Aldactone to 12.5 mg daily due to the potential of hyperkalemia with the increase enalapril dose. She will have a BMP daily. At this point, the only other recommendation I have is for physical therapy to work with her on balance. Ultimately she may need or benefit from rehab and or an assisted living environment. History of Present Illness Attending Physician: Ángel June MD History of Present Illness This is an elderly 87-year-old female who lives independently with her who is also elderly. She has previously been seen in our clinic by Bruce Decker and Heidi Stiles. History of CAD without prior history of myocardial infarction, congestive heart failure or cardiac arrhythmias. She usually ambulates with a walker. She was in her usual state of health but began to have episodic dizziness while ambulating. No syncope or presyncope. No shortness of breath or activity related chest pain. Allergies Allergy/AdvReac Type Severity Reaction Status Date / Time hydrochlorothiazide Allergy Unknown unknown Unverified 08/19/22 22:18 insulin degludec Allergy Unknown Verified 08/20/22 02:49 [From [employer] [id number]] Home Medications Medication Instructions Recorded Confirmed Type metoprolol succinate 50 mg 75 mg PO QAM 09/13/18 08/19/22 History tablet,extended release 24 hr spironolactone 25 mg tablet 25 mg PO QAM 09/13/18 08/19/22 History pantoprazole 40 mg tablet,delayed 40 mg PO QAM 09/19/18 08/19/22 History release aspirin 81 mg tablet,delayed 81 mg PO QAM 02/14/21 08/19/22 History release (Adult Low Dose Aspirin) cholecalciferol (vitamin D3) 50 4,000 unit PO HS 02/20/21 08/19/22 History mcg (2,000 unit) tablet (Vitamin D3) montelukast 10 mg tablet 10 mg PO HS 10/13/21 08/19/22 History insulin glargine 100 unit/mL (3 9 unit (0.09 mL) subcut QAM 90 10/28/21 08/19/22 Rx mL) subcutaneous pen (Basaglar days #15 mL KwikPen U-100 Insulin) psyllium husk 0.52 gram capsule 0.52 g PO DAILY 11/21/21 08/19/22 History blood sugar diagnostic (Contour #200 ea 01/23/22 08/19/22 Rx Next Test Strips) lancets (Microlet Lancet) #200 ea 05/13/22 08/19/22 Rx BD Kim 2nd Gen Pen Needle 32 #100 ea 05/21/22 08/19/22 Rx gauge x 5/32" (pen needle, diabetic) azithromycin 250 mg tablet 250 mg PO UD 08/19/22 08/19/22 History cyanocobalamin (vitamin B-12) 1,000 mcg sublingual DAILY 08/19/22 08/19/22 History 1,000 mcg sublingual tablet quinapril 20 mg tablet 20 mg PO HS 08/19/22 08/19/22 History rosuvastatin 20 mg tablet 20 mg PO DAILY 08/19/22 08/19/22 History Patient History Medical History Asthma Diabetes Heart disease Hyperlipemia Hypertension Obesity Osteoarthritis Surgical History History of appendectomy History of cardiac cath 05/2009, 08/2013; no stents placed History of cholecystectomy History of hysterectomy History of thyroidectomy partial removal thyroid lobe. 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 All other 10 point review of systems are negative. Physical Exam Physical Exam: General: no acute distress and stated age Head: normocephalic, no masses, lesions, tenderness or abnormalities Eyes: conjunctiva are pink and non-injected, sclera clear Neck: supple, no adenopathy, no bruits, normal jugular venous pulse, no hepatojugular reflux Chest: normal shape and normal respiratory effort Lungs: clear to auscultation and percussion Cardiac Exam: - regular rate & rhythm, no murmurs gallops or rubs - normal S1, normal S2 Pulses: 2(+) throughout Abdomen: abdomen soft, non-tender, no abnormal masses and no hepatosplenomegaly Musculoskeletal: no gait disturbance, no joint inflammation, no deforming arthritis Extremities: no edema and no cyanosis Neuro: grossly normal exam Results & Data ([facility]) Vital Signs (Past 12 Hours) Vital Signs Temp Pulse Pulse Resp BP BP Pulse Ox 08/20/22 10:00 75 24 08/20/22 09:30 69 15 08/20/22 09:00 69 24 95 08/20/22 08:42 83 20 97 08/20/22 08:42 173/79 H 08/20/22 08:00 69 17 08/20/22 07:30 63 19 96 08/20/22 07:00 63 18 08/20/22 06:55 62 08/20/22 03:42 71 08/20/22 03:38 08/20/22 03:38 36.8 C 60 18 169/68 H 97 08/20/22 01:00 66 20 97 08/20/22 00:31 72 17 98 08/20/22 00:31 183/90 H 08/20/22 00:30 81 19 08/20/22 00:00 63 16 08/19/22 23:30 74 23 08/19/22 23:08 96 H 11 L 08/19/22 23:28 64 08/19/22 23:04 175/92 H 08/19/22 23:03 70 17 08/19/22 23:00 66 18 Pulse Ox O2 Del Method O2 Del Method 08/20/22 10:00 08/20/22 09:30 08/20/22 09:00 Room Air 08/20/22 08:42 Room Air 08/20/22 08:42 08/20/22 08:00 08/20/22 07:30 Room Air 08/20/22 07:00 08/20/22 06:55 08/20/22 03:42 08/20/22 03:38 97 Room Air 08/20/22 03:38 Room Air 08/20/22 01:00 08/20/22 00:31 08/20/22 00:31 08/20/22 00:30 08/20/22 00:00 08/19/22 23:30 08/19/22 23:08 08/19/22 23:28 08/19/22 23:04 08/19/22 23:03 08/19/22 23:00 Laboratory Results Laboratory Results - last 24 hr 08/19/22 08/19/22 08/19/22 18:19 18:19 18:19 WBC 6.47 RBC 4.40 Hgb 14.2 Hct 41.4 MCV 94.1 MCH 32.3 MCHC 34.3 RDW Std Deviation 42.8 RDW Coeff of Milana 12.2 Plt Count 160 MPV 9.7 Immature Gran % (Auto) 0.5 Neut % (Auto) 57.1 Lymph % (Auto) 25.0 Bowman % (Auto) 9.1 Eos % (Auto) 7.4 Baso % (Auto) 0.9 Neut # (Auto) 3.69 Lymph # (Auto) 1.62 Bowman # (Auto) 0.59 Eos # (Auto) 0.48 Baso # (Auto) 0.06 Immature Gran # (Auto) 0.03 PT 11.1 INR 1.0 APTT 31.4 H PTT Ratio 1.1 Sodium 134 L Potassium 4.0 Chloride 100 Carbon Dioxide 28 Anion Gap 6 BUN 13 Creatinine 0.82 Est Cr Clr Drug Dosing Not Reportable Est GFR ( Amer) 74.0 Est GFR (Non-Af Amer) 63.9 BUN/Creatinine Ratio 15.9 Glucose 153 H POC Glucose Estimat Average Glucose Hemoglobin A1c Calcium 9.6 Magnesium Total Bilirubin 0.7 AST 21 ALT 24 Alkaline Phosphatase 43 Troponin I High Sens 4.6 Total Protein 7.4 Albumin 4.3 Globulin 3.1 Albumin/Globulin Ratio 1.4 SARS-CoV-2, RNA, NAAT 08/19/22 08/20/22 08/20/22 22:05 04:42 04:42 WBC 6.14 RBC 4.23 Hgb 13.8 Hct 39.7 MCV 93.9 MCH 32.6 MCHC 34.8 RDW Std Deviation 42.3 RDW Coeff of Milana 12.3 Plt Count 146 MPV 9.6 Immature Gran % (Auto) 0.3 Neut % (Auto) 51.6 Lymph % (Auto) 28.0 Bowman % (Auto) 11.1 Eos % (Auto) 8.5 Baso % (Auto) 0.5 Neut # (Auto) 3.17 Lymph # (Auto) 1.72 Bowman # (Auto) 0.68 H Eos # (Auto) 0.52 H Baso # (Auto) 0.03 Immature Gran # (Auto) 0.02 PT INR APTT PTT Ratio Sodium 136 Potassium 4.5 Chloride 106 Carbon Dioxide 28 Anion Gap 2 L BUN 11 Creatinine 0.81 Est Cr Clr Drug Dosing Not Reportable Est GFR ( Amer) 75.2 Est GFR (Non-Af Amer) 64.8 BUN/Creatinine Ratio 13.6 Glucose 127 H POC Glucose Estimat Average Glucose Hemoglobin A1c Calcium 8.7 Magnesium 1.9 Total Bilirubin AST ALT Alkaline Phosphatase Troponin I High Sens 5.3 Total Protein Albumin Globulin Albumin/Globulin Ratio SARS-CoV-2, RNA, NAAT NEGATIVE 08/20/22 08/20/22 04:42 07:46 WBC RBC Hgb Hct MCV MCH MCHC RDW Std Deviation RDW Coeff of Milana Plt Count MPV Immature Gran % (Auto) Neut % (Auto) Lymph % (Auto) Bowman % (Auto) Eos % (Auto) Baso % (Auto) Neut # (Auto) Lymph # (Auto) Bowman # (Auto) Eos # (Auto) Baso # (Auto) Immature Gran # (Auto) PT INR APTT PTT Ratio Sodium Potassium Chloride Carbon Dioxide Anion Gap BUN Creatinine Est Cr Clr Drug Dosing Est GFR ( Amer) Est GFR (Non-Af Amer) BUN/Creatinine Ratio Glucose POC Glucose 129 H Estimat Average Glucose 143 Hemoglobin A1c 6.6 H Calcium Magnesium Total Bilirubin AST ALT Alkaline Phosphatase Troponin I High Sens Total Protein Albumin Globulin Albumin/Globulin Ratio SARS-CoV-2, RNA, NAAT Medications Administered Current Inpatient Medications Acetaminophen (Acetaminophen 325 Mg Tab) 650 mg PO Q4H PRN PRN Reason: Pain or Fever Stop: 09/19/22 02:25 Aspirin ([facility] 81 Mg [facility]) [facility]: 09/19/22 08:59 Last Admin: 08/20/22 09:12 Dose: 81 mg Azithromycin (Azithromycin 250 Mg Tab) [facility] [place]: 08/22/22 09:01 Last Admin: 08/20/22 09:12 Dose: 250 mg Cyanocobalamin (Cyanocobalamin (B-12) 500 Mcg Tablet) 1,000 mcg PO DAILY [facility] Stop: 09/19/22 08:59 Last Admin: 08/20/22 09:13 Dose: 1,000 mcg Dextrose (Dextrose 50% 50 Ml Syringe) 25 - 50 ml IV UD PRN; Protocol PRN Reason: Hypoglycemia Protocol Stop: 09/19/22 02:25 Enalapril Maleate (Enalapril Maleate 10 Mg Tab) 20 mg PO BID [facility] Stop: 09/19/22 10:29 Glucagon (Glucagon For Inj 1 Mg Vial) 1 mg SQ UD PRN; Protocol PRN Reason: Hypoglycemia Protocol Stop: 09/19/22 02:25 Glucose (Glucose 10 Tab/Tube) 4 - 8 tab PO UD PRN; Protocol PRN Reason: Hypoglycemia Treatment Stop: 09/19/22 02:25 Glucose (Glucose 40% Gel 15 Gm Tube) 15 - 30 gm PO UD PRN; Protocol PRN Reason: Hypoglycemia Protocol Stop: 09/19/22 02:25 Heparin Sodium (Porcine) (Heparin Sod 5,000 Unit/0.5 Ml Vial) 5,000 units SQ Q12 [facility] Stop: 09/19/22 08:59 Last Admin: 08/20/22 09:13 Dose: 5,000 units Hydralazine HCl (Hydralazine Hcl 20 Mg/Ml Vial) 7.5 mg IV Q6H PRN PRN Reason: Hypertension Stop: 09/19/22 02:25 Insulin Aspart (Insulin Aspart Per Unit) 0 units SC ACHS [facility] Stop: 09/19/22 07:29 Last Admin: 08/20/22 10:19 Dose: Not Given Insulin Glargine (Lantus Per Unit Charge) 9 units SQ QAM [facility] Stop: 09/19/22 08:59 Last Admin: 08/20/22 09:18 Dose: 9 units Metoprolol Succinate (Metoprolol Succ 25mg Ext Rel Tab) [facility] [place]: 09/19/22 08:59 Last Admin: 08/20/22 09:13 Dose: 75 mg Miscellaneous (Carbohydrates For Hypoglycemia ) 15 - 30 gm PO UD PRN PRN Reason: Hypoglycemia Protocol Stop: 09/19/22 02:25 Montelukast Sodium (Montelukast Sodium 10 Mg Tablet) 10 mg PO HS [facility] Stop: 09/19/22 20:59 Nitroglycerin (Nitroglycerin Sl 0.4 Mg/Tab Tab) 0.4 mg SL UD PRN PRN Reason: Chest Pain Stop: 09/19/22 02:25 Pantoprazole Sodium (Pantoprazole 40 Mg Tab) 40 mg PO QAM [facility] Stop: 09/19/22 08:59 Last Admin: 08/20/22 09:13 Dose: 40 mg Polyethylene Glycol (Polyethylene (Miralax) 17 Gm Pack) 17 gm PO DAILY PRN PRN Reason: Constipation Stop: 09/19/22 02:25 Rosuvastatin Calcium (Rosuvastatin Calcium 20 Mg Tab) 20 mg PO DAILY [facility] Stop: 09/19/22 08:59 Last Admin: 08/20/22 09:13 Dose: 20 mg Spironolactone (Spironolactone 12.5 Mg Tab) 12.5 mg PO QAM [facility] Stop: 09/20/22 08:59 Vitamin D (Cholecalciferol 1,000 Units 25 Mcg Tab) 4,000 units PO HS [facility] Stop: 09/19/22 20:59
[2022-08-20] MEDS: ENALAPRIL MALEATE 10 MG TAB PO SCH ×2 (12:28→21:40)
--- NOTE | 2022-08-20 16:47 | Hospitalist Progress Note ---
Date of Service August 20, 2022 Assessment & Plan (1) Hypertensive urgency: Plan: per admitting service notes with addendum: ASSESSMENT AND PLAN: This is an 87-year-old female who presents with hypertensive urgency and dizziness. 1. Dizziness: Probably secondary to hypertensive urgency. CT of the head is okay. The patient's dizziness is currently improved. Will monitor. Cardiology service consulted Enalapril increased to 40 mg daily Spironolactone decreased Monitor closely 2. Hypertensive urgency: Will continue her home medication of quinapril, metoprolol succinate and spironolactone. She is having issues with blood pressure as outpatient too. Will place on IV hydralazine p.r.n. for now. Follow the echocardiogram. Monitor in the tele. Consult cardiology in the a.m. for adjustment of the medications. Echo pending Management per above 3. Acute bronchitis: Going on for 1 month with phlegm. Recently started on azithromycin, she took two days, will complete the course. Chest x-ray: Normal pneumonia Add nebs, hypertonic saline, Mucinex, incentive spirometry, flutter valve Advair Holding off on prednisone as patient is hypertensive 4. History of asthma: Continue her home inhalers. 5. History of type 2 diabetes: Continue home long-acting insulin. Placed on insulin sliding scale. Follow the blood sugars. 6. Hyperlipidemia: On statin. 7. Chronic kidney disease stage III: Presently with creatinine of 0.8. We will follow the labs. 8. Gastroesophageal reflux disease: On Protonix. 9. Deep venous thrombosis prophylaxis: Placed on heparin subcutaneous. DISPOSITION: Pending Lives with family at home Admission and Anticipated Discharge Date Admission Date: August 20, 2022 Subjective Follow-up for uncontrolled hypertension, dizziness, etc. Seen resting in bed, comfortable Family at the bedside visiting States she feels better compared to yesterday, but still has some mild lightheadedness No chest pain, shortness of breath, palpitations, dizziness Reporting productive cough, improving since Z-Macho started 2 days ago No other symptoms Review of Systems Review of Systems: all noted and negative except for above Physical Exam Physical Exam: General- oriented x 3, not in distress, speaks in sentences with no effort or accessory muscle use Eyes- anicteric Neck- no JVD Lungs-(+) mild wheeze Heart- normal rate, regular rhythm; no murmurs Abdomen- normal bowel sounds, nondistended, soft, nontender Extremities- no pretibial edema, no calf tenderness Neuro- alert, oriented x 3; no gross focal neurologic deficits Skin- warm & dry Results & Data Results & Data ([facility]) Vital Signs (Past 12 Hours) Vital Signs Temp Pulse Pulse Resp BP BP Pulse Ox 08/20/22 16:03 36.9 C 70 20 164/66 H 97 08/20/22 15:28 08/20/22 14:14 36.5 C 70 16 178/91 H 97 08/20/22 12:28 63 08/20/22 12:27 185/92 H 08/20/22 12:00 60 17 08/20/22 11:30 62 20 95 08/20/22 11:00 62 20 08/20/22 10:30 65 17 08/20/22 10:00 75 24 08/20/22 09:30 69 15 08/20/22 09:00 69 24 95 08/20/22 08:42 83 20 97 08/20/22 08:42 173/79 H 08/20/22 08:00 69 17 08/20/22 07:30 63 19 96 08/20/22 07:00 63 18 08/20/22 06:55 62 O2 Del Method 08/20/22 16:03 Room Air 08/20/22 15:28 Room Air 08/20/22 14:14 Room Air 08/20/22 12:28 08/20/22 12:27 08/20/22 12:00 08/20/22 11:30 Room Air 08/20/22 11:00 08/20/22 10:30 08/20/22 10:00 08/20/22 09:30 08/20/22 09:00 Room Air 08/20/22 08:42 Room Air 08/20/22 08:42 08/20/22 08:00 08/20/22 07:30 Room Air 08/20/22 07:00 08/20/22 06:55 all noted and reviewed including below
[2022-08-20] MEDS: LEVALBUTEROL HCL 1.25 MG/3 ML NEB NEB SCH (19:16)
[2022-08-20] MEDS: SODIUM CHLOR 7% 4 ML NEB NEB SCH (19:16)
[2022-08-20] MEDS ORDERED: COUGH DROP (SUGAR FREE) LOZ 24 LOZ/1 BOX BUCCAL PRN (19:26)
[2022-08-20] MEDS ORDERED: guaiFENesin 600 MG TABCR PO SCH (21:00)
[2022-08-20] MEDS ORDERED: ENALAPRIL MALEATE 10 MG TAB PO SCH (21:00)
[2022-08-20] MEDS: CHOLECALCIFEROL 1,000 UNITS 25 MCG TAB PO SCH (21:41)
[2022-08-20] MEDS: MONTELUKAST SODIUM 10 MG TABLET PO SCH (21:41)
[2022-08-21] MEDS: LEVALBUTEROL HCL 1.25 MG/3 ML NEB NEB SCH ×4 (00:39→19:35)
[2022-08-21] MEDS: guaiFENesin SUGAR FREE 200 MG/10 ML UDC PO PRN ×2 (00:49→19:42)
--- NOTE | 2022-08-21 05:54 | Electrocardiogram Report ---
Test Reason : Blood Pressure : / mmHG Vent. Rate : 066 BPM Atrial Rate : 066 BPM P-R Int : 200 ms QRS Dur : 088 ms QT Int : 414 ms P-R-T Axes : 042 -15 030 degrees QTc Int : 434 ms Sinus rhythm with marked sinus arrhythmia Anterior infarct (cited on or before 31-JAN-2019) Abnormal ECG When compared with ECG of 28-APR-2022 16:18, No significant change was found Confirmed by Leo Gambino ([id number]) on 08/21/2022 5:54:34 AM Referred By: REFERRED SELF Confirmed By:Leo Gambino
[2022-08-21] MEDS: SODIUM CHLOR 7% 4 ML NEB NEB SCH ×2 (06:57→19:35)
[2022-08-21 07:00] LABS: Est GFR (Non-African American) 63.9 ml/min
[2022-08-21] MEDS: ENALAPRIL MALEATE 10 MG TAB PO SCH ×2 (07:45→20:41)
[2022-08-21] MEDS: METOPROLOL SUCC 25MG EXT REL TAB PO SCH (07:46)
[2022-08-21] MEDS: PANTOprazole 40 MG TAB PO SCH (07:47)
[2022-08-21] MEDS: SPIRONOLACTONE 12.5 MG TAB PO SCH (07:47)
[2022-08-21] MEDS: ASPIRIN 81 MG ECTAB PO SCH (07:47)
[2022-08-21] MEDS: CYANOCOBALAMIN (B-12) 500 MCG TABLET PO SCH (07:48)
[2022-08-21] MEDS: INSULIN ASPART PER UNIT SC SCH ×4 (07:48→20:44)
[2022-08-21] MEDS: ROSUVASTATIN CALCIUM 20 MG TAB PO SCH (07:48)
[2022-08-21] MEDS: HEPARIN SOD 5,000 UNIT/0.5 ML VIAL SQ SCH ×2 (07:48→20:40)
[2022-08-21] MEDS: AZITHROMYCIN 250 MG TAB PO SCH (07:48)
[2022-08-21] MEDS: LANTUS PER UNIT CHARGE SQ SCH (07:49)
[2022-08-21] MEDS: LIDOCAINE 5% 1 PATCH TD SCH (12:43)
--- NOTE | 2022-08-21 12:51 | Hospitalist Progress Note ---
Date of Service August 21, 2022 Assessment & Plan (1) Hypertensive urgency: Plan: per admitting service notes with addendum: ASSESSMENT AND PLAN: This is an 87-year-old female who presents with hypertensive urgency and dizziness. 1. Dizziness: Probably secondary to hypertensive urgency. CT of the head is okay. The patient's dizziness is currently improved. Will monitor. Cardiology service consulted Enalapril increased to 40 mg daily Spironolactone decreased Monitor closely 08/21 BP improved dizziness mostly resolved PT/OT eval 2. Hypertensive urgency: Will continue her home medication of quinapril, metoprolol succinate and spironolactone. She is having issues with blood pressure as outpatient too. Will place on IV hydralazine p.r.n. for now. Follow the echocardiogram. Monitor in the tele. Consult cardiology in the a.m. for adjustment of the medications. Echo pending Management per above 3. Acute bronchitis: Going on for 1 month with phlegm. Recently started on azithromycin, she took two days, will complete the course. Chest x-ray: Normal pneumonia Add nebs, hypertonic saline, Mucinex, incentive spirometry, flutter valve Advair Holding off on prednisone as patient is hypertensive 08/21 still has wheezing, although improved add Prednisone 20mg po daily today given BP is underl control continue nebs, hypertonic saline, Mucinex, incentive spirometry, flutter valve Advair 4. History of asthma: Continue her home inhalers. 5. History of type 2 diabetes: Continue home long-acting insulin. Placed on insulin sliding scale. Follow the blood sugars. 6. Hyperlipidemia: On statin. 7. Chronic kidney disease stage III: Presently with creatinine of 0.8. We will follow the labs. 8. Gastroesophageal reflux disease: On Protonix. 9. Deep venous thrombosis prophylaxis: Placed on heparin subcutaneous. DISPOSITION: Pending Lives with family at home Admission and Anticipated Discharge Date Admission Date: August 20, 2022 Subjective ff up for hypertensive urgency, acute bronchitis with asthma exacerbation, etc seen resting in bed, not in distress comfortable states dizziness has mostly resolved no headache, focal neuro deficits, chest pain, palpitations breathing also improving, has occasional coughing bouts reports severe R lower rib pain this morning- seems to be improving no other symptoms Review of Systems Review of Systems: all noted and negative except for above Physical Exam Physical Exam: General- oriented x 3, not in distress, speaks in sentences with no effort or accessory muscle use Eyes- anicteric Neck- no JVD Lungs- mild scattered wheeze BL Heart- normal rate, regular rhythm; no murmurs Abdomen- normal bowel sounds, nondistended, soft, nontender Extremities- no pretibial edema, no calf tenderness Neuro- alert, oriented x 3; no gross focal neurologic deficits Skin- warm & dry Results & Data Results & Data ([facility]) Vital Signs (Past 12 Hours) Vital Signs Temp Pulse Resp BP Pulse Ox O2 Del Method 08/21/22 12:11 36.7 C 67 19 112/68 95 Room Air 08/21/22 07:24 36.8 C 76 18 113/67 95 Room Air 08/21/22 06:57 81 17 96 Room Air 08/21/22 03:00 36.5 C 60 16 101/74 94 Room Air all noted and reviewed including below
--- NOTE | 2022-08-21 13:10 | XRay Report ---
XR ribs LT min 2V HISTORY: 87 years-old Female pain, r/o fracture acute left-sided rib pain COMPARISON: Chest radiograph 08/19/2022 TECHNIQUE: 2 views of the left ribs FINDINGS: Left shoulder rotator cuff calcific tendinosis. Cardiomegaly. No acute displaced rib fracture identif ied. No pneumothorax identified. IMPRESSION: No acute displaced rib fracture identified. ACT 112: Negative or not required by law. The above report was generated using voice recognition software. It may contain grammatical, syntax o r spelling errors. Electronically signed by: Feliz Figueroa M.D. 08/21/2022 1:09 PM
[2022-08-21] MEDS: FLUTICASONE/VILANTEROL 100/25MCG 14 PUFFS/INHALER INH SCH (13:50)
[2022-08-21] MEDS: predniSONE 20 MG TAB PO SCH (13:50)
--- NOTE | 2022-08-21 14:56 | Cardiology Progress Note ---
Date of Service August 21, 2022 Assessment & Plan (1) Dizziness: (2) Hypertensive urgency: Plan The patient's blood pressure has improved with the increase in enalapril. Follow-up potassium 4.0. Would continue to monitor. The patient is working with physical therapy. Has not had any dizziness while ambulating. No additional cardiac testing at this time. The patient can be discharged per the hospitalist service. Admission and Anticipated Discharge Date Admission Date: August 20, 2022 Subjective The patient had an uneventful night. Family are visiting. Physical therapy has been working with her. Review of Systems Review of Systems: Review of Systems: See HPI for pertinent positives. All other 10 point review of systems are negative. Physical Exam Physical Exam: General: no acute distress and stated age Head: normocephalic, no masses, lesions, tenderness or abnormalities Eyes: conjunctiva are pink and non-injected, sclera clear Neck: supple, no adenopathy, no bruits, normal jugular venous pulse, no hepatojugular reflux Chest: normal shape and normal respiratory effort Lungs: clear to auscultation and percussion Cardiac Exam: - regular rate & rhythm, no murmurs gallops or rubs - normal S1, normal S2 Pulses: 2(+) throughout Abdomen: abdomen soft, non-tender, no abnormal masses and no hepatosplenomegaly Musculoskeletal: no gait disturbance, no joint inflammation, no deforming arthritis Extremities: no edema and no cyanosis Neuro: grossly normal exam Results & Data ([facility]) Vital Signs (Past 12 Hours) Vital Signs Temp Pulse Pulse Resp BP Pulse Ox O2 Del Method 08/21/22 08:00 74 08/21/22 14:25 Room Air 08/21/22 12:11 36.7 C 67 19 112/68 95 Room Air 08/21/22 07:24 36.8 C 76 18 113/67 95 Room Air 08/21/22 06:57 81 17 96 Room Air 08/21/22 03:00 36.5 C 60 16 101/74 94 Room Air Laboratory Results Laboratory Results - last 24 hr 08/20/22 08/20/22 08/21/22 16:25 20:14 05:41 Sodium 138 Potassium 4.0 Chloride 106 Carbon Dioxide 26 Anion Gap 6 BUN 18 Creatinine 0.82 Est Cr Clr Drug Dosing 44.0 Est GFR ( Amer) 74.0 Est GFR (Non-Af Amer) 63.9 BUN/Creatinine Ratio 22.0 H Glucose 125 H POC Glucose 108 H 130 H Calcium 9.0 08/21/22 08/21/22 07:22 11:13 Sodium Potassium Chloride Carbon Dioxide Anion Gap BUN Creatinine Est Cr Clr Drug Dosing Est GFR ( Amer) Est GFR (Non-Af Amer) BUN/Creatinine Ratio Glucose POC Glucose 134 H 151 H Calcium Medications Administered Current Inpatient Medications Acetaminophen (Acetaminophen 325 Mg Tab) 650 mg PO Q4H PRN PRN Reason: Pain or Fever Stop: 09/19/22 02:25 Aspirin (Aspirin 81 Mg Ectab) 81 mg PO QAM [facility] Stop: 09/19/22 08:59 Last Admin: 08/21/22 07:47 Dose: 81 mg Azithromycin ([facility] 250 Mg Tab) [facility]: 08/22/22 09:01 Last Admin: 08/21/22 07:48 Dose: 250 mg Cyanocobalamin (Cyanocobalamin (B-12) 500 Mcg Tablet) 1,000 mcg PO DAILY [facility] Stop: 09/19/22 08:59 Last Admin: 08/21/22 07:48 Dose: 1,000 mcg Dextrose (Dextrose 50% 50 Ml Syringe) 25 - 50 ml IV UD PRN; Protocol PRN Reason: Hypoglycemia Protocol Stop: 09/19/22 02:25 Enalapril Maleate (Enalapril Maleate 10 Mg Tab) 20 mg PO BID [facility] Stop: 09/19/22 10:29 Last Admin: 08/21/22 07:45 Dose: 20 mg Fluticasone/Vilanterol (Fluticasone/Vilanterol 100/25mcg 14 Puffs/Inhaler) 1 puffs INH DAILY [facility] Stop: 09/20/22 12:59 Last Admin: 08/21/22 13:50 Dose: 1 puffs Glucagon (Glucagon For Inj 1 Mg Vial) 1 mg SQ UD PRN; Protocol PRN Reason: Hypoglycemia Protocol Stop: 09/19/22 02:25 Glucose (Glucose 10 Tab/Tube) 4 - 8 tab PO UD PRN; Protocol PRN Reason: Hypoglycemia Treatment Stop: 09/19/22 02:25 Glucose (Glucose 40% Gel 15 Gm Tube) 15 - 30 gm PO UD PRN; Protocol PRN Reason: Hypoglycemia Protocol Stop: 09/19/22 02:25 Guaifenesin (Guaifenesin Sugar Free 200 Mg/10 Ml Udc) 200 mg PO Q6H PRN PRN Reason: Cough Stop: 09/19/22 19:24 Last Admin: 08/21/22 00:49 Dose: 200 mg Guaifenesin (Guaifenesin 600 Mg Tabcr) 600 mg PO Q12 [facility] Stop: 09/20/22 14:09 Heparin Sodium (Porcine) (Heparin Sod 5,000 Unit/0.5 Ml Vial) 5,000 units SQ Q12 [facility] Stop: 09/19/22 08:59 Last Admin: 08/21/22 07:48 Dose: 5,000 units Hydralazine HCl (Hydralazine Hcl 20 Mg/Ml Vial) 7.5 mg IV Q6H PRN PRN Reason: Hypertension Stop: 09/19/22 02:25 Insulin Aspart (Insulin Aspart Per Unit) 0 units SC [facility] Stop: 09/19/22 07:29 Last Admin: 08/21/22 11:51 Dose: Not Given Insulin Glargine (Lantus Per Unit Charge) 9 units SQ [facility] Stop: 09/19/22 08:59 Last Admin: 08/21/22 07:49 Dose: 9 units Levalbuterol HCl (Levalbuterol Hcl 1.25 Mg/3 Ml Neb) 1.25 mg NEB Q6R [facility]; Protocol Stop: 09/19/22 18:59 Last Admin: 08/21/22 13:01 Dose: Not Given Lidocaine (Lidocaine 5% 1 Patch) 1 patch TD [facility] Stop: 09/20/22 10:59 Last Admin: 08/21/22 12:43 Dose: Not Given Menthol (Cough Drop (Sugar Free) Lolis 24 Lolis/1 Box) 1 lolis BUCCAL Q1H PRN PRN Reason: Sore Throat Stop: 09/19/22 19:25 Last Admin: 08/20/22 19:39 Dose: 1 lolis Metoprolol Succinate (Metoprolol Succ 25mg Ext Rel Tab) [facility] [place]: 09/19/22 08:59 Last Admin: 08/21/22 07:46 Dose: 75 mg Miscellaneous (Carbohydrates For Hypoglycemia ) 15 - 30 gm PO UD PRN PRN Reason: Hypoglycemia Protocol Stop: 09/19/22 02:25 Miscellaneous (Remove Lidoderm Patch) 1 each N/A DAILY@2100 [facility] Stop: 09/20/22 20:59 Montelukast Sodium (Montelukast Sodium 10 Mg Tablet) 10 mg PO HS [facility] Stop: 09/19/22 20:59 Last Admin: 08/20/22 21:41 Dose: 10 mg Nitroglycerin (Nitroglycerin Sl 0.4 Mg/Tab Tab) 0.4 mg SL UD PRN PRN Reason: Chest Pain Stop: 09/19/22 02:25 Pantoprazole Sodium (Pantoprazole 40 Mg Tab) 40 mg PO QAM [facility] Stop: 09/19/22 08:59 Last Admin: 08/21/22 07:47 Dose: 40 mg Polyethylene Glycol (Polyethylene (Miralax) 17 Gm Pack) 17 gm PO DAILY PRN PRN Reason: Constipation Stop: 09/19/22 02:25 Prednisone (Prednisone 20 Mg Tab) 20 mg PO DAILY [facility] Stop: 09/20/22 12:59 Last Admin: 08/21/22 13:50 Dose: 20 mg Rosuvastatin Calcium (Rosuvastatin Calcium 20 Mg Tab) 20 mg PO DAILY [facility] Stop: 09/19/22 08:59 Last Admin: 08/21/22 07:48 Dose: 20 mg Sodium Chloride (Sodium Chlor 7% 4 Ml Neb) 4 ml NEB BIDR [facility] Stop: 09/19/22 18:59 Last Admin: 08/21/22 06:57 Dose: 4 ml Spironolactone (Spironolactone 12.5 Mg Tab) 12.5 mg PO QAM [facility] Stop: 09/20/22 08:59 Last Admin: 08/21/22 07:47 Dose: 12.5 mg Vitamin D (Cholecalciferol 1,000 Units 25 Mcg Tab) 4,000 units PO HS [facility] Stop: 09/19/22 20:59 Last Admin: 08/20/22 21:41 Dose: 4,000 units
[2022-08-21] MEDS: guaiFENesin 600 MG TABCR PO SCH ×2 (15:48→20:42)
[2022-08-21] MEDS: MONTELUKAST SODIUM 10 MG TABLET PO SCH (20:41)
[2022-08-21] MEDS: CHOLECALCIFEROL 1,000 UNITS 25 MCG TAB PO SCH (20:43)
[2022-08-22] MEDS: LEVALBUTEROL HCL 1.25 MG/3 ML NEB NEB SCH ×2 (00:36→06:52)
[2022-08-22 06:40] LABS: BUN Creatinine Ratio 24.4 (10-20); Calcium 9.2 mg/dl (8.5-10.1); Est GFR (African American) 69.9 ml/min; Est GFR (Non-African American) 60.3 ml/min; Potassium 3.9 mmol/L (3.5-5.1)
[2022-08-22] MEDS: SODIUM CHLOR 7% 4 ML NEB NEB SCH (06:52)
[2022-08-22] MEDS: INSULIN ASPART PER UNIT SC SCH (07:57)
[2022-08-22] MEDS: LANTUS PER UNIT CHARGE SQ SCH (08:03)
[2022-08-22] MEDS: guaiFENesin 600 MG TABCR PO SCH (08:04)
[2022-08-22] MEDS: FLUTICASONE/VILANTEROL 100/25MCG 14 PUFFS/INHALER INH SCH (08:04)
[2022-08-22] MEDS: ASPIRIN 81 MG ECTAB PO SCH (08:04)
[2022-08-22] MEDS: ENALAPRIL MALEATE 10 MG TAB PO SCH (08:05)
[2022-08-22] MEDS: SPIRONOLACTONE 12.5 MG TAB PO SCH (08:05)
[2022-08-22] MEDS: CYANOCOBALAMIN (B-12) 500 MCG TABLET PO SCH (08:05)
[2022-08-22] MEDS: PANTOprazole 40 MG TAB PO SCH (08:06)
[2022-08-22] MEDS: METOPROLOL SUCC 25MG EXT REL TAB PO SCH (08:06)
[2022-08-22] MEDS: ROSUVASTATIN CALCIUM 20 MG TAB PO SCH (08:06)
[2022-08-22] MEDS: AZITHROMYCIN 250 MG TAB PO SCH (08:07)
[2022-08-22] MEDS: predniSONE 20 MG TAB PO SCH (08:07)
[2022-08-22] MEDS: LIDOCAINE 5% 1 PATCH TD SCH (08:08)
[2022-08-22] MEDS: HEPARIN SOD 5,000 UNIT/0.5 ML VIAL SQ SCH (08:08)
--- NOTE | 2022-08-22 10:43 | Hospitalist Progress Note ---
Date of Service August 22, 2022 delayed entry date of service noted above Assessment & Plan (1) Hypertensive urgency: Plan: per admitting service notes with addendum: ASSESSMENT AND PLAN: This is an 87-year-old female who presents with hypertensive urgency and dizziness. 1. Dizziness: Probably secondary to hypertensive urgency. CT of the head is okay. The patient's dizziness is currently improved. Will monitor. Cardiology service consulted Enalapril increased to 40 mg daily Spironolactone decreased Monitor closely 08/21 BP improved dizziness mostly resolved PT/OT eval 08/22 Blood pressure improved Continue enalapril 20 mg twice daily at home 2. Hypertensive urgency: Management per above 3. Acute bronchitis: Going on for 1 month with phlegm. Recently started on azithromycin, she took two days, will complete the course. Chest x-ray: Normal pneumonia Add nebs, hypertonic saline, Mucinex, incentive spirometry, flutter valve Advair Holding off on prednisone as patient is hypertensive 08/21 still has wheezing, although improved add Prednisone 20mg po daily today given BP is underl control continue nebs, hypertonic saline, Mucinex, incentive spirometry, flutter valve Breo 08/22 Wheezing resolved Continue few more days of prednisone, Breo, nebs, Mucinex, incentive spirometer and flutter valve at home Follow-up with primary care physician in 1 week 4. History of asthma: Management per above 5. History of type 2 diabetes: Continue present regimen 6. Hyperlipidemia: On statin. 7. Chronic kidney disease stage III: Stable 8. Gastroesophageal reflux disease: On Protonix. 9. Deep venous thrombosis prophylaxis: Placed on heparin subcutaneous. DISPOSITION: Discharged to Home with home health services Follow-up with primary care physician in 1 week plan of care discussed with patient in detail and at length all questions answered she is understanding, agreeable, comfortable with the plan of care Admission and Anticipated Discharge Date Admission Date: August 20, 2022 Subjective Follow-up for hypertensive urgency, acute asthma exacerbation, etc. Seen sitting up in bed, comfortable, not in distress States she feels fine overall Feeling better overall Denies headache, chest pain, shortness of breath No abdominal pain, nausea or vomiting Breathing is much better, no cough, no shortness of breath No other symptoms States she is ready and would like to be discharged Review of Systems Review of Systems: all noted and negative except for above Physical Exam Physical Exam: General- oriented x 3, not in distress, speaks in sentences with no effort or accessory muscle use Eyes- anicteric Neck- no JVD Lungs- clear breath sounds bilaterally, no crackles or wheezing Heart- normal rate, regular rhythm; no murmurs Abdomen- normal bowel sounds, nondistended, soft, nontender Extremities- no pretibial edema, no calf tenderness Neuro- alert, oriented x 3; no gross focal neurologic deficits Skin- warm & dry Results & Data Results & Data ([facility]) Vital Signs (Past 12 Hours) Vital Signs Temp Pulse Pulse Pulse Pulse Resp BP 08/22/22 10:16 36.8 C 80 78 18 115/68 08/22/22 08:00 84 08/22/22 08:00 08/22/22 07:30 36.7 C 80 18 115/68 08/22/22 08:00 36.8 C 78 18 08/22/22 06:52 78 17 08/22/22 03:00 08/22/22 03:25 36.4 C L 83 18 124/73 08/22/22 00:37 81 18 08/21/22 23:00 81 08/21/22 22:57 36.7 C 81 20 125/74 BP Pulse Ox Pulse Ox O2 Del Method O2 Del Method 08/22/22 10:16 117/69 93 08/22/22 08:00 08/22/22 08:00 Room Air 08/22/22 07:30 96 Room Air 08/22/22 08:00 117/69 93 Room Air 08/22/22 06:52 97 Room Air 08/22/22 03:00 94 Room Air 08/22/22 03:25 94 Room Air 08/22/22 00:37 94 Room Air 08/21/22 23:00 08/21/22 22:57 94 Room Air all noted and reviewed including below
--- NOTE | 2022-08-28 16:39 | Discharge Summary ---
Discharge Summary Date of Service August 28, 2022 delayed entry date of service noted above Notes For Next Care Provider Medication Changes From Visit New medications: ENALAPRIL-replacement for quinapril PREDNISONE-dialysis 3 days XOPENEX/ATROVENT-3 times daily then as needed BREO-started for asthma Admission HPI Per Admitting Provider HISTORY OF PRESENT ILLNESS: An 87-year-old female with past medical history significant for type 2 diabetes, chronic kidney disease stage III, hyperlipidemia, history of asthma, hypertension, obesity, GERD, history of acute cystitis, rosacea, history of post herpetic nervous system involvement. Lives at home with her . Ambulates with a walker, presents with dizziness. The patient states today she was feeling a lot dizzy and not able to walk because of dizziness, that is the reason she came to the hospital. Found to have high blood pressure. Currently feeling better. Dizziness is improved. Denies nausea. Her vision was blurred when she was feeling dizzy. No earache, no runny nose, no sore throat. She has ongoing cough for about 1 month and she was intially bringing whitish phlegm, but lately she was bringing yellowish phlegm, and doctor and was prescribed azithromycin, which she took 2 doses for 2 days. Earlier when she had cough, she was feeling short of breath, but that has improved. Denies any chest pain. No nausea, no abdominal pain. Normal bowel and bladder movements. Currently resting comfortably and hemodynamically stable. ALLERGIES: HYDROCHLOROTHIAZIDE, TRESIBA, FLEXTOUCH. PAST MEDICAL HISTORY: As mentioned above. PAST SURGICAL HISTORY: Cardiac catheterization, no stents placed, right knee surgery, laparoscopic appendectomy with hysterectomy, partial removal of thyroid nodule, cholecystectomy. MEDICATIONS: The patient is on aspirin 81 mg p.o. daily, azithromycin as directed, vitamin D 50 mcg p.o. daily, vitamin B12 1000 mcg sublingual daily, insulin glargine 9 units daily, metoprolol succinate 75 mg p.o. a.m., montelukast 10 mg p.o. at bedtime, Protonix 40 mg p.o. a.m., Metamucil 0.5 g p.o. daily,quinapril 20 mg p.o. at bedtime, lovastatin 20 mg p.o. daily, spironolactone 25 mg p.o. daily. FAMILY HISTORY: Significant for brother has diabetes, heart disorder, hypertension; mother has diabetes; father has heart disorder. SOCIAL HISTORY: , lives with her . No smoking, no alcohol, no drug use. REVIEW OF SYSTEMS: As per HPI. Rest of the review of systems is negative. PHYSICAL EXAMINATION: GENERAL: The patient is old and frail, not in acute distress. VITAL SIGNS: Temperature 35.9, pulse 66, respiratory rate 20, blood pressure when she came in was 229/87, currently 183/90, oxygen 97% on room air. HEENT: Pupils equal, round and reactive to light. Oral mucosa moist. NECK: No JVD, no neck masses. CARDIOVASCULAR: S1 and S2 heard. Regular rate and rhythm. No murmur, no gallop. RESPIRATORY SYSTEM: Normal AP diameter. No accessory muscle use. No wheezing or crackles. ABDOMEN: Soft, bowel sounds present, nontender, no distention. CENTRAL NERVOUS SYSTEM: Cranial nerves II through XII grossly intact, nonfocal. EXTREMITIES: Lower extremity edema present, no erythema seen. Admission Exam Per Admitting Provider Per above Principal Dx & Hospital Course #1 = Principal Diagnosis (1) Hypertensive urgency: per admitting service notes with addendum: ASSESSMENT AND PLAN: This is an 87-year-old female who presents with hypertensive urgency and dizziness. 1. Dizziness: Secondary to hypertensive urgency CT of the head unremarkable Cardiology service consulted Quinapril discontinued, started on enalapril 20 mg twice a day 08/21 BP improved dizziness mostly resolved PT/OT eval 08/22 Blood pressure improved Dizziness resolved follow-up with primary care physician in 1 week Continue enalapril 20 mg twice daily at home 2. Hypertensive urgency: Management per above 3. Acute bronchitis: Going on for 1 month with phlegm. Chest x-ray: No pneumonia added Completed course of previously prescribed azithromycin and admitted Added low-dose prednisone, Breo, nebs, hypertonic saline, Mucinex, incentive spirometry, flutter valve 3/10 Wheezing resolved Continue few more days of prednisone, Breo, nebs, Mucinex, incentive spirometer and flutter valve at home Follow-up with primary care physician in 1 week 4. History of asthma: Management per above 5. History of type 2 diabetes: Continue present regimen 6. Hyperlipidemia: On statin. 7. Chronic kidney disease stage III: Stable 8. Gastroesophageal reflux disease: On Protonix. 9. Deep venous thrombosis prophylaxis: Placed on heparin subcutaneous. DISPOSITION: Discharged to Home with home health services Follow-up with primary care physician in 1 week plan of care discussed with patient in detail and at length all questions answered she is understanding, agreeable, comfortable with the plan of care Discharge Exam General- oriented x 3, not in distress, speaks in sentences with no effort or accessory muscle use Eyes- anicteric Neck- no JVD Lungs- clear breath sounds bilaterally, no rales/wheezes Heart- normal rate, regular rhythm; no murmurs Abdomen- normal bowel sounds, nondistended, soft, nontender Extremities- no pretibial edema, no calf tenderness Neuro- alert, oriented x 3; no gross focal neurologic deficits Skin- warm & dry Updated Medication List Medication Instructions Recorded Confirmed Type metoprolol succinate 50 mg 75 mg PO QAM 09/13/18 08/28/22 History tablet,extended release 24 hr spironolactone 25 mg tablet 25 mg PO QAM 09/13/18 08/28/22 History pantoprazole 40 mg tablet,delayed 40 mg PO QAM 09/19/18 08/19/22 History release aspirin 81 mg tablet,delayed 81 mg PO QAM 02/14/21 08/28/22 History release (Adult Low Dose Aspirin) cholecalciferol (vitamin D3) 50 4,000 unit PO HS 02/20/21 08/28/22 History mcg (2,000 unit) tablet (Vitamin D3) montelukast 10 mg tablet 10 mg PO HS 10/13/21 08/28/22 History insulin glargine 100 unit/mL (3 9 unit (0.09 mL) subcut QAM 90 10/28/21 08/19/22 Rx mL) subcutaneous pen (agl days #15 mL KwikPen U-100 Insulin) psyllium husk 0.52 gram capsule 0.52 g PO DAILY 11/21/21 08/19/22 History blood sugar diagnostic (Contour #200 ea 01/23/22 08/28/22 Rx Next Test Strips) lancets (Microlet Lancet) #200 ea 05/13/22 08/28/22 Rx BD Kim 2nd Gen Pen Needle 32 #100 ea 05/21/22 08/19/22 Rx gauge x 5/32" (pen needle, diabetic) cyanocobalamin (vitamin B-12) 1,000 mcg sublingual DAILY 08/19/22 08/28/22 History 1,000 mcg sublingual tablet rosuvastatin 20 mg tablet 20 mg PO DAILY 08/19/22 08/28/22 History enalapril maleate 10 mg tablet 20 mg PO BID 30 days #120 tabs 08/22/22 08/28/22 Rx fluticasone furoate 100 1 ea inhalation DAILY #60 ea 08/22/22 08/28/22 Rx mcg-vilanterol 25 mcg/dose inhalation powder (Breo Ellipta) levalbuterol HCl 1.25 mg/3 mL 1.25 mg (3 mL) NEB TID 3 days #72 08/22/22 08/28/22 Rx solution for nebulization mL Hospital Stay Data Consultations 08/19/22 22:03 ED Decision to Admit Stat 08/20/22 08:00 Consult Cardiology Routine Diagnostic Imagining Performed 08/19/22 18:08 CT head/brain wo con Stat Pending Results Patient Have Any Pending Studies at Discharge: No Discharge Instructions Given to Patient (Per Discharging Provider) PLEASE REFER TO YOUR NEW MEDICATION LIST AND FOLLOW INSTRUCTIONS CAREFULLY. YOUR NEW MEDICATIONS INCLUDE: ENALAPRIL- for blood pressure control PREDNISONE- steroid for asthma XOPENEX/ATROVENT-nebulizer for asthma BREO- for intermediate asthma control Continue using incentive spirometry and flutter valve at home. PLEASE CALL YOUR PRIMARY CARE PHYSICIAN OR RETURN TO THE ER IF WITH WORSENING OF SYMPTOMS, INCLUDING shortness of breath, cough, fever/chills, headache, chest pain, dizziness, weakness, etc FOLLOW UP WITH PRIMARY CARE PHYSICIAN IN 1 WEEK. Total Time Total Time Spent Total Time Spent (In Minutes): >30 minutes
== END 2022-08-22 10:51 | disposition home health service (06) | DRG 305 ==
LOC: ED 17:57 → EDINP 08-20 02:06 → INTOOBSV 08-20 02:06 → 2S 08-20 02:27
DX: E66.9 Obesity, unspecified; E11.22 Type 2 diabetes mellitus with diabetic chronic kidney disease; Z79.82 Long term (current) use of aspirin; N18.30 Chronic kidney disease, stage 3 unspecified; I12.9 Hypertensive chronic kidney disease with stage 1 through stage 4 chronic kidney disease, or unspecified chronic kidney disease; J20.9 Acute bronchitis, unspecified; I16.0 Hypertensive urgency; J45.909 Unspecified asthma, uncomplicated; Z88.8 Allergy status to other drugs, medicaments and biological substances; E78.5 Hyperlipidemia, unspecified; Z82.49 Family history of ischemic heart disease and other diseases of the circulatory system; I25.10 Atherosclerotic heart disease of native coronary artery without angina pectoris; Z79.899 Other long term (current) drug therapy; Z79.4 Long term (current) use of insulin; Z68.39 Body mass index [BMI] 39.0-39.9, adult; K21.9 Gastro-esophageal reflux disease without esophagitis